=== PATIENT | female | born 1955 | race Caucasian/White ===

== ENCOUNTER 2020-06-30 10:36 | Outpatient (REF) | payer OTHER, SELFPAY ==
[2020-06-30 11:14] LABS: MANUAL DIFF FLAG NO
[2020-06-30 11:35] LABS: Basophils Absolute Auto 0.1 X10*3/uL (0.0-0.2); Basophils Percent Auto 1.1 % (0-2); Eosinophils Absolute Auto 0.1 X10*3/uL (0.0-0.4); Eosinophils Percent Auto 2.5 % (0-4); Hematocrit 46.1 % (37-47); Hemoglobin 15.1 g/dl (12.0-16.0); Imm Gran Abs Auto 0.03 X10*3/uL (0.00-0.03); Imm Gran Pct Auto 0.5 % (0.0-0.4); Lymphocytes Absolute Auto 1.5 X10*3/uL (1.2-4.9); Lymphocytes Percent Auto 27.3 % (20-40); Mean Corpuscular HGB Conc 32.8 g/dl (31.0-35.0); Mean Corpuscular Hemoglobin 29.5 pg (27.0-33.0); Mean Corpuscular Volume 90.2 fL (80-98); Mean Platelet Volume 11.6 fL (9.4-12.3); Monocytes Absolute Auto 0.4 X10*3/uL (0.1-1.2); Monocytes Percent Auto 7.8 % (2-11); Neutrophils Absolute Auto 3.4 X10*3/uL (2.0-8.3); Neutrophils Percent Auto 60.8 % (45-73); Platelet Count 214 X10*3/uL (160-400); Red Blood Count 5.11 X10*6/uL (4.20-5.50); Red Cell Distribution Width 13.5 % (11.0-16.0); White Blood Count 5.5 X10*3/uL (4.8-10.8)
[2020-06-30 11:43] LABS: Alanine Aminotransferase 33 U/L (0-31); Albumin Level 4.2 g/dL (3.5-5.0); Alkaline Phosphatase 102 U/L (39-117); Anion Gap 13 (12-20); Aspartate Amino Transferase 25 U/L (5-31); Bilirubin Total 0.6 mg/dL (0.0-1.0); Blood Urea Nitrogen 19 mg/dL (9-16); Calcium 9.4 mg/dL (8.4-10.2); Carbon Dioxide 26 mmol/L (22-29); Chloride 104 mmol/L (96-108); Cholesterol 210 mg/dL; Estimated Glomerular Filt Rate > 60; Glucose Random 192 mg/dL (60-115); HDL Cholesterol 48 mg/dL; LDL Cholesterol Calculated 129 mg/dl; Potassium 4.5 mmol/L (3.3-5.1); Sodium 138 mmol/L (135-145); Total Protein 7.2 g/dL (6.5-8.0); Triglycerides 165 mg/dL
[2020-06-30 12:05] LABS: Free T4 (Free Thyroxine) 0.93 ng/dL (0.71-1.85); Thyroid Stimulating Hormone 0.62 uIU/mL (0.32-4.0); Vitamin D 25-OH Total 25.8 ng/mL (>30)
[2020-06-30 12:17] LABS: Folate 10.1 ng/mL (> or = 4.0); Vitamin B12 308 pg/mL (200-900)
== END 2020-06-30 10:37 | disposition home or self-care (01) ==
LOC: HO.LAB 10:36
PROVIDERS: PCP Internal Medicine; Visit Provider Internal Medicine
DX: R73.02 Impaired glucose tolerance (oral) (principal); F31.32 Bipolar disorder, current episode depressed, moderate; I10 Essential (primary) hypertension; E78.00 Pure hypercholesterolemia, unspecified; G62.9 Polyneuropathy, unspecified
CPT/HCPCS: 36415; 80053; 80061; 82306; 82607; 82746; 84439; 84443; 85025

== ENCOUNTER → 2020-08-29 08:23 | Outpatient (BNVA) | payer OTHER, SELFPAY | PROVIDERS: PCP Internal Medicine; Visit Provider Surgery ==

== ENCOUNTER → 2020-09-11 08:47 | Outpatient (BNVA) | payer OTHER, SELFPAY | PROVIDERS: PCP Internal Medicine; Visit Provider Physician Assistant ==

== ENCOUNTER → 2020-09-28 08:07 | Outpatient (BNVA) | payer OTHER, SELFPAY | PROVIDERS: PCP Internal Medicine; Visit Provider Dietitian, Registered ==

== ENCOUNTER 2021-03-01 10:48 | Outpatient (REF) | payer OTHER, SELFPAY ==
--- NOTE | ~2021-03-01 | MM_ITS ---
EXAMINATION: MM SCREENING DIGITAL BREAST TOMOSYNTHESIS, BILATERAL CLINICAL INFORMATION: Screening. Asymptomatic. The lifetime risk of breast cancer based on the Tyrer-Cuzick Model is 9%. COMPARISON: Mammography: 09/19/2016, 12/26/2014 TECHNIQUE: Digital breast tomosynthesis is performed in both the craniocaudal and mediolateral oblique views along with computer-aided detection (CAD). Synthesized 2D images are generated from the tomosynthesis. Additional left CC view is provided. FINDINGS: The breasts are almost entirely fatty (ACR BI-RADS breast composition Category a). Background stromal densities are stable. There are scattered bilateral round and dermal calcifications. Punctate grouped calcifications mid upper outer left breast are also unchanged. No developing density. The axilla and skin contours are unremarkable. MM/MM tomosynthesis screening BI IMPRESSION: No mammographic evidence of malignancy. ASSESSMENT: BI-RADS 2: Benign RECOMMENDATION: Routine annual mammography screening. This patient's information was entered into a reminder system with a target due date for their next mammogram.
== END 2021-03-01 10:49 | disposition home or self-care (01) ==
LOC: HO.MAMMO 10:48
PROVIDERS: PCP Internal Medicine; Visit Provider Internal Medicine
DX: Z12.31 Encounter for screening mammogram for malignant neoplasm of breast (principal)
CPT/HCPCS: 77063; 77067

== ENCOUNTER 2021-05-15 08:03 | Outpatient (REF) | payer OTHER, SELFPAY ==
[2021-05-15 09:04] LABS: Hematocrit 47.1 % (37.0-47.0); Hemoglobin 15.4 g/dl (12.0-16.0); Mean Corpuscular HGB Conc 32.7 g/dl (31.0-35.0); Mean Corpuscular Hemoglobin 29.4 pg (27.0-33.0); Mean Corpuscular Volume 89.9 fL (80.0-98.0); Mean Platelet Volume 11.7 fL (9.4-12.3); Platelet Count 216 X10*3/uL (160-400); Red Blood Count 5.24 X10*6/uL (4.20-5.50); Red Cell Distribution Width 13.5 % (11.0-16.0); White Blood Count 6.7 X10*3/uL (4.8-10.8)
[2021-05-15 09:21] LABS: Estimated Average Glucose 143 mg/dL; Hemoglobin A1c % 6.6 %
[2021-05-15 09:27] LABS: Anion Gap 12 (12-20); Blood Urea Nitrogen 15 mg/dL (9-16); C Reactive Protein 0.39 mg/dL (< or = 0.50); Calcium 10.1 mg/dL (8.4-10.2); Carbon Dioxide 29 mmol/L (22-29); Chloride 104 mmol/L (96-108); Estimated Glomerular Filt Rate > 60; Glucose Random 166 mg/dL (60-115); Iron 102 mcg/dL (30-160); Percent Iron Saturation 29 % (15-50); Potassium 4.5 mmol/L (3.3-5.1); Sodium 140 mmol/L (135-145); Total Iron Binding Capacity 353 mcg/dL (228-428); Unsaturated Iron Binding 251 ug/dL
[2021-05-15 09:47] LABS: Vitamin D 25-OH Total 19.6 ng/mL (>30)
[2021-05-16 13:07] LABS: Calcium (PTHI) 9.7 mg/dL (8.6-10.4); PTHI 61 pg/mL (14-64)
[2021-05-19 00:02] LABS: Zinc 83 mcg/dL (60-130)
[2021-05-20 11:16] LABS: Vitamin B1 11 nmol/L (8-30)
[2021-05-21 16:36] LABS: Vitamin A 45 mcg/dL (38-98)
== END 2021-05-15 08:04 | disposition home or self-care (01) ==
LOC: HO.LAB 08:03
PROVIDERS: Surgery; PCP Internal Medicine; Visit Provider Internal Medicine
DX: Z01.818 Encounter for other preprocedural examination (principal); K91.2 Postsurgical malabsorption, not elsewhere classified; Z90.3 Acquired absence of stomach [part of]
CPT/HCPCS: 36415; 80048; 82306; 83036; 83540; 83970; 84425; 84590; 84630; 85027; 86140

== ENCOUNTER 2021-05-16 11:31 | Outpatient (REF) | payer OTHER, SELFPAY ==
--- NOTE | ~2021-05-16 | US_ITS ---
EXAMINATION: US VENOUS ULTRASOUND WITH DOPPLER LOWER EXTREMITY, LEFT CLINICAL INFORMATION: Leg pain. Assess for occult DVT. COMPARISON: None TECHNIQUE: Ultrasound of the deep veins is performed from the hip to the calf with compression sonography and color and pulse Doppler assessment. Spectral analysis with color-flow imaging is performed. FINDINGS: There is normal venous compression and respiratory variation and augmented flow. The visualized common femoral vein, superficial femoral vein, profunda femoral vein, popliteal vein, and the trifurcation region shows no evidence of deep venous thrombosis. There is a popliteal fossa cyst measuring 0.7 x 4.0 x 4.0 cm. No fluid tracking in soft tissue planes. US/US venous duplex LE LT IMPRESSION: 1. No DVT demonstrated in the left lower extremity. 2. Popliteal fossa cyst 0.7 x 4.0 x 4.0 cm.
== END 2021-05-16 11:32 | disposition home or self-care (01) ==
LOC: HO.US 11:31
PROVIDERS: PCP Internal Medicine; Visit Provider Internal Medicine
DX: M79.605 Pain in left leg (principal)
CPT/HCPCS: 93971

== ENCOUNTER 2021-07-01 16:53 | Emergency (ER) | payer OTHER, SELFPAY ==
--- NOTE | ~2021-07-01 | CT_ITS ---
EXAMINATION: CT ABDOMEN AND PELVIS WITH CONTRAST CLINICAL INFORMATION: Epigastric pain COMPARISON: None TECHNIQUE: Multidetector volumetric images were obtained from the superior aspect of the liver through the pubic symphysis following administration 85 mL of Omnipaque 350 intravenous contrast. Sagittal and coronal reformatted images were obtained on the technologist's workstation. Oral contrast: No This CT examination was performed using dose optimization techniques as appropriate, variously including the following: *Automated exposure control *Adjustment of mA and/or kV according to patient size (this includes techniques or standardized protocols for targeted exams where dose is matched to indication/reason for exam; i.e. extremities or head) *Use of iterative reconstruction technique DLP: 860 mGy-cm FINDINGS: LUNG BASES: The visualized lung bases are unremarkable. LIVER, GALLBLADDER, AND BILIARY TREE: The liver is normal in size, shape, and attenuation. No focal hepatic lesion or biliary ductal dilatation is present. Status post cholecystectomy. PANCREAS: Unremarkable. SPLEEN: Unremarkable. ADRENAL GLANDS: There is a 3.0 x 2.6 x 3.3 cm left adrenal mass present which contains a 2 cm rounded fat density nodule. Findings are consistent with a benign adrenal myelolipoma. The right adrenal gland appears normal. KIDNEYS AND URETERS: The kidneys are normal in size, shape, and attenuation. Parapelvic benign renal cysts are most likely present. No solid renal masses are seen. No hydronephrosis, hydroureter, or calculi seen. No perinephric stranding. BLADDER: Poorly filled but unremarkable. GASTROINTESTINAL TRACT: A tiny hiatal hernia is present. The small and large bowel are unremarkable aside from minimal colonic diverticula without diverticulitis.. The appendix is not seen. ABDOMINAL WALL: No significant hernia is appreciated. LYMPH NODES: No retroperitoneal lymphadenopathy. VASCULAR: Unremarkable. Minimal calcified plaque is present without aneurysm or stenosis. PELVIC VISCERA: A normal anteverted uterus is present. An abnormal adnexal mass or free fluid is not seen. OSSEOUS STRUCTURES: Mild degenerative changes are present in the spine. CT/CT abdomen pelvis w con IMPRESSION: 1. A cause for the patient's acute epigastric pain has not been found. 2. Benign 3.3 cm left adrenal myelolipoma. 3. Benign parapelvic renal cysts without hydronephrosis. No further imaging should be necessary. Fleischner guidelines were followed.
--- NOTE | ~2021-07-01 | XR_ITS ---
EXAMINATION: XR CHEST CLINICAL INFORMATION: Shortness of breath COMPARISON: 09/22/2015 TECHNIQUE: Frontal view of the chest was obtained. FINDINGS: No significant abnormality is noted involving the heart, lungs, mediastinum, bony thorax or soft tissues. XR/XR chest 1V IMPRESSION: Unremarkable examination.
[2021-07-01 16:58] VITALS: BP 162/99; PULSE 110; RESP 22; TEMP 37; O2SAT 100; BMI 38.0
--- NOTE | 2021-07-01 17:21 | ECG_ITS ---
Test Reason : GI BLEED Blood Pressure : / mmHG Vent. Rate : 080 BPM Atrial Rate : 080 BPM P-R Int : 174 ms QRS Dur : 068 ms QT Int : 386 ms P-R-T Axes : 018 007 004 degrees QTc Int : 445 ms Normal sinus rhythm Normal ECG When compared with ECG of 11-OCT-2008 07:16, No significant change was found Referred By: Angle Green Electronically Signed By:Jason Lucio
--- NOTE | 2021-07-01 17:25 | ED_ITS ---
HPI - Abdominal Pain General Chief Complaint: Abdominal Pain Stated Complaint: diarhea, abdominal pain Time Seen by Provider: 07/01/21 17:06 History of Present Illness HPI narrative: Patient is a 66-year-old female with a history of diabetes. Presents today with having 3 day history of black stool. Epigastric pain radiating to the back. Denies any chest pain no diaphoresis. No fever no chills. Patient claims that she had the pain 1st then had black stool. Subsequent to that patient did take Motrin to relieve the pain. It did not help. Patient took Pepto-Bismol yesterday. No history of being on blood thinners. No nausea no vomiting. Positive generalized malaise. No fever no chills. No history of alcohol abuse. Have not drank alcohol in the last 3 years. Patient from home. No travel history. Patient is status post cholecystectomy status post appendectomy. Related Data Home Medications Medication Instructions Recorded Confirmed melatonin 10 mg capsule 10 mg PO BEDTIME PRN 10/04/20 05/16/21 Previous Rx's Medication Instructions Recorded aspirin 81 mg tablet,delayed 81 mg PO DAILY #60 tab 07/04/20 release cholestyramine-aspartame 4 gram 4 g PO BID #60 ea 07/04/20 oral powder for susp in a packet (Prevalite) duloxetine 60 mg capsule,delayed 60 mg PO DAILY #30 cap 07/04/20 release (Cymbalta) lisinopril 40 mg tablet 40 mg PO DAILY #30 tab 09/22/20 omeprazole 20 mg capsule,delayed 20 mg PO DAILY 90 Days #90 cap 10/06/20 release metoprolol tartrate 50 mg tablet 75 mg PO BID 90 Days #270 tab 12/28/20 alprazolam 0.25 mg tablet 0.25 mg PO BEDTIME PRN #10 tab 04/10/21 pregabalin 50 mg capsule (Lyrica) 50 mg PO BID 30 Days #60 cap 05/16/21 metformin 500 mg tablet 500 mg PO BID 90 Days #180 tab 06/20/21 ondansetron 4 mg disintegrating 4 mg PO TID PRN 5 Days #10 tab 07/01/21 tablet Allergies Allergy/AdvReac Type Severity Reaction Status Date / Time No Known Allergies Allergy Verified 05/16/21 09:51 Review of Systems Review of Systems Positive generalized malaise Positive epigastric pain Positive black stool All system reviewed otherwise negative Physical Exam Verdana 4l Vital Signs: Verdana 4d Verdana 4d Vital Signs: Verdana 4d Verdana 4Bd Last Vital Signs Verdana 4d Woodworking Machine Setter New 4d Woodworking Machine Setter New 4d Temp 99 F 07/01/21 19:07 Woodworking Machine Setter New 4d Pulse 80 07/01/21 19:07 Woodworking Machine Setter New 4d Resp 19 07/01/21 19:07 BP 168/85 H 07/01/21 19:07 Pulse Ox 100 07/01/21 19:07 BMI result Body Mass Index 38.0 Appearance: Alert. Oriented X3. No acute distress. Eyes: Pupils equal, round and reactive to light. ENT: Pharynx normal. Neck: Normal inspection. Neck supple. No lymph nodes noted. No crepitus CVS: Normal heart rate and rhythm. Pulses normal. Normal S1 and S2 Respiratory: No respiratory distress. Breath sounds normal. No Wheezing. No rales Abdomen: Mild epigastric pain no rebound or guarding. Skin: Skin warm and dry. Normal skin color. Normal skin turgor. Rectal exam done with nursing present. Minimal amount of black stools noted. Positive external hemorrhoid noted. Extremities: No lower extremity edema. Neurovascular intact to all extremities. No Lacerations. No Rash Neuro: Oriented X 3. No motor deficit. No sensory deficit. Moving all extermities. No slurred speech MDM - Abdominal Pain MDM Narrative Medical decision making narrative: EKG showed a sinus pattern heart rate is 80 NM QRS QTC within normal limits is no acute ST segment elevation Patient's electrolytes are unremarkable. LFTs and lipase are negative. Unlikely to have pancreatitis. Unlikely to have liver disease. Patient's stool was heme-negative. Hemoglobin is baseline. Stool was darker patient already taken some Pepto-Bismol prior to arrival. Told not to take NSAIDs. Will start patient on PPI. CT scan of the abdomen pelvis did not show any acute evidence of abscess perforation. No obstruction. Patient is in stable condition. Patient's troponin was negative EKG was normal. No chest pain only abdominal pain in the epigastric area on likely secondary to ACS. Patient is in stable condition with discharge home. Medical Records Attestation: I reviewed the patient's medical records. Lab Data Attestation: I reviewed the patient's lab results. Result diagrams: 07/01/21 18:01 07/01/21 18:01 Labs: Lab Results 07/01/21 07/01/21 07/01/21 Range/Units 18:01 18:01 18:01 WBC 5.9 (4.8-10.8) X10*3/uL RBC 5.15 (4.20-5.50) X10*6/uL Hgb 15.2 (12.0-16.0) g/dl Hct 45.3 (37.0-47.0) % MCV 88.0 (80.0-98.0) fL MCH 29.5 (27.0-33.0) pg MCHC 33.6 (31.0-35.0) g/dl RDW 13.2 (11.0-16.0) % Plt Count 190 (160-400) X10*3/uL MPV 11.6 (9.4-12.3) fL Immature Gran % (Auto) 0.2 (0.0-0.4) % Neut % (Auto) 55.2 (45-73) % Lymph % (Auto) 32.0 (20-40) % [place] % (Auto) 10.2 (2-11) % Eos % (Auto) 1.9 (0-4) % Baso % (Auto) 0.5 (0-2) % Lymph # (Auto) 1.9 (1.2-4.9) X10*3/uL [place] # (Auto) 0.6 (0.1-1.2) X10*3/uL Eos # (Auto) 0.1 (0.0-0.4) X10*3/uL Baso # (Auto) 0.0 (0.0-0.2) X10*3/uL Abs Immat Gran (auto) 0.01 (0.00-0.03) X10*3/uL Absolute Neuts (auto) 3.3 (2.0-8.3) x10*3/uL Absolute Nucleated RBC 0.000 (0.0-0.012) X10*3/uL Nucleated RBC % (auto) 0.0 (0.0-0.2) /100WBC Sodium 141 (135-145) mmol/L Potassium 3.6 (3.3-5.1) mmol/L Chloride 108 (96-108) mmol/L Carbon Dioxide 21 L (22-29) mmol/L Anion Gap 16 (12-20) BUN 16 (9-16) mg/dL Creatinine 0.83 (0.5-1.4) mg/dL Estim Creat Clear Calc 70.4 Estimated GFR > 60 POC Glucose (60-115) mg/dL Random Glucose 125 H (60-115) mg/dL Calcium 9.6 (8.4-10.2) mg/dL Total Bilirubin 0.6 (0.0-1.0) mg/dL Direct Bilirubin 0.2 (0.0-0.5) mg/dL AST 26 (5-31) U/L ALT 33 H (0-31) U/L Alkaline Phosphatase 94 (39-117) U/L Troponin I High Sens < 3.5 (<3.5-17.0) ng/L Total Protein 7.1 (6.5-8.0) g/dL Albumin 4.1 (3.5-5.0) g/dL Lipase 19 (8-78) U/L Stool Occult Blood (NEGATIVE) COVID-19 (DENISE) (Negative) COVID-19 Clin Com Blood Type Antibody Screen 07/01/21 07/01/21 07/01/21 Range/Units 18:01 18:01 18:07 WBC (4.8-10.8) X10*3/uL RBC (4.20-5.50) X10*6/uL Hgb (12.0-16.0) g/dl Hct (37.0-47.0) % MCV (80.0-98.0) fL MCH (27.0-33.0) pg MCHC (31.0-35.0) g/dl RDW (11.0-16.0) % Plt Count (160-400) X10*3/uL MPV (9.4-12.3) fL Immature Gran % (Auto) (0.0-0.4) % Neut % (Auto) (45-73) % Lymph % (Auto) (20-40) % [place] % (Auto) (2-11) % Eos % (Auto) (0-4) % Baso % (Auto) (0-2) % Lymph # (Auto) (1.2-4.9) X10*3/uL [place] # (Auto) (0.1-1.2) X10*3/uL Eos # (Auto) (0.0-0.4) X10*3/uL Baso # (Auto) (0.0-0.2) X10*3/uL Abs Immat Gran (auto) (0.00-0.03) X10*3/uL Absolute Neuts (auto) (2.0-8.3) x10*3/uL Absolute Nucleated RBC (0.0-0.012) X10*3/uL Nucleated RBC % (auto) (0.0-0.2) /100WBC Sodium (135-145) mmol/L Potassium (3.3-5.1) mmol/L Chloride (96-108) mmol/L Carbon Dioxide (22-29) mmol/L Anion Gap (12-20) BUN (9-16) mg/dL Creatinine (0.5-1.4) mg/dL Estim Creat Clear Calc Estimated GFR POC Glucose (60-115) mg/dL Random Glucose (60-115) mg/dL Calcium (8.4-10.2) mg/dL Total Bilirubin (0.0-1.0) mg/dL Direct Bilirubin (0.0-0.5) mg/dL AST (5-31) U/L ALT (0-31) U/L Alkaline Phosphatase (39-117) U/L Troponin I High Sens (<3.5-17.0) ng/L Total Protein (6.5-8.0) g/dL Albumin (3.5-5.0) g/dL Lipase (8-78) U/L Stool Occult Blood NEGATIVE (NEGATIVE) COVID-19 (DENISE) Negative (Negative) COVID-19 Clin Com See Note Blood Type O Positive Antibody Screen NEGATIVE 07/01/21 Range/Units 18:19 WBC (4.8-10.8) X10*3/uL RBC (4.20-5.50) X10*6/uL Hgb (12.0-16.0) g/dl Hct (37.0-47.0) % MCV (80.0-98.0) fL MCH (27.0-33.0) pg MCHC (31.0-35.0) g/dl RDW (11.0-16.0) % Plt Count (160-400) X10*3/uL MPV (9.4-12.3) fL Immature Gran % (Auto) (0.0-0.4) % Neut % (Auto) (45-73) % Lymph % (Auto) (20-40) % [place] % (Auto) (2-11) % Eos % (Auto) (0-4) % Baso % (Auto) (0-2) % Lymph # (Auto) (1.2-4.9) X10*3/uL [place] # (Auto) (0.1-1.2) X10*3/uL Eos # (Auto) (0.0-0.4) X10*3/uL Baso # (Auto) (0.0-0.2) X10*3/uL Abs Immat Gran (auto) (0.00-0.03) X10*3/uL Absolute Neuts (auto) (2.0-8.3) x10*3/uL Absolute Nucleated RBC (0.0-0.012) X10*3/uL Nucleated RBC % (auto) (0.0-0.2) /100WBC Sodium (135-145) mmol/L Potassium (3.3-5.1) mmol/L Chloride (96-108) mmol/L Carbon Dioxide (22-29) mmol/L Anion Gap (12-20) BUN (9-16) mg/dL Creatinine (0.5-1.4) mg/dL Estim Creat Clear Calc Estimated GFR POC Glucose 116 H (60-115) mg/dL Random Glucose (60-115) mg/dL Calcium (8.4-10.2) mg/dL Total Bilirubin (0.0-1.0) mg/dL Direct Bilirubin (0.0-0.5) mg/dL AST (5-31) U/L ALT (0-31) U/L Alkaline Phosphatase (39-117) U/L Troponin I High Sens (<3.5-17.0) ng/L Total Protein (6.5-8.0) g/dL Albumin (3.5-5.0) g/dL Lipase (8-78) U/L Stool Occult Blood (NEGATIVE) COVID-19 (DENISE) (Negative) COVID-19 Clin Com Blood Type Antibody Screen Discharge Plan Discharge Clinical Impression: Abdominal pain Patient Disposition: Home, Self-Care Instructions: Gastritis (DC) Prescriptions: New ondansetron 4 mg tablet,disintegrating 4 mg PO TID PRN (Reason: nausea and vomiting) 5 Days Qty: 10 0RF No Action lisinopril 40 mg tablet 40 mg PO DAILY Qty: 30 2RF omeprazole 20 mg capsule,delayed release(DR/EC) 20 mg PO DAILY 90 Days Qty: 90 3RF metoprolol tartrate 50 mg tablet 75 mg PO BID 90 Days Qty: 270 2RF alprazolam 0.25 mg tablet 0.25 mg PO BEDTIME PRN (Reason: anxiety) Qty: 10 0RF metformin 500 mg tablet 500 mg PO BID 90 Days Qty: 180 3RF Prevalite 4 gram powder in packet 4 g PO BID Qty: 60 2RF Rx Instructions: administer w/meal; avoid other meds within 1hr before or 4-6hr after dose duloxetine [Cymbalta] 60 mg capsule,delayed release(DR/EC) 60 mg PO DAILY Qty: 30 5RF aspirin 81 mg tablet,delayed release (DR/EC) 81 mg PO DAILY Qty: 60 0RF melatonin 10 mg capsule 10 mg PO BEDTIME PRN0RF pregabalin [Lyrica] 50 mg capsule 50 mg PO BID 30 Days Qty: 60 0RF Referrals: Po,Lesly Puckett MD [Primary Care Provider] - 2 days PMF Past Medical History Attestation statement: The following information was validated with the patient. Medical History Anxiety Arthritis Bile salt-induced diarrhea Carpal tunnel syndrome Cataract Diverticulosis Fibromyalgia GERD (gastroesophageal reflux disease) Hypercholesterolemia Hypertension Insomnia Obesity Preop exam for internal medicine Urge incontinence Vitamin D deficiency Surgical History H/O ovarian cystectomy History of appendectomy History of carpal tunnel release History of cataract surgery History of cholecystectomy History of colonoscopy History of discectomy History of tonsillectomy Family History Family History Father Hypertension CVD (cardiovascular disease) Cancer Mother Hypertension Diabetes Maternal Aunt Colon cancer Father No problems noted. Sister Diabetes Sister Diabetes Sister Diabetes Brother Diabetes Son No problems noted. Son No problems noted. Social History Social History Housing: House Alcohol intake: current Alcohol intake frequency: holidays/special occasions only Patient Tobacco Use Status: Never used Tobacco e-Cigarette/Vaping Use: Never Used Second Hand Smoke Exposure: No Advance Directives: No Advance Directives Information Provided: No Patient : No Current occupational status: employed
[2021-07-01 18:13] LABS: MANUAL DIFF FLAG NO
[2021-07-01 18:16] LABS: Basophils Percent Auto 0.5 % (0-2); Eosinophils Absolute Auto 0.1 X10*3/uL (0.0-0.4); Eosinophils Percent Auto 1.9 % (0-4); Hematocrit 45.3 % (37.0-47.0); Hemoglobin 15.2 g/dl (12.0-16.0); Imm Gran Abs Auto 0.01 X10*3/uL (0.00-0.03); Imm Gran Pct Auto 0.2 % (0.0-0.4); Lymphocytes Absolute Auto 1.9 X10*3/uL (1.2-4.9); Mean Corpuscular HGB Conc 33.6 g/dl (31.0-35.0); Mean Corpuscular Hemoglobin 29.5 pg (27.0-33.0); Mean Platelet Volume 11.6 fL (9.4-12.3); Monocytes Absolute Auto 0.6 X10*3/uL (0.1-1.2); Monocytes Percent Auto 10.2 % (2-11); Neutrophils Absolute Auto 3.3 x10*3/uL (2.0-8.3); Neutrophils Percent Auto 55.2 % (45-73); Platelet Count 190 X10*3/uL (160-400); Red Blood Count 5.15 X10*6/uL (4.20-5.50); Red Cell Distribution Width 13.2 % (11.0-16.0); White Blood Count 5.9 X10*3/uL (4.8-10.8)
[2021-07-01 18:17] LABS: OBS Int Ctl Valid YES; OBS1 NEGATIVE (NEGATIVE)
[2021-07-01 18:23] LABS: Glucose, Whole Blood 116 mg/dL (60-115)
[2021-07-01] MEDS: 0.9 % Sodium Chloride 500 ML 999 ML IV (18:27)
[2021-07-01 18:29] LABS: COVID-19 Test Negative (Negative); IDNOW Serial# 9DD0AD1C
[2021-07-01] MEDS: HYDROmorphone HCl 0.5 MG/0.5 ML SYRINGE IVPUSH (18:30)
[2021-07-01 18:33] LABS: Troponin-I High Sensitivity < 3.5 ng/L (<3.5-17.0)
[2021-07-01 18:35] LABS: Alanine Aminotransferase 33 U/L (0-31); Albumin Level 4.1 g/dL (3.5-5.0); Alkaline Phosphatase 94 U/L (39-117); Anion Gap 16 (12-20); Aspartate Amino Transferase 26 U/L (5-31); Bilirubin Direct 0.2 mg/dL (0.0-0.5); Bilirubin Total 0.6 mg/dL (0.0-1.0); Blood Urea Nitrogen 16 mg/dL (9-16); Calcium 9.6 mg/dL (8.4-10.2); Carbon Dioxide 21 mmol/L (22-29); Chloride 108 mmol/L (96-108); Creatinine Clr Calc Pharmacy 70.4; Estimated Glomerular Filt Rate > 60; Glucose Random 125 mg/dL (60-115); Lipase 19 U/L (8-78); Potassium 3.6 mmol/L (3.3-5.1); Sodium 141 mmol/L (135-145); Total Protein 7.1 g/dL (6.5-8.0)
[2021-07-01 19:07] VITALS: BP 168/85; PULSE 80; RESP 19; TEMP 37.2; O2SAT 100
[2021-07-01] MEDS: iohexoL 350 MG/ML 100 ML INFUS..BTL 85 ML IV (19:15)
== END 2021-07-01 20:20 | disposition home or self-care (01) ==
PROVIDERS: Emergency Provider Emergency Medicine Emergency Medical Services; PCP Internal Medicine
DX: R10.13 Epigastric pain (principal); R19.7 Diarrhea, unspecified; Z79.899 Other long term (current) drug therapy; Z79.82 Long term (current) use of aspirin; Z20.822 Contact with and (suspected) exposure to COVID-19
CPT/HCPCS: 36415; 71045; 74177; 80048; 80076; 82272; 82947; 83690; 84484; 85025; 86850; 86900; 86901; 87635; 93005; 96360; 96361; 96375; 99284; J1170; Q9967

== ENCOUNTER 2021-08-14 09:43 | Outpatient (REF) | payer OTHER, SELFPAY ==
[2021-08-14 10:07] LABS: MANUAL DIFF FLAG NO
[2021-08-14 10:44] LABS: Basophils Absolute Auto 0.1 X10*3/uL (0.0-0.2); Basophils Percent Auto 0.7 % (0-2); Eosinophils Absolute Auto 0.2 X10*3/uL (0.0-0.4); Hematocrit 47.4 % (37.0-47.0); Hemoglobin 15.4 g/dl (12.0-16.0); Imm Gran Abs Auto 0.03 X10*3/uL (0.00-0.03); Imm Gran Pct Auto 0.4 % (0.0-0.4); Lymphocytes Absolute Auto 2.1 X10*3/uL (1.2-4.9); Lymphocytes Percent Auto 27.9 % (20-40); Mean Corpuscular HGB Conc 32.5 g/dl (31.0-35.0); Mean Corpuscular Hemoglobin 29.6 pg (27.0-33.0); Mean Corpuscular Volume 91.2 fL (80.0-98.0); Mean Platelet Volume 11.4 fL (9.4-12.3); Monocytes Absolute Auto 0.6 X10*3/uL (0.1-1.2); Monocytes Percent Auto 7.2 % (2-11); Neutrophils Absolute Auto 4.7 x10*3/uL (2.0-8.3); Neutrophils Percent Auto 61.8 % (45-73); Platelet Count 215 X10*3/uL (160-400); Red Cell Distribution Width 13.2 % (11.0-16.0); White Blood Count 7.6 X10*3/uL (4.8-10.8)
[2021-08-14 11:04] LABS: Estimated Average Glucose 143 mg/dL; Hemoglobin A1c % 6.6 %
[2021-08-14 11:15] LABS: Alanine Aminotransferase 23 U/L (0-31); Albumin Level 4.4 g/dL (3.5-5.0); Alkaline Phosphatase 106 U/L (39-117); Anion Gap 14 (12-20); Aspartate Amino Transferase 16 U/L (5-31); Bilirubin Total 0.6 mg/dL (0.0-1.0); Blood Urea Nitrogen 20 mg/dL (9-16); Carbon Dioxide 24 mmol/L (22-29); Chloride 105 mmol/L (96-108); Cholesterol 209 mg/dL; Estimated Glomerular Filt Rate > 60; Glucose Random 163 mg/dL (60-115); HDL Cholesterol 62 mg/dL; LDL Cholesterol Calculated 126 mg/dl; Sodium 138 mmol/L (135-145); Total Protein 7.6 g/dL (6.5-8.0); Triglycerides 107 mg/dL
[2021-08-14 11:39] LABS: Thyroid Stimulating Hormone 1.43 uIU/mL (0.32-4.0)
[2021-08-14 11:43] LABS: Folate 7.9 ng/mL (> or = 4.0); Vitamin B12 283 pg/mL (200-900)
[2021-08-14 12:27] LABS: Creatinine Urine 231.29 mg/dL; Microalbum/Creatinine Ratio Ur 18.5 ug/mg cr
[2021-08-16 14:04] LABS: Vitamin D 25-OH Total 21.2 ng/mL (>30)
== END 2021-08-14 09:44 | disposition home or self-care (01) ==
LOC: HO.LAB 09:43
PROVIDERS: PCP Internal Medicine; Visit Provider Internal Medicine
DX: E11.65 Type 2 diabetes mellitus with hyperglycemia (principal); E78.00 Pure hypercholesterolemia, unspecified
CPT/HCPCS: 36415; 80053; 80061; 82043; 82306; 82607; 82746; 83036; 84443; 85025

== ENCOUNTER 2021-09-10 10:04 | Outpatient (REF) | payer OTHER, SELFPAY ==
--- NOTE | ~2021-09-10 | XR_ITS ---
EXAMINATION: XR KNEE-BILATERAL CLINICAL INFORMATION: Right knee pain. COMPARISON: None TECHNIQUE: 5 views each of both knees were obtained. FINDINGS: Right knee: Moderate tricompartmental osteoarthrosis is present. No evidence of any superimposed fracture and/or subluxation or dislocation or joint effusion. Left knee: Moderate-severe tricompartmental osteoarthrosis is present without any radiographic evidence of superimposed fracture and/or subluxation or dislocation. No evidence of any joint effusion present. XR/XR knee LT 2V IMPRESSION: 1. Tricompartmental osteoarthrosis (left greater than right).
--- NOTE | ~2021-09-10 | XR_ITS ---
EXAMINATION: XR KNEE-BILATERAL CLINICAL INFORMATION: Right knee pain. COMPARISON: None TECHNIQUE: 5 views each of both knees were obtained. FINDINGS: Right knee: Moderate tricompartmental osteoarthrosis is present. No evidence of any superimposed fracture and/or subluxation or dislocation or joint effusion. Left knee: Moderate-severe tricompartmental osteoarthrosis is present without any radiographic evidence of superimposed fracture and/or subluxation or dislocation. No evidence of any joint effusion present. XR/XR knee RT 2V IMPRESSION: 1. Tricompartmental osteoarthrosis (left greater than right).
== END 2021-09-10 10:05 | disposition home or self-care (01) ==
LOC: HO.XRAY 10:04
PROVIDERS: PCP Internal Medicine; Visit Provider Internal Medicine
DX: M25.561 Pain in right knee (principal); M25.562 Pain in left knee
CPT/HCPCS: 73560

== ENCOUNTER 2021-11-21 08:52 | Outpatient (REF) | payer OTHER, SELFPAY ==
[2021-11-21 10:44] LABS: Estimated Average Glucose 151 mg/dL; Hemoglobin A1c % 6.9 %
[2021-11-21 11:10] LABS: Alanine Aminotransferase 24 U/L (0-31); Albumin Level 4.2 g/dL (3.5-5.0); Alkaline Phosphatase 117 U/L (39-117); Anion Gap 14 (12-20); Aspartate Amino Transferase 20 U/L (5-31); Bilirubin Direct 0.2 mg/dL (0.0-0.5); Bilirubin Total 0.6 mg/dL (0.0-1.0); Blood Urea Nitrogen 14 mg/dL (9-16); Calcium 9.4 mg/dL (8.4-10.2); Carbon Dioxide 25 mmol/L (22-29); Chloride 104 mmol/L (96-108); Estimated Glomerular Filt Rate > 60; Glucose Random 187 mg/dL (60-115); Potassium 4.9 mmol/L (3.3-5.1); Sodium 138 mmol/L (135-145); Total Protein 7.2 g/dL (6.5-8.0)
== END 2021-11-21 08:53 | disposition home or self-care (01) ==
LOC: HO.LAB 08:52
PROVIDERS: PCP Internal Medicine; Visit Provider Internal Medicine
DX: E78.00 Pure hypercholesterolemia, unspecified (principal); R79.89 Other specified abnormal findings of blood chemistry
CPT/HCPCS: 36415; 80053; 82248; 83036

== ENCOUNTER 2021-11-23 15:21 | Outpatient (REF) | payer OTHER, SELFPAY ==
--- NOTE | ~2021-11-23 | XR_ITS ---
EXAMINATION: XR WRIST, RIGHT CLINICAL INFORMATION: Wrist pain, near navicular. Injury approximately 2 weeks ago. COMPARISON: Radiographs right hand 08/22/2017 TECHNIQUE: Right wrist is imaged in 4 views including a navicular projection. FINDINGS: There is no visible fracture or dislocation. The ulnar variance is neutral. There is no focal joint narrowing or erosive change. The pronator quadratus fat pad appears normal. The lateral view shows some faint mineralization in the proximal volar side adjacent to the proximal carpal bone row, not visible on the other views, and not present on prior exam 2018. XR/XR hand wrist RT IMPRESSION: -No visible fracture or dislocation. -Faint mineralization volar side proximal carpus, new from prior imaging 2018. Finding may represent soft tissue mineralization. Cortical avulsion from proximal carpal bones cannot be excluded. If clinically indicated, further assessment of the wrist could be obtained with noncontrast CT.
[2021-11-23 16:06] LABS: Estimated Average Glucose 148 mg/dL; Hemoglobin A1c % 6.8 %
[2021-11-23 16:08] LABS: Alanine Aminotransferase 21 U/L (0-31); Alkaline Phosphatase 117 U/L (39-117); Anion Gap 12 (12-20); Aspartate Amino Transferase 17 U/L (5-31); Bilirubin Total 0.5 mg/dL (0.0-1.0); Blood Urea Nitrogen 16 mg/dL (9-16); Carbon Dioxide 26 mmol/L (22-29); Chloride 103 mmol/L (96-108); Cholesterol 221 mg/dL; Estimated Glomerular Filt Rate > 60; Glucose Random 170 mg/dL (60-115); HDL Cholesterol 52 mg/dL; LDL Cholesterol Calculated 121 mg/dl; Potassium 4.3 mmol/L (3.3-5.1); Sodium 137 mmol/L (135-145); Triglycerides 244 mg/dL
[2021-11-23 16:22] LABS: Creatinine Urine 125.11 mg/dL
== END 2021-11-23 15:22 | disposition home or self-care (01) ==
LOC: HO.XRAY 15:21
PROVIDERS: PCP Internal Medicine; Visit Provider Internal Medicine
DX: M25.531 Pain in right wrist (principal); E78.00 Pure hypercholesterolemia, unspecified; E11.65 Type 2 diabetes mellitus with hyperglycemia
CPT/HCPCS: 36415; 73110; 73130; 80053; 80061; 83036

== ENCOUNTER 2021-12-28 09:30 | Outpatient (REF) | payer OTHER, SELFPAY | END 2021-12-28 09:31 | disposition home or self-care (01) | LOC: HO.HOSX 09:30 | PROVIDERS: Visit Provider Orthopaedic Surgery | DX: Z13.89 Encounter for screening for other disorder (principal) ==

== ENCOUNTER → 2022-01-22 13:24 | Outpatient (BNVA) | payer OTHER, SELFPAY | PROVIDERS: PCP Internal Medicine; Visit Provider Dietitian, Registered | DX: E11.65 Type 2 diabetes mellitus with hyperglycemia (principal); Z71.3 Dietary counseling and surveillance | CPT/HCPCS: 97802 ==

== ENCOUNTER 2022-08-26 09:00 | Emergency (ER) | payer OTHER, SELFPAY ==
--- NOTE | ~2022-08-26 | CT_ITS ---
EXAMINATION: CT ABDOMEN AND PELVIS WITH CONTRAST CLINICAL INFORMATION: Right-sided abdominal pain COMPARISON: 07/01/2021 TECHNIQUE: Multidetector volumetric images were obtained from the superior aspect of the liver through the pubic symphysis following administration 85 mL of Omnipaque 350 intravenous contrast. Sagittal and coronal reformatted images were obtained on the technologist's workstation. Oral contrast: No This CT examination was performed using dose optimization techniques as appropriate, variously including the following: *Automated exposure control *Adjustment of mA and/or kV according to patient size (this includes techniques or standardized protocols for targeted exams where dose is matched to indication/reason for exam; i.e. extremities or head) *Use of iterative reconstruction technique DLP: 869 mGy-cm FINDINGS: LUNG BASES: The visualized lung bases are unremarkable. LIVER, GALLBLADDER, AND BILIARY TREE: The liver is normal in size, shape, and attenuation. No focal hepatic lesion or biliary ductal dilatation is present. Cholecystectomy. PANCREAS: Unremarkable. SPLEEN: Unremarkable. ADRENAL GLANDS: Normal right adrenal gland. Left adrenal gland nodule measuring 2.1 cm, fat attenuation, consistent with a myolipoma. There is a surrounding area of hypoattenuation with the overall nodularity measuring 2.5 cm. This is similar to prior. The second area measures 40 Hounsfield units. KIDNEYS AND URETERS: The kidneys are normal in size, shape, and attenuation. No hydronephrosis, hydroureter, or calculi seen. No perinephric stranding. BLADDER: Unremarkable. GASTROINTESTINAL TRACT: Small hiatal hernia. Normal caliber small bowel. No obstruction. Scattered colonic diverticulosis without diverticulitis. No colonic wall thickening or inflammation. No free air or free fluid. Appendix not seen. ABDOMINAL WALL: No significant hernia is appreciated. LYMPH NODES: Normal. VASCULAR: Normal caliber aorta with mild atherosclerotic calcification. PELVIC VISCERA: The uterus and adnexa are unremarkable. OSSEOUS STRUCTURES: No acute or suspicious osseous abnormality. Mild degenerative changes of the spine. CT/CT abdomen pelvis w IV con IMPRESSION: 1. No acute findings in the abdomen or pelvis. No inflammatory changes. 2. Left adrenal gland myolipoma. The overall appearance is unchanged from prior study. There is a demarcated rim of hypoattenuating tissue surrounding the rounded fatty tissue. This entire lesion could be a single myolipoma, although this could be a collision lesion, with a second indeterminate lesion in addition to the myolipoma. This can be further evaluated with a nonemergent adrenal protocol MRI. Fleischner guidelines were followed.
[2022-08-26 09:02] VITALS: BP 123/59; PULSE 68; RESP 18; TEMP 36.6; O2SAT 98; BMI 38.7
--- NOTE | 2022-08-26 09:57 | ECG_ITS ---
Test Reason : CHEST PAIN Blood Pressure : / mmHG Vent. Rate : 057 BPM Atrial Rate : 057 BPM P-R Int : 200 ms QRS Dur : 072 ms QT Int : 412 ms P-R-T Axes : 063 014 014 degrees QTc Int : 401 ms Sinus bradycardia Otherwise normal ECG When compared with ECG of 01-JUL-2021 17:36, No significant change was found Referred By: Bear Grant Electronically Signed By:Jason Lucio
[2022-08-26] MEDS: 0.9 % Sodium Chloride 1,000 ML 999 ML IV (10:25)
[2022-08-26 10:33] VITALS: BP 102/55; PULSE 62; RESP 20; O2SAT 100
[2022-08-26 10:33] LABS: MANUAL DIFF FLAG NO
[2022-08-26 10:35] LABS: Basophils Absolute Auto 0.1 X10*3/uL (0.0-0.2); Basophils Percent Auto 0.7 % (0-2); Eosinophils Absolute Auto 0.2 X10*3/uL (0.0-0.4); Eosinophils Percent Auto 2.3 % (0-4); Hematocrit 43.1 % (37.0-47.0); Hemoglobin 14.6 g/dl (12.0-16.0); Imm Gran Abs Auto 0.02 X10*3/uL (0.00-0.03); Imm Gran Pct Auto 0.3 % (0.0-0.4); Lymphocytes Absolute Auto 2.2 X10*3/uL (1.2-4.9); Lymphocytes Percent Auto 29.8 % (20-40); Mean Corpuscular HGB Conc 33.9 g/dl (31.0-35.0); Mean Corpuscular Hemoglobin 29.9 pg (27.0-33.0); Mean Corpuscular Volume 88.1 fL (80.0-98.0); Mean Platelet Volume 11.8 fL (9.4-12.3); Monocytes Absolute Auto 0.6 X10*3/uL (0.1-1.2); Monocytes Percent Auto 8.6 % (2-11); Neutrophils Absolute Auto 4.2 x10*3/uL (2.0-8.3); Neutrophils Percent Auto 58.3 % (45-73); Platelet Count 195 X10*3/uL (160-400); Red Blood Count 4.89 X10*6/uL (4.20-5.50); Red Cell Distribution Width 13.7 % (11.0-16.0); White Blood Count 7.2 X10*3/uL (4.8-10.8)
[2022-08-26 10:40] LABS: Glucose, Whole Blood 143 mg/dL (60-115)
[2022-08-26 10:44] LABS: Appearance Urine Cloudy; Color Urine Yellow; Glucose Urine UA Negative (Negative); Leukocyte Esterase Urine Small (1+) (Negative); Nitrite Urine Negative (Negative); Specific Gravity - Urine >= 1.030 (1.005-1.025); UMIC TRIGGER UACC YES; Urine Blood Negative (Negative); Urine Ketones Negative (Negative); Urine Protein Negative (Neg-Trace)
[2022-08-26 10:54] LABS: RBC Urine 0-2 /HPF (0-2); UACC Culture Trigger YES; WBC Urine 0-5 /HPF (0-5)
[2022-08-26 10:55] LABS: Bacteria Urine None Seen (None Seen); Hyaline Casts Urine 0-2 /LPF (0-2); Other Crystals Urine Present
[2022-08-26 11:15] LABS: Troponin-I High Sensitivity < 3.5 ng/L (<3.5-17.0)
[2022-08-26 11:55] LABS: Alanine Aminotransferase 21 U/L (0-31); Albumin Level 3.6 g/dL (3.5-5.0); Alkaline Phosphatase 73 U/L (39-117); Anion Gap 9 (12-20); Aspartate Amino Transferase 15 U/L (5-31); Bilirubin Direct 0.2 mg/dL (0.0-0.5); Bilirubin Total 0.8 mg/dL (0.0-1.0); Blood Urea Nitrogen 31 mg/dL (9-16); Calcium 8.7 mg/dL (8.4-10.2); Carbon Dioxide 24 mmol/L (22-29); Chloride 111 mmol/L (96-108); Creatinine Clr Calc Pharmacy 49.4; Estimated Glomerular Filt Rate 46; Glucose Random 126 mg/dL (60-115); Lipase 12 U/L (8-78); Sodium 140 mmol/L (135-145)
[2022-08-26] MEDS: iohexoL 350 MG/ML 100 ML INFUS..BTL IV (12:22)
[2022-08-26 12:24] VITALS: BP 142/54; PULSE 72; RESP 20; O2SAT 100
[2022-08-26 12:32] LABS: Glucose, Whole Blood 112 mg/dL (60-115)
--- NOTE | 2022-08-26 12:39 | ED.GENADULT ---
HPI - General Adult General Chief complaint: Abdominal Pain Stated complaint: diarrhea tingling feeling through body Time Seen by Provider: 08/26/22 09:36 Source: patient Mode of arrival: ambulatory Limitations: no limitations History of Present Illness HPI narrative: 67-year-old female presents with abdominal pain and diarrhea. Symptoms started last Friday. The symptoms are moderate to severe in nature. There is no clear relieving or exacerbating features. The pain is generalized. It is crampy in nature. The pain is not radiate. It can be associated with nausea but no vomiting. She has had diarrhea but no recent antibiotic use. Diarrhea is nonbloody. Patient denies any sick contacts. Patient has had her gallbladder removed in the past. Related Data Home Medications Medication Instructions Recorded Confirmed melatonin 10 mg capsule 10 mg PO BEDTIME PRN 10/04/20 06/17/22 Previous Rx's Medication Instructions Recorded atorvastatin 10 mg tablet 10 mg PO DAILY 30 days #30 tabs 08/14/21 cholestyramine-aspartame 4 gram 4 g PO BID #60 ea 08/14/21 oral powder for susp in a packet (Prevalite) diclofenac sodium 1 % topical gel 4 g topical QID 30 days #100 grams 08/14/21 (Voltaren Arthritis Pain) blood sugar diagnostic (FreeStyle #100 ea 11/23/21 Lite Strips) blood-glucose meter (FreeStyle #1 ea 11/23/21 Lite Meter kit) lancets 28 gauge (FreeStyle #100 ea 11/23/21 Lancets) metformin 1,000 mg tablet 1,000 mg PO BID 90 days #180 tabs 11/23/21 alprazolam 0.25 mg tablet 0.25 mg PO BEDTIME PRN anxiety #10 06/17/22 tabs duloxetine 60 mg capsule,delayed 60 mg PO DAILY 90 days #90 caps 06/17/22 release (Cymbalta) hydrochlorothiazide 25 mg tablet 25 mg PO DAILY 30 days #30 tabs 06/17/22 lisinopril 40 mg tablet 40 mg PO DAILY #90 tabs 06/17/22 meloxicam 15 mg tablet 15 mg PO DAILY #90 tabs 06/17/22 metoprolol tartrate 50 mg tablet 75 mg PO BID 90 days #270 tabs 06/17/22 omeprazole 20 mg capsule,delayed 20 mg PO DAILY 90 days #90 caps 06/17/22 release pregabalin 50 mg capsule (Lyrica) 50 mg PO BID 30 days #60 caps 06/17/22 semaglutide 0.25 mg or 0.5 mg (2 0.25 mg (0.2 mL) subcut QWEEK #1.5 06/17/22 mg/1.5 mL) subcutaneous pen mL injector dicyclomine 10 mg capsule 10 mg PO QID PRN abdominal 08/26/22 discomfort #14 caps famotidine 20 mg tablet 20 mg PO BID #20 tabs 08/26/22 ondansetron 4 mg disintegrating 4 mg PO Q8H PRN nausea and 08/26/22 tablet vomiting #10 tabs Allergies Allergy/AdvReac Type Severity Reaction Status Date / Time No Known Allergies Allergy Verified 08/26/22 09:02 [facility] Past Medical History Medical History Annual physical exam Anxiety Arthritis Bile salt-induced diarrhea Bipolar 2 disorder BMI 37.0-37.9, adult BMI 38.0-38.9,adult Carpal tunnel syndrome Cataract Diverticulosis Fibromyalgia GERD (gastroesophageal reflux disease) Hypercholesterolemia Hypertension Insomnia Knee pain, bilateral Left leg pain Obesity Pre-op evaluation Preop exam for internal medicine SOB (shortness of breath) Urge incontinence Vitamin D deficiency Surgical History H/O ovarian cystectomy History of appendectomy History of carpal tunnel release History of cataract surgery History of cholecystectomy History of colonoscopy History of discectomy History of tonsillectomy Family History Family History Father Hypertension CVD (cardiovascular disease) Cancer Mother Hypertension Diabetes Maternal Aunt Colon cancer Father No problems noted. Sister Diabetes Sister Diabetes Sister Diabetes Brother Diabetes Son No problems noted. Son No problems noted. Social History Social History Housing: House Alcohol intake: current Alcohol intake frequency: holidays/special occasions only Patient Tobacco Use Status: Never used Tobacco e-Cigarette/Vaping Use: Never Used Second Hand Smoke Exposure: No Advance Directives: No Advance Directives Information Provided: Yes Current occupational status: employed Cognitive needs: No Hearing needs: No Vision needs: No Physical Exam ED Vital Signs: Vital Signs - 24 hr 08/26/22 09:02 08/26/22 10:33 08/26/22 12:24 Temperature 98 F Pulse Rate 68 62 72 Respiratory Rate 18 20 20 Blood Pressure 123/59 L 102/55 L 142/54 H Pulse Oximetry 98 100 100 Oxygen Delivery Method Room Air Room Air 08/26/22 14:02 Temperature Pulse Rate 64 Respiratory Rate 14 Blood Pressure 108/73 Pulse Oximetry 98 Oxygen Delivery Method Room Air BMI result Body Mass Index 38.7 GEN: Well developed, no acute distress, alert, oriented HEENT: Normocephalic, atraumatic, normal external ears, nose appears normal, no oropharyngeal edema or exudates Eyes: Normal to appearance Neck: Supple, no lymphadenopathy Respiratory: Talks in complete sentences, no respiratory distress, clear to auscultation bilaterally Cardiovascular: Regular rate and rhythm, no murmurs rubs or gallops Abdomen: Soft, right-sided abdominal tenderness, nondistended, no guarding, no rebound Back: No CVA tenderness Extremities: No clubbing cyanosis or edema Neurologic: No focal neurologic deficits, cranial nerves 2-12 intact, strength is 5/5 bilaterally, gait normal Skin: No rash Course Course Course Narrative: 67-year-old female presents with abdominal pain and diarrhea. She has not been on any recent antibiotics. She has no significant risk factors for C diff colitis. She had no travel to suggest parasitic etiology. Possibilities include gastroenteritis, malabsorption, IBD, IBS, motility. Patient also reports decreased oral intake so there could be a component dehydration as well. Patient will get IV fluids, analgesics, antiemetics, CT scan the abdomen given the tenderness on exam. Reevaluation(s) Reevaluation #1: Discussed all results with the patient. She understands the finding on her drain on gland. Will provide her with a little bit of analgesia prior to being discharged. We discussed a 2 day plan and recommendations for follow-up and when to return to the emergency department. All questions were addressed and answered. Time: 14:10 Medications Administered Discontinued Medications Generic Name Dose Route Start Last Admin Trade Name Freq PRN Reason Stop Dose Admin Sodium Chloride 1,000 mls @ 999 mls/hr 08/26/22 10:00 08/26/22 12:49 Ns IV 08/26/22 11:00 Infused .Q1H1M ELYSE Infusion Iohexol 100 ml 08/26/22 12:21 08/26/22 12:22 Iohexol 350 Mg/Ml 100 Ml Infus..Btl IV 08/26/22 12:22 85 ml ONCE ONE Administration Medical Decision Making Medical Decision Making [facility] Narrative: 67-year-old female presents with abdominal pain and diarrhea. Examination revealed some right-sided tenderness without rebound or guarding. Patient has no risk factors for C diff. A broad differential diagnosis currently being considered. Will also rule out dehydration including electrolyte abnormalities. Will provide patient with analgesia, antiemetics, IV fluids and re-evaluate patient Differential Diagnosis Differential Diagnoses: The differential diagnosis associated with the presentation includes (Chronic diarrhea, acute diarrhea, malabsorption, IBD, IBS, colitis, diverticulitis, malabsorption, bacterial overgrowth) Abdominal pain, diarrhea Admission/Observation Consideration of admission/observation: Escalation of care including admission/observation considered Lab Data [facility] Lab Attestation statement: I reviewed the patient's lab results. 08/26/22 10:23 08/26/22 11:24 Labs: Lab Results 08/26/22 08/26/22 08/26/22 Range/Units 10:23 10:23 10:23 WBC 7.2 (4.8-10.8) X10*3/uL RBC 4.89 (4.20-5.50) X10*6/uL Hgb 14.6 (12.0-16.0) g/dl Hct 43.1 (37.0-47.0) % MCV 88.1 (80.0-98.0) fL MCH 29.9 (27.0-33.0) pg MCHC 33.9 (31.0-35.0) g/dl RDW 13.7 (11.0-16.0) % Plt Count 195 (160-400) X10*3/uL MPV 11.8 (9.4-12.3) fL Immature Gran % (Auto) 0.3 (0.0-0.4) % Neut % (Auto) 58.3 (45-73) % Lymph % (Auto) 29.8 (20-40) % Bleckley % (Auto) 8.6 (2-11) % Eos % (Auto) 2.3 (0-4) % Baso % (Auto) 0.7 (0-2) % Lymph # (Auto) 2.2 (1.2-4.9) X10*3/uL Bleck[place] # (Auto) 0.6 (0.1-1.2) X10*3/uL Eos # (Auto) 0.2 (0.0-0.4) X10*3/uL Baso # (Auto) 0.1 (0.0-0.2) X10*3/uL Abs Immat Gran (auto) 0.02 (0.00-0.03) X10*3/uL Absolute Neuts (auto) 4.2 (2.0-8.3) x10*3/uL Absolute Nucleated RBC 0.000 (0.0-0.012) X10*3/uL Nucleated RBC % (auto) 0.0 (0.0-0.2) /100WBC Sodium (135-145) mmol/L Potassium (3.3-5.1) mmol/L Chloride (96-108) mmol/L Carbon Dioxide (22-29) mmol/L Anion Gap (12-20) BUN (9-16) mg/dL Creatinine (0.5-1.4) mg/dL Estim Creat Clear Calc Estimated GFR POC Glucose (60-115) mg/dL Random Glucose (60-115) mg/dL Calcium (8.4-10.2) mg/dL Total Bilirubin (0.0-1.0) mg/dL Direct Bilirubin (0.0-0.5) mg/dL AST (5-31) U/L ALT (0-31) U/L Alkaline Phosphatase (39-117) U/L Troponin I High Sens < 3.5 (<3.5-17.0) ng/L Total Protein (6.5-8.0) g/dL Albumin (3.5-5.0) g/dL Lipase (8-78) U/L Urine Color Yellow Urine Appearance Cloudy Urine pH 6.0 (5.0-9.0) Ur Specific Nikolski >= 1.030 H (1.005-1.025) Urine Protein Negative (Neg-Trace) mg/dL Urine Glucose (UA) Negative (Negative) mg/dL Urine Ketones Negative (Negative) mg/dL Urine Blood Negative (Negative) Urine Nitrite Negative (Negative) Ur Leukocyte Esterase Small (1+) H (Negative) Urine RBC 0-2 (0-2) /HPF Urine WBC 0-5 (0-5) /HPF Ur Squamous Epith Cells 3-5 (0-2) /HPF Other Crystals Present Urine Bacteria None Seen (None Seen) Hyaline Casts 0-2 (0-2) /LPF 08/26/22 08/26/22 08/26/22 Range/Units 10:34 11:24 12:27 WBC (4.8-10.8) X10*3/uL RBC (4.20-5.50) X10*6/uL Hgb (12.0-16.0) g/dl Hct (37.0-47.0) % MCV (80.0-98.0) fL MCH (27.0-33.0) pg MCHC (31.0-35.0) g/dl RDW (11.0-16.0) % Plt Count (160-400) X10*3/uL MPV (9.4-12.3) fL Immature Gran % (Auto) (0.0-0.4) % Neut % (Auto) (45-73) % Lymph % (Auto) (20-40) % Bleckley % (Auto) (2-11) % Eos % (Auto) (0-4) % Baso % (Auto) (0-2) % Lymph # (Auto) (1.2-4.9) X10*3/uL Bleck[place] # (Auto) (0.1-1.2) X10*3/uL Eos # (Auto) (0.0-0.4) X10*3/uL Baso # (Auto) (0.0-0.2) X10*3/uL Abs Immat Gran (auto) (0.00-0.03) X10*3/uL Absolute Neuts (auto) (2.0-8.3) x10*3/uL Absolute Nucleated RBC (0.0-0.012) X10*3/uL Nucleated RBC % (auto) (0.0-0.2) /100WBC Sodium 140 (135-145) mmol/L Potassium 4.0 (3.3-5.1) mmol/L Chloride 111 H (96-108) mmol/L Carbon Dioxide 24 (22-29) mmol/L Anion Gap 9 L (12-20) BUN 31 H (9-16) mg/dL Creatinine 1.18 (0.5-1.4) mg/dL Estim Creat Clear Calc 49.4 Estimated GFR 46 POC Glucose 143 H 112 (60-115) mg/dL Random Glucose 126 H (60-115) mg/dL Calcium 8.7 (8.4-10.2) mg/dL Total Bilirubin 0.8 (0.0-1.0) mg/dL Direct Bilirubin 0.2 (0.0-0.5) mg/dL AST 15 (5-31) U/L ALT 21 (0-31) U/L Alkaline Phosphatase 73 (39-117) U/L Troponin I High Sens (<3.5-17.0) ng/L Total Protein 6.0 L (6.5-8.0) g/dL Albumin 3.6 (3.5-5.0) g/dL Lipase 12 (8-78) U/L Urine Color Urine Appearance Urine pH (5.0-9.0) Ur Specific Nikolski (1.005-1.025) Urine Protein (Neg-Trace) mg/dL Urine Glucose (UA) (Negative) mg/dL Urine Ketones (Negative) mg/dL Urine Blood (Negative) Urine Nitrite (Negative) Ur Leukocyte Esterase (Negative) Urine RBC (0-2) /HPF Urine WBC (0-5) /HPF Ur Squamous Epith Cells (0-2) /HPF Other Crystals Urine Bacteria (None Seen) Hyaline Casts (0-2) /LPF Independent Interpretation I performed an independent interpretation of an: EKG (Sinus bradycardia heart rate 57, normal intervals, no acute ST elevations depressions) and CT Scan (No acute disease process) Radiology Impression Discussion of test interpretation with radiology: I have reviewed the radiologist's reading. ( CT/CT abdomen pelvis w IV con IMPRESSION: 1. No acute findings in the abdomen or pelvis. No inflammatory changes. 2. Left adrenal gland myolipoma. The overall appearance is unchanged from prior study. There is a demarcated rim of hypoattenuating tissue surrounding the rounded fa) Tests considered The following testing was considered but not selected: Ultrasound abdomen Prescription Management I considered prescription management with: Pain Medication Chronic Conditions Patient?s care impacted by: Diabetes Discharge Plan Discharge Clinical Impression: Abdominal pain, Diarrhea, Lesion of adrenal gland Patient Disposition: Home, Self-Care Instructions: Acute Diarrhea (ED), Abdominal Pain (ED) Additional Instructions: For your pain, I am recommending the following regimen Famotidine 20 mg twice daily Dicyclomine 10 mg 3 times a day as needed for abdominal discomfort bloating Judicious use of Imodium 2 mg daily as needed for diarrhea Tylenol and ibuprofen as she would take [id number]. Ondansetron 4 mg dissolvable tablet every 8 hours as needed for nausea and vomiting Keep herself appropriately hydrated You may add fiber supplementation for diarrhea. Other stool binders could include rice and bananas. You may wish to reduce your metformin to 500 mg twice a day from 1000 mg twice a day. Sometimes metformin can cause abdominal discomfort and diarrhea. Her blood sugars may run a little bit higher. In the short term this should not be a significant issue. If her blood sugars are persistently above 300, please contact your primary care provider Follow-up with your primary care provider within the next few days. Return to the emergency department for more significant symptoms. Prescriptions: New famotidine 20 mg tablet 20 mg PO BID Qty: 20 0RF ondansetron 4 mg tablet,disintegrating 4 mg PO Q8H PRN (Reason: nausea and vomiting) Qty: 10 0RF dicyclomine 10 mg capsule 10 mg PO QID PRN (Reason: abdominal discomfort) Qty: 14 0RF No Action melatonin 10 mg capsule 10 mg PO BEDTIME PRN metformin 1,000 mg tablet 1,000 mg PO BID 90 Days Qty: 180 3RF (DME) blood-glucose meter [FreeStyle Lite Meter] Kit See Rx Instructions .ROUTE .MEDSUPPLY Qty: 1 0RF Rx Instructions: As directed (DME) FreeStyle Lite Strips Strip See Rx Instructions .ROUTE .MEDSUPPLY Qty: 100 3RF Rx Instructions: As directed check the BS QD (DME) lancets [FreeStyle Lancets] 28 gauge misc See Rx Instructions .ROUTE .MEDSUPPLY Qty: 100 3RF Rx Instructions: As directed check BS QD diclofenac sodium [Voltaren Arthritis Pain] 1 % gel 4 g topical QID 30 Days Qty: 100 3RF Rx Instructions: apply to single knee, ankle, foot; for foot includes sole/toes/top of foot atorvastatin 10 mg tablet 10 mg PO DAILY 30 Days Qty: 30 3RF Prevalite 4 gram powder in packet 4 g PO BID Qty: 60 2RF Rx Instructions: administer w/meal; avoid other meds within 1hr before or 4-6hr after dose alprazolam 0.25 mg tablet 0.25 mg PO BEDTIME PRN (Reason: anxiety) Qty: 10 0RF duloxetine [Cymbalta] 60 mg capsule,delayed release(DR/EC) 60 mg PO DAILY 90 Days Qty: 90 2RF lisinopril 40 mg tablet 40 mg PO DAILY Qty: 90 3RF meloxicam 15 mg tablet 15 mg PO DAILY Qty: 90 2RF metoprolol tartrate 50 mg tablet 75 mg PO BID 90 Days Qty: 270 2RF omeprazole 20 mg capsule,delayed release(DR/EC) 20 mg PO DAILY 90 Days Qty: 90 3RF pregabalin [Lyrica] 50 mg capsule 50 mg PO BID 30 Days Qty: 60 0RF hydrochlorothiazide 25 mg tablet 25 mg PO DAILY 30 Days Qty: 30 3RF semaglutide 0.25 mg or 0.5 mg(2 mg/1.5 mL) pen injector 0.25 mg subcut QWEEK Qty: 1.5 0RF Rx Instructions: for 4 doses
[2022-08-26 14:02] VITALS: BP 108/73; PULSE 64; RESP 14; O2SAT 98
[2022-08-26] MEDS: Loperamide HCl 2 MG CAPSULE PO (14:20)
[2022-08-26] MEDS: Ketorolac Tromethamine 15 MG/ML VIAL IVPUSH (14:20)
== END 2022-08-26 14:38 | disposition home or self-care (01) ==
PROVIDERS: Emergency Provider Emergency Medicine; PCP Internal Medicine
DX: R10.32 Left lower quadrant pain (principal); R19.7 Diarrhea, unspecified; R07.89 Other chest pain; Z79.899 Other long term (current) drug therapy
CPT/HCPCS: 36415; 74177; 80048; 80076; 81001; 82947; 83690; 84484; 85025; 87086; 93005; 96361; 96374; 99284; J1885; Q9967

== ENCOUNTER 2022-10-15 10:18 | Outpatient (REF) | payer OTHER, SELFPAY ==
[2022-10-15 10:33] LABS: MANUAL DIFF FLAG NO
[2022-10-15 11:37] LABS: Basophils Absolute Auto 0.1 X10*3/uL (0.0-0.2); Basophils Percent Auto 0.8 % (0-2); Eosinophils Absolute Auto 0.2 X10*3/uL (0.0-0.4); Eosinophils Percent Auto 3.6 % (0-4); Hematocrit 42.1 % (37.0-47.0); Hemoglobin 14.1 g/dl (12.0-16.0); Imm Gran Abs Auto 0.04 X10*3/uL (0.00-0.03); Imm Gran Pct Auto 0.7 % (0.0-0.4); Lymphocytes Absolute Auto 1.6 X10*3/uL (1.2-4.9); Lymphocytes Percent Auto 26.7 % (20-40); Mean Corpuscular HGB Conc 33.5 g/dl (31.0-35.0); Mean Corpuscular Hemoglobin 30.1 pg (27.0-33.0); Mean Corpuscular Volume 89.8 fL (80.0-98.0); Mean Platelet Volume 11.8 fL (9.4-12.3); Monocytes Absolute Auto 0.5 X10*3/uL (0.1-1.2); Monocytes Percent Auto 8.2 % (2-11); Neutrophils Absolute Auto 3.7 x10*3/uL (2.0-8.3); Platelet Count 185 X10*3/uL (160-400); Red Blood Count 4.69 X10*6/uL (4.20-5.50); Red Cell Distribution Width 14.1 % (11.0-16.0); White Blood Count 6.1 X10*3/uL (4.8-10.8)
[2022-10-15 11:56] LABS: Creatinine Urine 181.26 mg/dL; Microalbum/Creatinine Ratio Ur 8.8 ug/mg cr
[2022-10-15 12:12] LABS: Alanine Aminotransferase 26 U/L (0-31); Albumin Level 4.2 g/dL (3.5-5.0); Alkaline Phosphatase 85 U/L (39-117); Anion Gap 12 (12-20); Aspartate Amino Transferase 19 U/L (5-31); Bilirubin Total 0.9 mg/dL (0.0-1.0); Blood Urea Nitrogen 22 mg/dL (9-16); Calcium 9.4 mg/dL (8.4-10.2); Carbon Dioxide 22 mmol/L (22-29); Chloride 108 mmol/L (96-108); Cholesterol 231 mg/dL; Estimated Glomerular Filt Rate 52; Glucose Random 158 mg/dL (60-115); HDL Cholesterol 51 mg/dL; LDL Cholesterol Calculated 153 mg/dl; Potassium 4.3 mmol/L (3.3-5.1); Sodium 138 mmol/L (135-145); Total Protein 7.1 g/dL (6.5-8.0); Triglycerides 138 mg/dL
[2022-10-15 12:23] LABS: Folate 12.9 ng/mL (> or = 4.0); Free T4 (Free Thyroxine) 1.02 ng/dL (0.71-1.85); Thyroid Stimulating Hormone 0.77 uIU/mL (0.32-4.0); Vitamin B12 325 pg/mL (200-900)
== END 2022-10-15 10:19 | disposition home or self-care (01) ==
LOC: HO.LAB 10:18
PROVIDERS: PCP Internal Medicine; Visit Provider Internal Medicine
DX: E11.65 Type 2 diabetes mellitus with hyperglycemia (principal); E78.00 Pure hypercholesterolemia, unspecified; E55.9 Vitamin D deficiency, unspecified
CPT/HCPCS: 36415; 80053; 80061; 82043; 82306; 82607; 82746; 84439; 84443; 85025

== ENCOUNTER 2022-12-27 08:52 | Outpatient (REF) | payer OTHER, SELFPAY ==
--- NOTE | ~2022-12-27 | MM_ITS ---
EXAMINATION: MM SCREENING DIGITAL BREAST TOMOSYNTHESIS, BILATERAL CLINICAL INFORMATION: Screening. Asymptomatic. The lifetime risk of breast cancer based on the Tyrer-Cuzick Model is 7.9%. COMPARISON: Mammography: This study is compared with prior exams dating back to 2017. TECHNIQUE: Digital breast tomosynthesis is performed in both the craniocaudal and mediolateral oblique views along with computer-aided detection (CAD). Synthesized 2D images are generated from the tomosynthesis. FINDINGS: The breasts are almost entirely fatty (ACR BI-RADS breast composition Category a). There are no significant masses, abnormal calcifications, or other abnormalities. MM/MM tomosynthesis screening BI IMPRESSION: No mammographic evidence of malignancy. ASSESSMENT: BI-RADS BI-RADS 1 - Negative RECOMMENDATION: Routine annual mammography screening. 1 year F/U This examination should not preclude the clinical evaluation of a suspicious palpable abnormality. This patient's information was entered into a reminder system with a target due date for their next mammogram.
--- NOTE | ~2022-12-27 | MM_ITS ---
EXAMINATION: BONE DENSITOMETRY CLINICAL INDICATION: Age-related osteoporosis without current pathological fracture. COMPARISON: This is the patient's baseline examination. TECHNIQUE: Using a [employer] DXA System (software version: 13.1) manufactured by [employer], dual-energy x-ray absorptiometry was performed of the lumbar spine and left hip. The images are of good technical quality. Summary results are attached. FINDINGS: AP SPINE L1-L2 (excluding L3 and L4): The data of L1-L4 has been changed to exclude the L3 and L4 vertebral bodies, because degenerative sclerosis at these levels may cause overestimation of lumbar spine density. BMD 1.156 g/cm2, Z-score 0.6, T-score -0.1, normal. LEFT FEMUR, NECK: BMD 0.757 g/cm2, Z-score -1.1, T-score -2.0, osteopenia. LEFT FEMUR, TOTAL: BMD 0.805 g/cm2, Z-score -1.0, T-score -1.6, osteopenia. IDENTIFIED RISK FACTORS: Menopause,. HISTORY OF FRACTURE: None listed. MEDICATIONS: Vitamin D. MM/XR DEXA axial skeleton IMPRESSION: 1. DIAGNOSIS: Osteopenia based on the lowest T-score value of -2.0 in the femoral neck applying World Health Organization criteria. 2. 10-YEAR FRACTURE RISK PREDICTION, FRAX: Major osteoporotic fracture (clinical spine, forearm, hip or shoulder) 9.9%. Hip fracture 1.5%. 3. Treatment Recommendations: NOF guidelines recommend consideration for treatment in postmenopausal women and men age 50 and older presenting with the following: -A hip or vertebral (clinical or morphometric) fracture. -T-score less than or equal to -2.5 at the femoral neck or spine after appropriate evaluation to exclude secondary causes. -Low bone mass at the hip or spine and a 10-year fracture probability by FRAX of greater than or equal to 3% for hip fracture or greater than or equal to 20% for major osteoporotic fracture based on the [place] adapted WHO algorithm. 4. Other Recommendations: All treatment decisions require clinical judgment and consideration of individual patient factors, including patient preferences, comorbidities, previous drug use, risk factors not captured in the FRAX model (e.g. frailty, falls, vitamin D deficiency, increased bone turnover, interval significant decline in bone density) and possible under or overestimation of fracture risk by FRAX. Additional medical evaluation for secondary cause of low bone mineral density may be appropriate. FUTURE SCAN RECOMMENDATION: People with diagnosed cases of osteoporosis or at high risk for fracture should have regular bone mineral density tests. For patients eligible for Medicare, routine testing is allowed once every 2 years. The testing frequency can be increased to one year for patients who have rapidly progressing disease, those who are receiving or discontinuing medical therapy to restore bone mass, or have additional risk factors.
== END 2022-12-27 08:53 | disposition home or self-care (01) ==
LOC: HO.MAMMO 08:52
PROVIDERS: PCP Internal Medicine; Visit Provider Internal Medicine
DX: Z12.31 Encounter for screening mammogram for malignant neoplasm of breast (principal); Z13.820 Encounter for screening for osteoporosis; M81.0 Age-related osteoporosis without current pathological fracture; Z78.0 Asymptomatic menopausal state
CPT/HCPCS: 77063; 77067; 77080

== ENCOUNTER → 2022-12-27 10:34 | Outpatient (BNV) | payer OTHER, SELFPAY | PROVIDERS: PCP Internal Medicine; Visit Provider Radiology Diagnostic Radiology | DX: Z12.31 Encounter for screening mammogram for malignant neoplasm of breast (principal); M81.0 Age-related osteoporosis without current pathological fracture | CPT/HCPCS: 77063; 77067; 77080 ==

== ENCOUNTER 2023-02-06 08:26 | Outpatient (AMB) | payer OTHER, SELFPAY ==
[2023-02-06 08:41] VITALS: BP 136/74; PULSE 77; O2SAT 98; BMI 41.0
--- NOTE | 2023-02-06 08:41 | A.OFFPC_ITS ---
Vital Signs 02/06/23 08:41 Height 5 ft 1 in Weight 217 lb BMI 41.0 BP 136/74 Blood Pressure Location Lt brachial Position Sitting Pulse 77 Pulse Source Pulse Oximeter Pulse Oximetry (%) 98 Oxygen Delivery Method Room Air Intake Visit Reasons: 4 month f/u Allergies No Known Allergies Allergy (Verified 02/06/23 08:43) Tobacco use date assessed: 10/16/22 Fall risk assessment: No Falls in past year Last assessed Fall Risk: 02/06/23 Dental Screening Dental Screen Date: 02/06/23 Did you have a dental visit in the last 12 months?: Yes Did you have a dental problem in the last 6 months where you did not have access to dental care?: No Was dental information given to patient?: Patient has dentist HPI 4 month f/u HPI Details 67-year-old morbidly obese female with d iabetes mellitus hypercholesterolemia hypertension GERD last seen in September 2022. Colonoscopy is due, mammograms up-to-date bone density is up-to-date. Patient is here for follow-up [facility] Medical History (Updated 02/06/23 @ 09:06 by Lesly Pinto MD) Age-related osteoporosis without current pathological fracture Knee pain, bilateral Left leg pain Annual physical exam Preop exam for internal medicine Cataract BMI 37.0-37.9, adult Bipolar 2 disorder Arthritis Diverticulosis BMI 38.0-38.9,adult SOB (shortness of breath) Pre-op evaluation Obesity Carpal tunnel syndrome Bile salt-induced diarrhea Hypercholesterolemia Anxiety Hypertension Insomnia Vitamin D deficiency GERD (gastroesophageal reflux disease) Fibromyalgia Urge incontinence Surgical History History of cataract surgery H/O ovarian cystectomy History of colonoscopy History of discectomy History of carpal tunnel release History of tonsillectomy History of cholecystectomy History of appendectomy Family History (Updated 02/06/23 @ 08:44 by Dionne Araujo CMA) Father Hypertension CVD (cardiovascular disease) Cancer Mother Hypertension Diabetes Maternal Aunt Colon cancer Father No problems noted. Sister Diabetes Sister Diabetes Sister Diabetes Brother Diabetes Son No problems noted. Son No problems noted. Social History Housing: House Alcohol intake: current Alcohol intake frequency: holidays/special occasions only Patient Tobacco Use Status: Never used Tobacco e-Cigarette/Vaping Use: Never Used Second Hand Smoke Exposure: No Current occupational status: employed Cognitive needs: No Hearing needs: No Vision needs: No Questionnaire PHQ-9 Over the last 2 weeks, how often have you been bothered by any of the following problems? 1. Little interest or pleasure in doing things: several days 2. Feeling down, depressed, or hopeless: several days 3. Trouble falling or staying asleep, or sleeping too much: not at all 4. Feeling tired or having little energy: not at all 5. Poor appetite or overeating: several days 6. Feeling bad about yourself - or that you are a failure or have let yourself or your family down: not at all 7. Trouble concentrating on things, such as reading the newspaper or watching television: not at all 8. Moving or speaking so slowly that other people could have noticed. Or the opposite - being so fidgety or restless that you have been moving around a lot more than usual: not at all 9. Thoughts that you would be better off or of hurting yourself in some way: not at all Total score: 3 Depression Screening Interpretation: Negative Source: Developed by Drs. Jf Marcelo, Bradley Henning and colleagues, with an educational jada from [employer]. Thrive Questionnaire Date Thrive assessed: 10/16/22 AUDIT C Alcohol Use Questionnaire (AUDIT-C) 1. How often do you have a drink containing alcohol?: Monthly or less 2. How many drinks containing alcohol do you have on a typical day when you are drinking?: 1 or 2 3. How often do you have six or more drinks on one occasion?: Never Total Score: 1 PABLO-7 AMB Questionnaire PABLO-7 Date PABLO - 7 assessed: 10/16/22 Source: Developed by Negar Dooley Kurt Kroenke and colleagues, with an educational jada from [employer]. Physical exam (Primary Care) Vital Signs: Last Vital Signs Pulse 77 02/06/23 08:41 BP 136/74 02/06/23 08:41 Pulse Ox 98 02/06/23 08:41 Oxygen Delivery Method Room Air 02/06/23 08:41 BMI result Body Mass Index 41.0 Tobacco/Smoking Status: Tobacco use Status Tobacco use date assessed 10/16/22 02/06/23 08:41 Patient Tobacco Use Status Never used Tobacco 02/06/23 08:41 e-Cigarette/Vaping Use Never Used 02/06/23 08:41 PHQ-9: PHQ-9 Score PHQ-9: Total score 3 02/06/23 08:55 Depression Screening Interpretation: Negative Thrive Assessment: Date of Thrive Assessment Date Thrive assessed 10/16/22 02/06/23 08:41 Const General: alert; No acute distress Eyes Conjunctivae: conjunctivae normal Resp Auscultation: clear to auscultation bilaterally Cardio Rate: regular rate Rhythm: regular rhythm GI Inspection: Yes normal to inspection Extrem General: Yes normal to inspection and No edema Results AMB Hemoglobin A1c AMB Hemoglobin A1c 7.2 % Last Edit by Dionne Araujo CMA on 02/06/23 08 :56 Results Reviewed Results Reviewed: Laboratory Last Values Hgb A1c (Clinic) 7.2 % (4.0-6.0) H 02/06/23 08:45 Assessment and Plan Assessment & Plan (1) Type 2 diabetes mellitus with hyperglycemia: Comment: [facility] Code(s): E11.65 - Type 2 diabetes mellitus with hyperglycemia Qualifiers: Diabetes mellitus parts counterman insulin use: without parts counterman use Qualified Code(s): E11.65 - Type 2 diabetes mellitus with hyperglycemia Plan: Decrease the amount of carbohydrate intake, pasta, bread, rice and potatoes are all sugar and that is aside from all the sweet stuff, remember that fruits are good but they are Sweet also. Hemoglobin A1c goal of less than 6.5 patient is on metformin a 1000 mg twice a day . (2) Hypertension: Code(s): I10 - Essential (primary) hypertension Qualifiers: Hypertension type: essential hypertension Qualified Code(s): I10 - Essential (primary) hypertension Plan: Continue with blood pressure medication. Decrease salt intake and exercise continue with lisinopril 40 mg once a day hydrochlorothiazide 25 mg once a day (3) Obesity: Code(s): E66.9 - Obesity, unspecified Qualifiers: Obesity type: due to excess calories Obesity classification: adult class 3 (BMI >= 40) Serious obesity comorbidity presence: with serious comorbidity Body mass index: BMI 40.0-44.9 Qualified Code(s): E66.01 - Morbid (severe) obesity due to excess calories; Z68.41 - Body mass index [BMI]40.0- 44.9, adult Plan: Diet and exercise (4) Hypercholesterolemia: Code(s): E78.00 - Pure hypercholesterolemia, unspecified Plan: Avoid fried foods, chicken skin, eggs, butter margarine, pastries and meat. Be it pork or beef they have a lot of cholesterol LDL goal of less than 100 and triglyceride of less than 150 patient has been placed on atorvastatin 20 mg once a day (5) GERD (gastroesophageal reflux disease): Code(s): K21.9 - Gastro-esophageal reflux disease without esophagitis Qualifiers: Esophagitis presence: without esophagitis Qualified Code(s): K21.9 - Gastro-esophageal reflux disease without esophagitis Plan: Avoid the foods that causes that usually spicy foods, tomato products, juices, coffee, soda and foods that your sensitive to. After eating do not lie down, allow 3-4 hours before in lie down. And keep the head of bed above 30 degrees to avoid the acid from going up. (6) Bipolar disorder: Code(s): F31.9 - Bipolar disorder, unspecified Qualifiers: Active/Remission status: currently active Current bipolar episode type: depressed Current episode severity: moderate Qualified Code(s): F31.32 - Bipolar disorder, current episode depressed, moderate Plan: Continue with present medication (7) Colon cancer screening: Code(s): Z12.11 - Encounter for screening for malignant neoplasm of colon Plan: Patient is reminded about colonoscopy (8) Osteopenia: Comment: 12/2022 Code(s): M85.80 - Other specified disorders of bone density and structure, unspecified site Plan: Bone density done and discussed about medications to help with the bones. Orders: Orders AMB Hemoglobin A1c Today Z13.9 - Encounter for screening, unspecified Referrals Psychiatry Referral F31.32 - Bipolar disorder, current episode depressed, moderate Medications: Changed From semaglutide for 4 doses 0.25 mg (0.2 mL) subcut QWEEK 1.5 mL 0RF E11.65 - Type 2 diabetes mellitus with hyperglycemia To semaglutide for 4 doses 0.5 mg (0.4 mL) subcut QWEEK 30 days 2 mL 3RF E11.65 - Type 2 diabetes mellitus with hyperglycemia From atorvastatin 20 mg PO DAILY 30 days 30 tabs 3RF E78.00 - Pure hypercholesterolemia, unspecified To atorvastatin 20 mg PO DAILY 90 days 90 tabs 1RF E78.00 - Pure hypercholesterolemia, unspecified From hydrochlorothiazide 25 mg PO DAILY 30 days 30 tabs 3RF I10 - Essential (primary) hypertension To hydrochlorothiazide 25 mg PO DAILY 90 days 90 tabs 3RF I10 - Essential (primary) hypertension Refilled metformin 1,000 mg PO BID 90 days 180 tabs 3RF E11.65 - Type 2 diabetes mellitus with hyperglycemia metoprolol tartrate 100 mg PO BID 180 tabs 2RF 90 days I10 - Essential (primary) hypertension meloxicam 15 mg PO DAILY 90 tabs 2RF M17.0 - Bilateral primary osteoarthritis of knee lancets (FreeStyle Lancets) As directed check BS QD 100 ea 3RF E11.65 - Type 2 diabetes mellitus with hyperglycemia lisinopril 40 mg PO DAILY 90 tabs 3RF I10 - Essential (primary) hypertension blood-glucose meter (FreeStyle Lite Meter kit) As directed 1 ea 0RF E11.65 - Type 2 diabetes mellitus with hyperglycemia blood sugar diagnostic (FreeStyle Lite Strips) As directed check the BS QD 100 ea 3RF E11.65 - Type 2 diabetes mellitus with hyperglycemia Coding Level of Care Code Est Pt Level 4 (18824) Diagnoses Type 2 diabetes mellitus with hyperglycemia, without long-term current use of insulin E11.65 Diabetes mellitus chcf insulin use: without parts counterman use Essential hypertension I10 Hypertension type: essential hypertension Class 3 severe obesity due to excess calories with serious comorbidity and body mass index (BMI) of 40.0 to 44.9 in adult E66.01; Z68.41 Obesity type: due to excess calories Obesity classification: adult class 3 (BMI >= 40) Serious obesity comorbidity presence: with serious comorbidity Body mass index: BMI 40.0-44.9 Hypercholesterolemia E78.00 Gastroesophageal reflux disease without esophagitis K21.9 Esophagitis presence: without esophagitis Bipolar affective disorder, currently depressed, moderate F31.32 Active/Remission status: currently active Current bipolar episode type: depressed Current episode severity: moderate Colon cancer screening Z12.11 Osteopenia M85.80
== END 2023-02-06 09:23 | disposition home or self-care (01) ==
PROVIDERS: PCP Internal Medicine; Visit Provider Internal Medicine
DX: E11.65 Type 2 diabetes mellitus with hyperglycemia (principal); I10 Essential (primary) hypertension; E66.01 Morbid (severe) obesity due to excess calories; Z68.41 Body mass index [BMI] 40.0-44.9, adult; E78.00 Pure hypercholesterolemia, unspecified; K21.9 Gastro-esophageal reflux disease without esophagitis; F31.32 Bipolar disorder, current episode depressed, moderate; M85.80 Other specified disorders of bone density and structure, unspecified site
CPT/HCPCS: 83036; 99214

== ENCOUNTER 2023-05-21 09:59 | Outpatient (AMB) | payer OTHER, SELFPAY ==
[2023-05-21 10:14] VITALS: BP 142/90; PULSE 68; O2SAT 98; BMI 37.8
--- NOTE | 2023-05-21 10:14 | MHC.PC.OV ---
Vital Signs 05/21/23 10:14 Height 5 ft 1 in Weight 200 lb BMI 37.8 BP 142/90 H Blood Pressure Location Rt brachial Position Sitting Pulse 68 Pulse Source Pulse Oximeter Pulse Oximetry (%) 98 Oxygen Delivery Method Room Air Intake Visit Reasons: 3mon F/U Interactive Account Manager Required: No Accompanied by: Self / Same As Patient Allergies No Known Allergies Allergy (Verified 05/21/23 10:15) Tobacco use date assessed: 10/16/22 Fall risk assessment: No Falls in past year Last assessed Fall Risk: 05/21/23 Dental Screening Dental Screen Date: 05/21/23 Did you have a dental visit in the last 12 months?: Yes Did you have a dental problem in the last 6 months where you did not have access to dental care?: No Was dental information given to patient?: Patient has dentist HPI 3mon F/U HPI Details 68-year-old obese female with diabetes mellitus hypertension hypercholesterolemia GERD bipolar disorder coming in for follow-up. Last seen in January 2023. Patient's colonoscopy is due, mammogram is up-to-date bone density is up-to-date. [facility] Medical History (Updated 05/21/23 @ 10:46 by Lesly Pinto MD) Age-related osteoporosis without current pathological fracture Knee pain, bilateral Left leg pain Annual physical exam Preop exam for internal medicine Cataract BMI 37.0-37.9, adult Bipolar 2 disorder Arthritis Diverticulosis BMI 38.0-38.9,adult SOB (shortness of breath) Pre-op evaluation Obesity Carpal tunnel syndrome Bile salt-induced diarrhea Hypercholesterolemia Anxiety Hypertension Insomnia Vitamin D deficiency GERD (gastroesophageal reflux disease) Fibromyalgia Urge incontinence Surgical History History of cataract surgery H/O ovarian cystectomy History of colonoscopy History of discectomy History of carpal tunnel release History of tonsillectomy History of cholecystectomy History of appendectomy Family History Father Hypertension CVD (cardiovascular disease) Cancer Mother Hypertension Diabetes Maternal Aunt Colon cancer Father No problems noted. Sister Diabetes Sister Diabetes Sister Diabetes Brother Diabetes Son No problems noted. Son No problems noted. Social History Housing: House Alcohol intake: current Alcohol intake frequency: holidays/special occasions only Patient Tobacco Use Status: Never used Tobacco e-Cigarette/Vaping Use: Never Used Second Hand Smoke Exposure: No Current occupational status: employed Cognitive needs: No Hearing needs: No Vision needs: No Questionnaire Thrive Questionnaire Date Thrive assessed: 10/16/22 PABLO-7 AMB Questionnaire PABLO-7 Date PABLO - 7 assessed: 10/16/22 Source: Developed by Drs. Jf Marcelo, Negar Lundy, Bradley Garcia and colleagues, with an educational jada from [employer]. Physical exam (Primary Care) Vital Signs: Last Vital Signs Pulse 68 05/21/23 10:14 BP 142/90 H 05/21/23 10:14 Pulse Ox 98 05/21/23 10:14 Oxygen Delivery Method Room Air 05/21/23 10:14 BMI result Body Mass Index 37.8 Tobacco/Smoking Status: Tobacco use Status Tobacco use date assessed 10/16/22 05/21/23 10:15 Patient Tobacco Use Status Never used Tobacco 05/21/23 10:15 e-Cigarette/Vaping Use Never Used 05/21/23 10:15 Thrive Assessment: Date of Thrive Assessment Date Thrive assessed 10/16/22 05/21/23 10:15 Const General: alert; No acute distress Eyes Conjunctivae: conjunctivae normal Resp Auscultation: clear to auscultation bilaterally Cardio Rate: regular rate Rhythm: regular rhythm GI Inspection: Yes normal to inspection Extrem General: Yes normal to inspection and No edema Results AMB Hemoglobin A1c AMB Hemoglobin A1c 6.6 % Last Edit by Janneth Pierce on 05/21/23 10:32 Results Reviewed Results Reviewed: Laboratory Last Values Hgb A1c (Clinic) 6.6 % (4.0-6.0) H 05/21/23 10:15 Assessment and Plan Assessment & Plan (1) Colon cancer screening: Code(s): Z12.11 - Encounter for screening for malignant neoplasm of colon Plan: Reminded patient (2) Type 2 diabetes mellitus with hyperglycemia: Comment: [facility] Code(s): E11.65 - Type 2 diabetes mellitus with hyperglycemia Qualifiers: Diabetes mellitus technician terminal and repeater insulin use: without technician terminal and repeater use Qualified Code(s): E11.65 - Type 2 diabetes mellitus with hyperglycemia Plan: Decrease the amount of carbohydrate intake, pasta, bread, rice and potatoes are all sugar and that is aside from all the sweet stuff, remember that fruits are good but they are Sweet also. Hemoglobin A1c goal of less than 7.0 patient on metformin a 1000 mg twice a day and semaglutide (3) Obesity: Code(s): E66.9 - Obesity, unspecified Qualifiers: Obesity type: due to excess calories Obesity classification: adult class 3 (BMI >= 40) Serious obesity comorbidity presence: with serious comorbidity Body mass index: BMI 40.0-44.9 Qualified Code(s): E66.01 - Morbid (severe) obesity due to excess calories; Z68.41 - Body mass index [BMI]40.0-44.9, adult Plan: Diet and exercise noted weight loss! (4) Hypercholesterolemia: Code(s): E78.00 - Pure hypercholesterolemia, unspecified Plan: Avoid fried foods, chicken skin, eggs, butter margarine, pastries and meat. Be it pork or beef they have a lot of cholesterol LDL goal of less than 100 and triglyceride of less than 150 patient is on atorvastatin 20 mg once a day (5) Hypertension: Code(s): I10 - Essential (primary) hypertension Qualifiers: Hypertension type: essential hypertension Qualified Code(s): I10 - Essential (primary) hypertension Plan: Continue with blood pressure medication. Decrease salt intake and exercise continue with metoprolol 100 mg twice a day lisinopril 40 mg once a day hydrochlorothiazide 25 mg once a day (6) GERD (gastroesophageal reflux disease): Code(s): K21.9 - Gastro-esophageal reflux disease without esophagitis Qualifiers: Esophagitis presence: without esophagitis Qualified Code(s): K21.9 - Gastro-esophageal reflux disease without esophagitis Plan: Avoid the foods that causes that usually spicy foods, tomato products, juices, coffee, soda and foods that your sensitive to. After eating do not lie down, allow 3-4 hours before in lie down. And keep the head of bed above 30 degrees to avoid the acid from going up. (7) Osteoarthritis, knee: Code(s): M17.9 - Osteoarthritis of knee, unspecified Orders: Orders AMB Hemoglobin A1c Today Z13.9 - Encounter for screening, unspecified Referrals Orthopedics Referral M17.9 - Osteoarthritis of knee, unspecified Medications: New amlodipine 2.5 mg PO DAILY 30 tabs 4RF I10 - Essential (primary) hypertension Refilled hydrochlorothiazide 25 mg PO DAILY 90 tabs 3RF 90 days I10 - Essential (primary) hypertension lisinopril 40 mg PO DAILY 90 tabs 3RF I10 - Essential (primary) hypertension Coding Level of Care Code Est Pt Level 4 (02096) Diagnoses Colon cancer screening Z12.11 Type 2 diabetes mellitus with hyperglycemia, without long-term current use of insulin E11.65 Diabetes mellitus technician terminal and repeater insulin use: without technician terminal and repeater use Class 3 severe obesity due to excess calories with serious comorbidity and body mass index (BMI) of 40.0 to 44.9 in adult E66.01; Z68.41 Obesity type: due to excess calories Obesity classification: adult class 3 (BMI >= 40) Serious obesity comorbidity presence: with serious comorbidity Body mass index: BMI 40.0-44.9 Hypercholesterolemia E78.00 Essential hypertension I10 Hypertension type: essential hypertension Gastroesophageal reflux disease without esophagitis K21.9 Esophagitis presence: without esophagitis Osteoarthritis, knee M17.9
== END 2023-05-21 10:50 | disposition home or self-care (01) ==
PROVIDERS: PCP Internal Medicine; Visit Provider Internal Medicine
DX: E11.65 Type 2 diabetes mellitus with hyperglycemia (principal); E66.01 Morbid (severe) obesity due to excess calories; Z68.41 Body mass index [BMI] 40.0-44.9, adult; E78.00 Pure hypercholesterolemia, unspecified; I10 Essential (primary) hypertension; K21.9 Gastro-esophageal reflux disease without esophagitis; M17.9 Osteoarthritis of knee, unspecified
CPT/HCPCS: 83036; 99214

== ENCOUNTER 2023-06-02 08:15 | Outpatient (REF) | payer OTHER, SELFPAY ==
--- NOTE | ~2023-06-02 | XR_ITS ---
EXAMINATION: XR KNEE AP STANDING XR RIGHT KNEE XR LEFT KNEE CLINICAL INFORMATION: Pain COMPARISON: Right and left knee 09/10/2021 TECHNIQUE: AP bilateral standing view of the knees was obtained. Lateral and sunrise views of both knees were obtained. FINDINGS: RIGHT KNEE: There is marked narrowing of the medial and patellofemoral joint compartment of the right knee. There is slight medial subluxation of the medial femoral condyle with respect to the tibial plateau. Tricompartment marginal osteophytes. No fracture or joint effusion. Quadriceps enthesophyte is noted. LEFT KNEE: There is marked narrowing of the medial joint compartment with [id number] appearance. There is also marked narrowing of the patellofemoral joint compartment. There is tricompartment marginal osteophytes. There is mild to moderate subluxation of the medial femoral condyle with respect to the tibial plateau. No evidence of fracture. No joint effusion. XR/XR knee standing BI IMPRESSION: 1. Bilateral marked osteoarthritis, left greater than right. 2. No acute bony abnormality.
--- NOTE | ~2023-06-02 | XR_ITS ---
EXAMINATION: XR KNEE AP STANDING XR RIGHT KNEE XR LEFT KNEE CLINICAL INFORMATION: Pain COMPARISON: Right and left knee 09/10/2021 TECHNIQUE: AP bilateral standing view of the knees was obtained. Lateral and sunrise views of both knees were obtained. FINDINGS: RIGHT KNEE: There is marked narrowing of the medial and patellofemoral joint compartment of the right knee. There is slight medial subluxation of the medial femoral condyle with respect to the tibial plateau. Tricompartment marginal osteophytes. No fracture or joint effusion. Quadriceps enthesophyte is noted. LEFT KNEE: There is marked narrowing of the medial joint compartment with [id number] appearance. There is also marked narrowing of the patellofemoral joint compartment. There is tricompartment marginal osteophytes. There is mild to moderate subluxation of the medial femoral condyle with respect to the tibial plateau. No evidence of fracture. No joint effusion. XR/XR knee RT 3V IMPRESSION: 1. Bilateral marked osteoarthritis, left greater than right. 2. No acute bony abnormality.
--- NOTE | ~2023-06-02 | XR_ITS ---
EXAMINATION: XR KNEE AP STANDING XR RIGHT KNEE XR LEFT KNEE CLINICAL INFORMATION: Pain COMPARISON: Right and left knee 09/10/2021 TECHNIQUE: AP bilateral standing view of the knees was obtained. Lateral and sunrise views of both knees were obtained. FINDINGS: RIGHT KNEE: There is marked narrowing of the medial and patellofemoral joint compartment of the right knee. There is slight medial subluxation of the medial femoral condyle with respect to the tibial plateau. Tricompartment marginal osteophytes. No fracture or joint effusion. Quadriceps enthesophyte is noted. LEFT KNEE: There is marked narrowing of the medial joint compartment with [id number] appearance. There is also marked narrowing of the patellofemoral joint compartment. There is tricompartment marginal osteophytes. There is mild to moderate subluxation of the medial femoral condyle with respect to the tibial plateau. No evidence of fracture. No joint effusion. XR/XR knee LT 3V IMPRESSION: 1. Bilateral marked osteoarthritis, left greater than right. 2. No acute bony abnormality.
== END 2023-06-02 08:16 | disposition home or self-care (01) ==
LOC: HO.HOSX 08:15
PROVIDERS: Visit Provider Orthopaedic Surgery
DX: M17.0 Bilateral primary osteoarthritis of knee (principal)
CPT/HCPCS: 73560; 73562; 73565

== ENCOUNTER 2023-06-02 10:14 | Outpatient (AMB) | payer OTHER, SELFPAY ==
[2023-06-02 10:19] VITALS: BMI 34.3
--- NOTE | 2023-06-02 10:19 | MHC.OFFVIS ---
Intake Vital Signs 06/02/23 10:19 Height 5 ft 4 in Weight 200 lb BMI 34.3 Intake Visit Reasons: New Pt - Left Knee Pain Intake Note: Rylee is a 68 year old female who presents today as a new patient with complaints of left knee pain. Patient reports tripping over a rug and falling a year ago and feels like her discomfort has gotten worse. Allergies No Known Allergies Allergy (Verified 06/02/23 10:30) HPI New Pt - Left Knee Pain HPI Details Rylee is a 68 year old Diabetic woman who presents with complaints of left knee pain She has pain with daily activity, which began after a fall ~1 year ago She currently takes meloxicam & Lyrica for pain relief She has had mild-moderate pain off and on for years but over the past 6 months she has been unable to ambulate without pain. She uses a can and limps [facility] Medical History (Updated 05/21/23 @ 10:46 by Lesly Pinto MD) Age-related osteoporosis without current pathological fracture Knee pain, bilateral Left leg pain Annual physical exam Preop exam for internal medicine Cataract BMI 37.0-37.9, adult Bipolar 2 disorder Arthritis Diverticulosis BMI 38.0-38.9,adult SOB (shortness of breath) Pre-op evaluation Obesity Carpal tunnel syndrome Bile salt-induced diarrhea Hypercholesterolemia Anxiety Hypertension Insomnia Vitamin D deficiency GERD (gastroesophageal reflux disease) Fibromyalgia Urge incontinence Surgical History History of cataract surgery H/O ovarian cystectomy History of colonoscopy History of discectomy History of carpal tunnel release History of tonsillectomy History of cholecystectomy History of appendectomy Family History Father Hypertension CVD (cardiovascular disease) Cancer Mother Hypertension Diabetes Maternal Aunt Colon cancer Father No problems noted. Sister Diabetes Sister Diabetes Sister Diabetes Brother Diabetes Son No problems noted. Son No problems noted. Social History Housing: House Alcohol intake: current Alcohol intake frequency: holidays/special occasions only Patient Tobacco Use Status: Never used Tobacco e-Cigarette/Vaping Use: Never Used Second Hand Smoke Exposure: No Current occupational status: employed Cognitive needs: No Hearing needs: No Vision needs: No Review of Systems Const All systems reviewed & are unremarkable except as noted in HPI and below Physical Exam Vital Signs: BMI result Body Mass Index 34.3 Const General: no acute distress, alert and awake Orientation/consciousness: patient oriented x3 HEENT Head: Yes normocephalic and Yes atraumatic Eyes EOM: EOMs intact bilaterally Resp Effort & Inspection: normal respiratory effort and able to speak in complete sentences Cardio Jugular venous distension: no JVD Skin General skin exam: turgor normal Rashes: no rashes Neuro General: patient oriented x3 Extrem Other: Varus thrust with gait 1+ varus instability TTP medial compartment 10-120 deg motion Psych Appearance: grossly normal Affect: normal affect Attitude: cooperative Results Reviewed Results Reviewed: I personally reviewed relevant radiographs. Severe varus pattern left knee OA with tibial subluxation Assessment & Plan Assessment & Plan (1) Osteoarthritis, knee: Code(s): M17.9 - Osteoarthritis of knee, unspecified Plan: Left knee arthritis that is severe. She has varus instability and can only walk for a few minutes. I recommend TKA. She is diabetic and takes Ozempic. She has been having diarrhea and foul breath and is getting a colonoscopy with an upper GI soon. She will need to be cleared for her surgery. Her Hgb A1c is < 7. I had a long discussion with her. I discussed the risks benefits and alternatives including but not limited to the risk of pain, infection, stiffness, aseptic loosening as well as the need for further surgery as well as potential medical complications such as blood clots, pulmonary embolism and cardiac complications. Orders: Orders XR knee standing BI Today M25.569 - Pain in unspecified knee XR knee RT 2V Today M25.569 - Pain in unspecified knee XR knee LT 2V Today M25.569 - Pain in unspecified knee Coding Level of Care Code New Pt Level 4 (32106) Diagnoses Osteoarthritis, knee M17.9
== END 2023-06-02 11:19 | disposition home or self-care (01) ==
PROVIDERS: PCP Internal Medicine; Visit Provider Orthopaedic Surgery
DX: M17.12 Unilateral primary osteoarthritis, left knee (principal)
CPT/HCPCS: 99204

== ENCOUNTER 2023-06-27 09:55 | Outpatient (REF) | payer OTHER, SELFPAY ==
[2023-06-27 10:55] LABS: Estimated Average Glucose 131 mg/dL; Hemoglobin A1c % 6.2 % (<6.0)
[2023-06-27 11:25] LABS: Alanine Aminotransferase 23 U/L (0-31); Alkaline Phosphatase 83 U/L (39-117); Anion Gap 15 (12-20); Aspartate Amino Transferase 16 U/L (5-31); Bilirubin Total 0.6 mg/dL (0.0-1.0); Blood Urea Nitrogen 26 mg/dL (9-16); Calcium 9.6 mg/dL (8.4-10.2); Carbon Dioxide 22 mmol/L (22-29); Chloride 104 mmol/L (96-108); Cholesterol 179 mg/dL (<200); Estimated Glomerular Filt Rate 44; Glucose Random 149 mg/dL (60-115); HDL Cholesterol 50 mg/dL (>40); LDL Cholesterol Calculated 95 mg/dL (<100); Potassium 4.3 mmol/L (3.3-5.1); Sodium 137 mmol/L (135-145); Total Protein 7.3 g/dL (6.5-8.0); Triglycerides 170 mg/dL (<150)
[2023-06-27 12:42] LABS: Creatinine Urine 247.01 mg/dL
== END 2023-06-27 09:56 | disposition home or self-care (01) ==
LOC: HO.LAB 09:55
PROVIDERS: PCP Internal Medicine; Visit Provider Internal Medicine
DX: E11.65 Type 2 diabetes mellitus with hyperglycemia (principal); E78.00 Pure hypercholesterolemia, unspecified
CPT/HCPCS: 36415; 80053; 80061; 82570; 83036

== ENCOUNTER 2023-06-30 08:49 | Outpatient (AMB) | payer OTHER, SELFPAY ==
[2023-06-30 08:56] VITALS: BP 132/72; PULSE 108; O2SAT 98; BMI 37.0
--- NOTE | 2023-06-30 08:56 | MHC.PC.OV ---
Vital Signs 06/30/23 08:56 Height 5 ft 1 in Weight 196 lb BMI 37.0 BP 132/72 Blood Pressure Location Lt brachial Position Sitting Pulse 108 H Pulse Source Pulse Oximeter Pulse Oximetry (%) 98 Oxygen Delivery Method Room Air Intake Visit Reasons: PE, Pre-op Clearance L Knee Intake Note: Having surgery with Dr severino next month on left knee Allergies No Known Allergies Allergy (Verified 06/30/23 08:56) Medication List - Last Reconciled 06/30/23 by Lesly Pinto MD alprazolam 0.25 mg PO BEDTIME PRN amlodipine 2.5 mg PO DAILY atorvastatin 20 mg PO DAILY 90 days blood sugar diagnostic (FreeStyle Lite Strips) As directed check the BS QD blood-glucose meter (FreeStyle Lite Meter kit) As directed diclofenac sodium 1% (Voltaren Arthritis Pain) 4 grams topical QID 30 days duloxetine (Cymbalta) 60 mg PO DAILY 90 days famotidine 20 mg PO BID hydrochlorothiazide 25 mg PO DAILY 90 days lancets (FreeStyle Lancets) As directed check BS QD lisinopril 40 mg PO DAILY melatonin 10 mg PO BEDTIME PRN meloxicam 15 mg PO DAILY metformin 500 mg PO BID metoprolol tartrate 100 mg PO BID 90 days mirtazapine 7.5 mg PO BEDTIME omeprazole 20 mg PO DAILY 90 days pregabalin (Lyrica) 50 mg PO BID 30 days semaglutide 0.5 mg (0.374 mL) subcut QWEEK 30 days Tobacco use date assessed: 06/30/23 Fall risk assessment: No Falls in past year Last assessed Fall Risk: 06/30/23 Dental Screening Dental Screen Date: 06/30/23 Did you have a dental visit in the last 12 months?: Yes Did you have a dental problem in the last 6 months where you did not have access to dental care?: No Was dental information given to patient?: Patient has dentist HPI PE HPI Details 68-year-old morbidly obese female with diabetes mellitus hypertension hypercholesterolemia GERD knee osteoarthritis last seen in April 2023. Patient's colonoscopy is due, mammogram is up-to-date bone density is up-to-date. June 02 patient was seen by the Orthopedics diagnosis of severe left arthritis on the knee advise total knee replacement/arthroplasty. diarrhea - discussed about metformin and advised decreased to 500 mg BID [facility] Medical History (Updated 06/30/23 @ 09:04 by Lesly Pinto MD) Preop exam for internal medicine Age-related osteoporosis without current pathological fracture Knee pain, bilateral Left leg pain Annual physical exam Cataract BMI 37.0-37.9, adult Bipolar 2 disorder Arthritis Diverticulosis BMI 38.0-38.9,adult SOB (shortness of breath) Pre-op evaluation Obesity Carpal tunnel syndrome Bile salt-induced diarrhea Hypercholesterolemia Anxiety Hypertension Insomnia Vitamin D deficiency GERD (gastroesophageal reflux disease) Fibromyalgia Urge incontinence Surgical History History of cataract surgery H/O ovarian cystectomy History of colonoscopy History of discectomy History of carpal tunnel release History of tonsillectomy History of cholecystectomy History of appendectomy Family History Father Hypertension CVD (cardiovascular disease) Cancer Mother Hypertension Diabetes Maternal Aunt Colon cancer Father No problems noted. Sister Diabetes Sister Diabetes Sister Diabetes Brother Diabetes Son No problems noted. Son No problems noted. Social History (Updated 06/30/23 @ 09:12 by Lesly Pinto MD) Housing: House Alcohol intake: current Alcohol intake frequency: holidays/special occasions only Comment: glass of wine on parties Patient Tobacco Use Status: Never used Tobacco e-Cigarette/Vaping Use: Never Used Second Hand Smoke Exposure: No Current occupational status: employed Cognitive needs: No Hearing needs: No Vision needs: No Questionnaire PHQ-9 Over the last 2 weeks, how often have you been bothered by any of the following problems? 1. Little interest or pleasure in doing things: several days 2. Feeling down, depressed, or hopeless: several days 3. Trouble falling or staying asleep, or sleeping too much: not at all 4. Feeling tired or having little energy: not at all 5. Poor appetite or overeating: several days 6. Feeling bad about yourself - or that you are a failure or have let yourself or your family down: not at all 7. Trouble concentrating on things, such as reading the newspaper or watching television: not at all 8. Moving or speaking so slowly that other people could have noticed. Or the opposite - being so fidgety or restless that you have been moving around a lot more than usual: not at all 9. Thoughts that you would be better off or of hurting yourself in some way: not at all Total score: 3 Depression Screening Interpretation: Negative Depression Screening Done: Yes Source: Developed by Drs. Jf Marcelo, Negar Lundy, Bradley Garcia and colleagues, with an educational jada from [employer]. Thrive Questionnaire Date Thrive assessed: 06/30/23 I am a: Patient What is your living situation today?: I have a steady place to live Within the past 12 months, did the food you bought not last and you didn't have the money to get more?: Never true Within the past 12 months, did you worry whether your food would run out before you got money to buy more?: Never true Do you have trouble paying for medicines?: No Do you have trouble getting transportation to medical appointments?: No Do you have trouble paying your heating and electricity bill?: No Do you have trouble taking care of your child, family member or friend?: No Do you have trouble with day-to-day activities such as bathing, preparing meals, shopping, managing finances, etc.?: No Are you currently unemployed and looking for a job?: No Are you interested in more education?: No Currently or been in a relationship where the following occur: no concerns reported THRIVE Score: 0 AUDIT C Alcohol Use Questionnaire (AUDIT-C) 1. How often do you have a drink containing alcohol?: Monthly or less 2. How many drinks containing alcohol do you have on a typical day when you are drinking?: 1 or 2 3. How often do you have six or more drinks on one occasion?: Never Total Score: 1 PABLO-7 AMB Questionnaire PABLO-7 Date PABLO - 7 assessed: 06/30/23 Feeling nervous, anxious, or on edge: 0 = Not at all Not being able to stop or control worryin = Not at all Worrying too much about different things: 0 = Not at all Trouble relaxin = Not at all Being so restless that it is hard to sit still: 0 = Not at all Becoming easily annoyed or irritable: 0 = Not at all Feeling afraid as if something awful might happen: 0 = Not at all Total PABLO-7 score (0-4 normal; 5-9 mild; 10-14 moderate; 15-21 severe): 0 Source: Developed by Drs. Jf Marcelo, Negar Lundy, Bradley Garcia and colleagues, with an educational jada from [employer]. Review of Systems Const Denies poor appetite and Denies weakness Eyes Denies no additional complaints ENT Reports Normal hearing present, Denies dizziness, Denies nasal congestion, Denies tinnitus and Denies sore throat Card Denies chest pain, Denies syncope, Denies rapid heart rate and Denies dyspnea Resp Denies cough and Denies dyspnea GI Denies change in stool character, Reports constipation, Denies diarrhea, Denies nausea and Denies vomiting Denies urinary frequency, Denies difficulty voiding and Denies dysuria Neuro Reports Normal hearing present, Denies confusion, Denies dizziness, Denies syncope and Denies weakness Psych Denies confusion Physical exam (Primary Care) Vital Signs: Oxygen Delivery Method Room Air 06/30/23 08:56 Tobacco/Smoking Status: Tobacco use Status Tobacco use date assessed 10/16/22 06/02/23 11:34 Patient Tobacco Use Status Never used Tobacco 06/02/23 11:34 e-Cigarette/Vaping Use Never Used 06/02/23 11:34 Depression Screening Interpretation: Negative Thrive Assessment: Date of Thrive Assessment Date Thrive assessed 10/16/22 06/02/23 11:34 Currently or been in a relationship where the following occur: no concerns reported Const General: No confusion Orientation/consciousness: No confusion HENMT Head: Yes normocephalic Ears: external ears normal and TM's normal bilaterally Face and sinus: Yes normal facial exam Mouth: moist mucous membranes Throat: Yes tonsils normal Eyes Conjunctivae: conjunctivae normal Pupils: Equal, round and reactive pupils present and Pupil accommodation reflex normal Direct Ophthalmoscopy: normal light reflex Neck Neck: No lymphadenopathy Thyroid: Thyroid normal Chest Chest palpation & inspection: normal inspection of the chest Resp Effort & Inspection: normal respiratory effort and no audible wheezes Auscultation: clear to auscultation bilaterally, no crackles, no wheezes and lung sounds not diminished Cardio Rate: regular rate Rhythm: regular rhythm Peripheral pulses: radial pulses present and dorsalis pedis present GI Other: Colonoscopy scheduled mid year Palpation (GI): no masses Auscultation: normal bowel sounds and normoactive bowel sounds Rectal Exam - Female: deferred Skin Other: Pedal pulses equal and pinprick normal General skin exam: no rashes or lesions noted Rashes: no rashes Neuro General: No confusion Cranial nerves: Yes Equal, round and reactive pupils present and Yes Normal hearing present Cognition (Neuro): normal cognition Gait exam (Neuro): Normal gait present Motor exam (neuro): 5/5 motor strength present throughout Deep tendon reflexes (DTR's): Right brachioradialis reflex intensity grade: 2+, Left brachioradialis reflex intensity grade: 2+, Right patellar reflex intensity grade: 2+ and Left patellar reflex intensity grade: 2+ Extrem General: No edema Assessment and Plan Assessment & Plan (1) Annual physical exam: Code(s): Z00.00 - Encounter for general adult medical examination without abnormal findings (2) Type 2 diabetes mellitus with hyperglycemia: Comment: [facility] Code(s): E11.65 - Type 2 diabetes mellitus with hyperglycemia Qualifiers: Diabetes mellitus supervisor intermediates insulin use: without [facility] use Qualified Code(s): E11.65 - Type 2 diabetes mellitus with hyperglycemia Plan: Decrease the amount of carbohydrate intake, pasta, bread, rice and potatoes are all sugar and that is aside from all the sweet stuff, remember that fruits are good but they are Sweet also. Hemoglobin A1c goal of less than 6.5 patient is at goal taking metformin a 1000 mg twice a day and Ozempic once a week (3) Obesity: Code(s): E66.9 - Obesity, unspecified Qualifiers: Obesity type: due to excess calories Obesity classification: adult class 3 (BMI >= 40) Serious obesity comorbidity presence: with serious comorbidity Body mass index: BMI 40.0-44.9 Qualified Code(s): E66.01 - Morbid (severe) obesity due to excess calories; Z68.41 - Body mass index [BMI]40.0-44.9, adult Plan: Diet and exercise (4) Hypertension: Code(s): I10 - Essential (primary) hypertension Qualifiers: Hypertension type: essential hypertension Qualified Code(s): I10 - Essential (primary) hypertension Plan: Continue with blood pressure medication. Decrease salt intake and exercise continue with metoprolol 100 mg twice a day lisinopril 40 mg once a day hydrochlorothiazide 25 mg once a day and amlodipine 2.5 mg once a day (5) Hypercholesterolemia: Code(s): E78.00 - Pure hypercholesterolemia, unspecified Plan: Avoid fried foods, chicken skin, eggs, butter margarine, pastries and meat. Be it pork or beef they have a lot of cholesterol LDL goal of less than 100 and triglyceride of less than 150. Patient is on atorvastatin 20 mg once a day (6) GERD (gastroesophageal reflux disease): Code(s): K21.9 - Gastro-esophageal reflux disease without esophagitis Qualifiers: Esophagitis presence: without esophagitis Qualified Code(s): K21.9 - Gastro-esophageal reflux disease without esophagitis Plan: Avoid the foods that causes that usually spicy foods, tomato products, juices, coffee, soda and foods that your sensitive to. After eating do not lie down, allow 3-4 hours before in lie down. And keep the head of bed above 30 degrees to avoid the acid from going up. (7) Bipolar disorder: Code(s): F31.9 - Bipolar disorder, unspecified Qualifiers: Active/Remission status: currently active Current bipolar episode type: depressed Current episode severity: moderate Qualified Code(s): F31.32 - Bipolar disorder, current episode depressed, moderate Plan: Continue with therapy (8) Osteoarthritis of knees, bilateral: Code(s): M17.0 - Bilateral primary osteoarthritis of knee Plan: Patient has been seen by ortho and planned surgery on the right knee. (9) Colon cancer screening: Code(s): Z12.11 - Encounter for screening for malignant neoplasm of colon Plan: Patient is reminded about colonoscopy (10) Preop exam for internal medicine: Code(s): Z01.818 - Encounter for other preprocedural examination Plan: Patient is here for preoperative evaluation also for knee surgery. L knee August 12, 2023 Dr. Severino. EKG requested due to the elevated renal function, advised to stop meloxicam. And as for any anti-inflammatory to hold off 1 week prior to the procedure. Orders: Orders ECG 12 lead EKG Today Z01.818 - Encounter for other preprocedural examination Medications: Changed From semaglutide for 4 doses 0.5 mg (0.374 mL) subcut QWEEK 30 days 2 mL 3RF E11.65 - Type 2 diabetes mellitus with hyperglycemia To semaglutide for 4 doses 1 mg (0.75 mL) subcut QWEEK 30 days 3.75 mL 3RF E11.65 - Type 2 diabetes mellitus with hyperglycemia Refilled omeprazole 20 mg PO DAILY 90 days 90 caps 3RF M25.561 - Pain in right knee, M25.562 - Pain in left knee Discontinued meloxicam Discontinued Reason: Doctor's Order 15 mg PO DAILY 90 tabs 2RF M17.0 - Bilateral primary osteoarthritis of knee Coding Level of Care Code Est Pt Prev Care >65y(90284) Diagnoses Annual physical exam Z00.00 Type 2 diabetes mellitus with hyperglycemia, without long-term current use of insulin E11.65 Diabetes mellitus [facility] insulin use: without [facility] use Class 3 severe obesity due to excess calories with serious comorbidity and body mass index (BMI) of 40.0 to 44.9 in adult E66.01; Z68.41 Obesity type: due to excess calories Obesity classification: adult class 3 (BMI >= 40) Serious obesity comorbidity presence: with serious comorbidity Body mass index: BMI 40.0-44.9 Essential hypertension I10 Hypertension type: essential hypertension Hypercholesterolemia E78.00 Gastroesophageal reflux disease without esophagitis K21.9 Esophagitis presence: without esophagitis Bipolar affective disorder, currently depressed, moderate F31.32 Active/Remission status: currently active Current bipolar episode type: depressed Current episode severity: moderate Osteoarthritis of knees, bilateral M17.0 Colon cancer screening Z12.11 Preop exam for internal medicine Z01.818
== END 2023-06-30 09:32 | disposition home or self-care (01) ==
PROVIDERS: Visit Provider Internal Medicine
DX: E11.65 Type 2 diabetes mellitus with hyperglycemia (principal); E66.01 Morbid (severe) obesity due to excess calories; Z68.41 Body mass index [BMI] 40.0-44.9, adult; F31.32 Bipolar disorder, current episode depressed, moderate; Z01.818 Encounter for other preprocedural examination; Z12.11 Encounter for screening for malignant neoplasm of colon; I10 Essential (primary) hypertension; E78.00 Pure hypercholesterolemia, unspecified; K21.9 Gastro-esophageal reflux disease without esophagitis; M17.0 Bilateral primary osteoarthritis of knee
CPT/HCPCS: 99214

== ENCOUNTER → 2023-07-01 09:48 | Outpatient (REF) | payer OTHER, SELFPAY ==
--- NOTE | 2023-07-01 10:06 | ECG_ITS ---
Test Reason : PRE OP Blood Pressure : / mmHG Vent. Rate : 096 BPM Atrial Rate : 096 BPM P-R Int : 168 ms QRS Dur : 062 ms QT Int : 352 ms P-R-T Axes : 050 034 053 degrees QTc Int : 444 ms Sinus rhythm with occasional Premature atrial complexes (vs PVC) Otherwise normal ECG When compared with ECG of 26-AUG-2022 10:03, change as above Vent. rate has increased BY 39 BPM Referred By: Lesly Pinto Electronically Signed By:IRENE MCKINNON
== END ==
LOC: HO.CARD 09:48
PROVIDERS: PCP Internal Medicine; Visit Provider Internal Medicine
DX: Z01.818 Encounter for other preprocedural examination (principal)
CPT/HCPCS: 93005

== ENCOUNTER → 2023-07-01 10:06 | Outpatient (BNV) | payer OTHER, SELFPAY | PROVIDERS: PCP Internal Medicine; Visit Provider Internal Medicine | DX: I49.1 Atrial premature depolarization (principal) | CPT/HCPCS: 93010 ==

== ENCOUNTER 2023-08-06 13:48 | Outpatient (AMB) | payer MEDICARE, OTHER, SELFPAY ==
[2023-08-06 13:51] VITALS: BP 154/78; PULSE 75; O2SAT 98; BMI 37.0
--- NOTE | 2023-08-06 13:51 | A.OFFPC_ITS ---
Vital Signs 08/06/23 13:51 Height 5 ft 1 in Weight 196 lb BMI 37.0 BP 154/78 H Blood Pressure Location Lt brachial Position Sitting Pulse 75 Pulse Source Pulse Oximeter Pulse Oximetry (%) 98 Oxygen Delivery Method Room Air Intake Visit Reasons: Pre-Op Clearance Allergies No Known Allergies Allergy (Verified 08/06/23 13:52) Medication List - Last Reconciled 08/06/23 by Lesly Pinto MD alprazolam 0.25 mg PO BEDTIME PRN atorvastatin 20 mg PO DAILY 90 days blood sugar diagnostic (FreeStyle Lite Strips) As directed check the BS QD blood-glucose meter (FreeStyle Lite Meter kit) As directed duloxetine (Cymbalta) 60 mg PO DAILY 90 days lancets (FreeStyle Lancets) As directed check BS QD lisinopril 40 mg PO DAILY melatonin 10 mg PO BEDTIME PRN metformin 1,000 mg PO DAILY metoprolol tartrate 100 mg PO BID 90 days mirtazapine 7.5 mg PO BEDTIME PRN omeprazole 20 mg PO DAILY 90 days semaglutide 1 mg (0.75 mL) subcut QWEEK 30 days Tobacco use date assessed: 06/30/23 Fall risk assessment: No Falls in past year Last assessed Fall Risk: 08/06/23 Dental Screening Dental Screen Date: 08/06/23 Did you have a dental visit in the last 12 months?: Yes Did you have a dental problem in the last 6 months where you did not have access to dental care?: No Was dental information given to patient?: Patient has dentist HPI Pre-Op Clearance HPI Details 68-year-old obese female with controlled diabetes mellitus hypertension hypercholesterolemia GERD bipolar disorder bilateral knee osteoarthritis coming in for preoperative evaluation. Patient was last seen in June 2023 for that preoperative evaluation also. Patient is due for colonoscopy. Mammogram is up-to-date bone density is up-to-date. Electrocardiogram done 07/01/2023 sinus rhythm with occasional PVCs. L knee replacement August 13, 2023 [facility] Medical History (Updated 08/05/23 @ 12:07 by Nohemy Ma RN) Diabetes Numbness Age-related osteoporosis without current pathological fracture Knee pain, bilateral Left leg pain Annual physical exam Preop exam for internal medicine Cataract BMI 37.0-37.9, adult Bipolar 2 disorder Arthritis Diverticulosis BMI 38.0-38.9,adult Obesity Carpal tunnel syndrome Hypercholesterolemia Anxiety Hypertension Insomnia Vitamin D deficiency GERD (gastroesophageal reflux disease) Fibromyalgia Surgical History History of cataract surgery H/O ovarian cystectomy History of colonoscopy History of discectomy History of carpal tunnel release History of tonsillectomy History of cholecystectomy History of appendectomy Family History Father Hypertension CVD (cardiovascular disease) Cancer Mother Hypertension Diabetes Maternal Aunt Colon cancer Father No problems noted. Sister Diabetes Sister Diabetes Sister Diabetes Brother Diabetes Son No problems noted. Son No problems noted. Social History (Updated 06/30/23 @ 09:12 by Lesly Pinto MD) Housing: House Are you a primary rn care manager to a significant other at home: No Do you presently have visiting nurse or other home services: No Alcohol intake: current Alcohol intake frequency: does not drink Comment: glass of wine on parties Patient Tobacco Use Status: Never used Tobacco e-Cigarette/Vaping Use: Never Used Second Hand Smoke Exposure: No Current occupational status: employed Cognitive needs: No Hearing needs: No Vision needs: No Questionnaire PHQ-9 Over the last 2 weeks, how often have you been bothered by any of the following problems? 1. Little interest or pleasure in doing things: several days 2. Feeling down, depressed, or hopeless: several days 3. Trouble falling or staying asleep, or sleeping too much: not at all 4. Feeling tired or having little energy: not at all 5. Poor appetite or overeating: several days 6. Feeling bad about yourself - or that you are a failure or have let yourself or your family down: not at all 7. Trouble concentrating on things, such as reading the newspaper or watching television: not at all 8. Moving or speaking so slowly that other people could have noticed. Or the opposite - being so fidgety or restless that you have been moving around a lot more than usual: not at all 9. Thoughts that you would be better off or of hurting yourself in some way: not at all Total score: 3 Depression Screening Interpretation: Negative Depression Screening Done: Yes Source: Developed by Drs. Jf Marcelo, Negar B.W. Bradley Lundy and colleagues, with an educational jada from [employer]. Thrive Questionnaire Date Thrive assessed: 06/30/23 AUDIT C Alcohol Use Questionnaire (AUDIT-C) 1. How often do you have a drink containing alcohol?: Monthly or less 2. How many drinks containing alcohol do you have on a typical day when you are drinking?: 1 or 2 3. How often do you have six or more drinks on one occasion?: Never Total Score: 1 PABLO-7 AMB Questionnaire PABLO-7 Date PABLO - 7 assessed: 06/30/23 Source: Developed by Drs. Jf Marcelo, Bradley Henning and colleagues, with an educational jada from [employer]. Review of Systems Const Denies poor appetite and Denies weakness Eyes Denies no additional complaints ENT Reports Normal hearing present, Denies dizziness, Denies nasal congestion, Denies tinnitus and Denies sore throat Card Denies chest pain, Denies syncope, Denies rapid heart rate and Denies dyspnea Resp Denies cough and Denies dyspnea GI Denies change in stool character, Reports constipation, Denies diarrhea, Denies nausea and Denies vomiting Denies urinary frequency, Denies difficulty voiding and Denies dysuria Neuro Reports Normal hearing present, Denies confusion, Denies dizziness, Denies syncope and Denies weakness Psych Denies confusion Physical exam (Primary Care) Vital Signs: Last Vital Signs Pulse 75 08/06/23 13:51 BP 154/78 H 08/06/23 13:51 Pulse Ox 98 08/06/23 13:51 Oxygen Delivery Method Room Air 08/06/23 13:51 BMI result Body Mass Index 37.0 Tobacco/Smoking Status: Tobacco use Status Tobacco use date assessed 06/30/23 08/06/23 13:52 Patient Tobacco Use Status Never used Tobacco 08/06/23 13:52 e-Cigarette/Vaping Use Never Used 08/06/23 13:52 PHQ-9: PHQ-9 Score PHQ-9: Total score 3 08/06/23 13:52 Depression Screening Interpretation: Negative Thrive Assessment: Date of Thrive Assessment Date Thrive assessed 06/30/23 08/06/23 13:52 Const General: No confusion Orientation/consciousness: No confusion Eyes Conjunctivae: conjunctivae normal Resp Auscultation: clear to auscultation bilaterally Cardio Rate: regular rate Rhythm: regular rhythm GI Inspection: Yes normal to inspection Neuro General: No confusion Cranial nerves: Yes Normal hearing present Extrem General: Yes normal to inspection and No edema Assessment and Plan Assessment & Plan (1) Preop exam for internal medicine: Code(s): Z01.818 - Encounter for other preprocedural examination Plan: EKG and blood work evaluated. No further workup needed at this time. Patient belongs to the low risk category. May proceed with the contemplated procedure. Discussed about holding off any anti-inflammatory like Motrin ibuprofen Aleve Advil 1 week before the procedure. Discussed about taking the blood pressure medication prior to the procedure. Thank you very much for letting me participate in the care of this patient. (2) Type 2 diabetes mellitus with hyperglycemia: Comment: [facility] Code(s): E11.65 - Type 2 diabetes mellitus with hyperglycemia Qualifiers: Diabetes mellitus ocean transportation intermediary insulin use: without ocean transportation intermediary use Qualified Code(s): E11.65 - Type 2 diabetes mellitus with hyperglycemia Plan: Decrease the amount of carbohydrate intake, pasta, bread, rice and potatoes are all sugar and that is aside from all the sweet stuff, remember that fruits are good but they are Sweet also. Hemoglobin A1c goal of less than 7.0 presently on metformin a 1000 mg twice a day and semaglutide (3) GERD (gastroesophageal reflux disease): Code(s): K21.9 - Gastro-esophageal reflux disease without esophagitis Qualifiers: Esophagitis presence: without esophagitis Qualified Code(s): K21.9 - Gastro-esophageal reflux disease without esophagitis Plan: Avoid the foods that causes that usually spicy foods, tomato products, juices, coffee, soda and foods that your sensitive to. After eating do not lie down, allow 3-4 hours before in lie down. And keep the head of bed above 30 degrees to avoid the acid from going up. On omeprazole (4) Hypertension: Code(s): I10 - Essential (primary) hypertension Qualifiers: Hypertension type: essential hypertension Qualified Code(s): I10 - Essential (primary) hypertension Plan: Continue with blood pressure medication. Decrease salt intake and exercise patient takes metoprolol 100 mg twice a day lisinopril 40 mg once a day (5) Hypercholesterolemia: Code(s): E78.00 - Pure hypercholesterolemia, unspecified Plan: Avoid fried foods, chicken skin, eggs, butter margarine, pastries and meat. Be it pork or beef they have a lot of cholesterol LDL goal of less than 100 and triglyceride of less than 150. On atorvastatin 20 mg once a day (6) Obesity: Code(s): E66.9 - Obesity, unspecified Qualifiers: Obesity type: due to excess calories Obesity classification: adult class 3 (BMI >= 40) Serious obesity comorbidity presence: with serious comorbidity Body mass index: BMI 40.0-44.9 Qualified Code(s): E66.01 - Morbid (severe) obesity due to excess calories; Z68.41 - Body mass index [BMI]40.0- 44.9, adult Plan: Diet and exercise Medications: New gabapentin 300 mg PO BID 180 caps 0RF Coding Level of Care Code Est Pt Level 4 (65654) Diagnoses Preop exam for internal medicine Z01.818 Type 2 diabetes mellitus with hyperglycemia, without long-term current use of in sulin E11.65 Diabetes mellitus usp insulin use: without usp use Gastroesophageal reflux disease without esophagitis K21.9 Esophagitis presence: without esophagitis Essential hypertension I10 Hypertension type: essential hypertension Hypercholesterolemia E78.00 Class 3 severe obesity due to excess calories with serious comorbidity and body mass index (BMI) of 40.0 to 44.9 in adult E66.01; Z68.41 Obesity type: due to excess calories Obesity classification: adult class 3 (BMI >= 40) Serious obesity comorbidity presence: with serious comorbidity Body mass index: BMI 40.0-44.9
== END 2023-08-06 14:13 | disposition home or self-care (01) ==
PROVIDERS: PCP Internal Medicine; Visit Provider Internal Medicine
DX: E11.65 Type 2 diabetes mellitus with hyperglycemia (principal); E66.01 Morbid (severe) obesity due to excess calories; Z68.41 Body mass index [BMI] 40.0-44.9, adult; Z01.818 Encounter for other preprocedural examination; K21.9 Gastro-esophageal reflux disease without esophagitis; I10 Essential (primary) hypertension; E78.00 Pure hypercholesterolemia, unspecified
CPT/HCPCS: 99214

== ENCOUNTER 2023-08-07 11:11 | Outpatient (AMB) | payer OTHER, SELFPAY ==
--- NOTE | 2023-08-07 11:17 | A.OFFVIS_ITS ---
Intake Vital Signs 08/07/23 11:27 Height 5 ft 1 in Weight 196 lb BMI 37.0 Intake Visit Reasons: pre op left TKA 08/13/23 N.E. Intake Note: Rylee ferreira 68 year old female presents today for a preoperative left TKA on 08/13/23 NE. Pain management agreement reviewed and signed. Allergies No Known Allergies Allergy (Verified 08/07/23 11:28) HPI HPI Comments History of Present Illness Details Ms Novoa presents to the office today for preop visit. She is scheduled for left total knee arthroplasty with Dr. Severino. She continues to have ongoing pain and difficulty with ambulation in the left knee, which is affecting her quality of life; therefore, she has elected to move forward with surgery. [facility] Medical History (Updated 08/07/23 @ 13:24 by Elin Peace PA-C) Diabetes Numbness Age-related osteoporosis without current pathological fracture Knee pain, bilateral Left leg pain Annual physical exam Preop exam for internal medicine Cataract BMI 37.0-37.9, adult Bipolar 2 disorder Arthritis Diverticulosis BMI 38.0-38.9,adult Obesity Carpal tunnel syndrome Hypercholesterolemia Anxiety Hypertension Insomnia Vitamin D deficiency GERD (gastroesophageal reflux disease) Fibromyalgia Surgical History History of cataract surgery H/O ovarian cystectomy History of colonoscopy History of discectomy History of carpal tunnel release History of tonsillectomy History of cholecystectomy History of appendectomy Family History Father Hypertension CVD (cardiovascular disease) Cancer Mother Hypertension Diabetes Maternal Aunt Colon cancer Father No problems noted. Sister Diabetes Sister Diabetes Sister Diabetes Brother Diabetes Son No problems noted. Son No problems noted. Social History Housing: House Are you a primary chronic care nurse to a significant other at home: No Do you presently have visiting nurse or other home services: No Alcohol intake: current Alcohol intake frequency: does not drink Comment: glass of wine on parties Patient Tobacco Use Status: Never used Tobacco e-Cigarette/Vaping Use: Never Used Second Hand Smoke Exposure: No Current occupational status: employed Cognitive needs: No Hearing needs: No Vision needs: No Review of Systems Const All systems reviewed & are unremarkable except as noted in HPI and below Physical Exam Vital Signs: BMI result Body Mass Index 37.0 Const General: cooperative and no acute distress Orientation/consciousness: patient oriented x3 Neck Neck: Yes normal visual inspection and Yes no lymphadenopathy Resp Effort & Inspection: normal respiratory effort and able to speak in complete sentences Cardio Rate: regular rate Peripheral pulses: Peripheral pulses 2+ throughout GI Inspection: Yes normal to inspection Palpation (GI): Soft to palpation Skin General skin exam: no rashes or lesions noted Neuro General: patient oriented x3 Extrem Other: Left knee: Skin intact. No open wound or abrasions. ROM is 0-100 degrees. Calf supple, nontender. NVI. Assessment & Plan Assessment & Plan (1) Osteoarthritis of left knee: Code(s): M17.12 - Unilateral primary osteoarthritis, left knee Qualifiers: Osteoarthritis type: primary Qualified Code(s): M17.12 - Unilateral primary osteoarthritis, left knee Plan I discussed in detail the procedure and what to expect pre and post operatively. We discussed the risks, benefits and alternatives to the surgery as well as the rehabilitation course. The risks; which include, but are not limited to infection, bleeding, nerve injury, ongoing pain, swelling, and stiffness, perioperative risk of injury to bones and soft tissues, and blood clots. I?ve answered all questions and with their understanding they have consented to move forward with Left total knee arthroplasty with Dr. Severino Orders: Orders PT Evaluation and Treatment Today Z96.652 - Presence of left artificial knee joint Patient Instructions: Scribed for Elin Peace PA-C, by Da Gilbetr durable medical equipment technician, on 08/07/2023 at 11:15 AM [facility]. Elin Camacho PA-C, have personally reviewed and agree with the information entered by the scribe. Coding Level of Care Code Est Pt Level 3 (63955) Diagnoses Primary osteoarthritis of left knee M17.12 Osteoarthritis type: primary
[2023-08-07 11:27] VITALS: BMI 37.0
== END 2023-08-07 11:44 | disposition home or self-care (01) ==
PROVIDERS: PCP Internal Medicine; Visit Provider Physician Assistant
DX: M17.12 Unilateral primary osteoarthritis, left knee (principal)
CPT/HCPCS: 99024

== ENCOUNTER → 2023-08-07 11:11 | Outpatient (BNVA) | payer OTHER, SELFPAY | PROVIDERS: PCP Internal Medicine; Visit Provider Physician Assistant ==

== ENCOUNTER 2023-08-13 06:17 | Inpatient (IN) | payer OTHER, MEDICARE, SELFPAY ==
[2023-08-05 12:21] VITALS: BP 126/69; PULSE 78; RESP 18; O2SAT 95; BMI 37.8
--- NOTE | 2023-08-05 12:46 | P.CONAN_ITS ---
Documented by User: Radha Messer NP 08/12/23 08:55 HPI - Anesthesia Eval Consult details Narrative: 68yo F for Left Knee Replacement Total, 08/13/23 Medically cleared No recent illness. No CP/SOB with limited acitivity related to pain DM. FBS ~ 112 GERD. Controlled with ppi Anesthesia Pre-Procedure Meds Is the patient on any of the following meds?: Semaglutide (Ozempic) (Last dose 07/27/23) [facility] Active Problems Active Problems: All Active Problems (Updated 08/05/23 @ 12:07 by Nohemy Ma RN) Osteoarthritis, knee (Acute) Osteopenia (Acute) Nasal lesion (Acute) Cervical cancer screening (Acute) Colon cancer screening (Acute) Annual physical exam (Acute) COVID-19 virus infection (Acute) Wrist pain, right (Acute) Osteoarthritis of knees, bilateral (Acute) Peripheral neuropathy (Acute) Bile salt-induced diarrhea (Acute) Type 2 diabetes mellitus with hyperglycemia (Acute) Frequency of urination (Acute) Peripheral neuropathy (Acute) Bipolar disorder (Acute) Preop exam for internal medicine (Acute) Obesity (Acute) Hypercholesterolemia (Acute) Hypertension (Acute) GERD (gastroesophageal reflux disease) (Acute) Past Medical History Medical History Diabetes Numbness Age-related osteoporosis without current pathological fracture Knee pain, bilateral Left leg pain Annual physical exam Preop exam for internal medicine Cataract BMI 37.0-37.9, adult Bipolar 2 disorder Arthritis Diverticulosis BMI 38.0-38.9,adult Obesity Carpal tunnel syndrome Hypercholesterolemia Anxiety Hypertension Insomnia Vitamin D deficiency GERD (gastroesophageal reflux disease) Fibromyalgia Family History Family History Father Hypertension CVD (cardiovascular disease) Cancer Mother Hypertension Diabetes Maternal Aunt Colon cancer Father No problems noted. Sister Diabetes Sister Diabetes Sister Diabetes Brother Diabetes Son No problems noted. Son No problems noted. Family history of problems with anesthesia: No Surgical History Surgical History History of cataract surgery H/O ovarian cystectomy History of colonoscopy History of discectomy History of carpal tunnel release History of tonsillectomy History of cholecystectomy History of appendectomy History of Problems with Anesthesia: No Social History Social History Housing: House Are you a primary health care marketing specialist to a significant other at home: No Do you presently have visiting nurse or other home services: No Alcohol intake: current Alcohol intake frequency: does not drink Comment: glass of wine on parties Patient Tobacco Use Status: Never used Tobacco e-Cigarette/Vaping Use: Never Used Second Hand Smoke Exposure: No Use of substances other than those prescribed or required for medical reasons: No Have you been hit, kicked, punched, or otherwise hurt by someone within the past year? If so, by whom?: No Are you DNR?: No Advance Directives: No Advance Directives Information Provided: No Advance Directives on File: No Recently lost weight without trying: No Eating poorly because of decreased appetite: No Nutrition Risks: No Nutritional Risk Patient : No : No Poor oral hygiene: Yes (full upper denture, missing teeth on the bottom) Current occupational status: employed Cognitive needs: No Hearing needs: No Vision needs: No Meds Allergies Allergy/AdvReac Type Severity Reaction Status Date / Time No Known Allergies Allergy Verified 08/07/23 11:28 Home Medications Medication Instructions Recorded Confirmed Last Taken Type melatonin 10 mg capsule 10 mg PO BEDTIME PRN Insomnia 10/04/20 08/06/23 08/12/23 History metformin 1,000 mg tablet 1,000 mg PO DAILY 06/30/23 08/06/23 08/12/23 History mirtazapine 7.5 mg tablet 7.5 mg PO BEDTIME PRN Insomnia 08/05/23 08/06/23 Unknown History amlodipine 2.5 mg tablet 2.5 mg PO DAILY 08/13/23 Unknown History hydrochlorothiazide 25 mg tablet 25 mg PO DAILY 08/13/23 Unknown History Exam Height,Weight and Vital Signs: Height 5 ft 1 in Weight 90.718 kg Last Vital Signs Pulse 78 08/05/23 12:21 Resp 18 08/05/23 12:21 BP 126/69 08/05/23 12:21 Pulse Ox 95 08/05/23 12:21 O2 Del Method Room Air 08/05/23 12:21 Pertinent Lab Results Pertinent Lab Results: Laboratory Tests 10/15/22 06/27/23 06/27/23 10:32 10:25 10:25 WBC 6.1 Hgb 14.1 Hct 42.1 Plt Count 185 Sodium 137 Potassium 4.3 Chloride 104 Carbon Dioxide 22 BUN 26 H Creatinine 1.22 Airway Mallampati Class: III TM Dist: >3cm Neck ROM: Full Denture: Upper Loose/Missing/Broken Teeth: Yes (Lower molars missing) Heart: RRR Lungs: CTAB Assessment and Plan Assessment Anesthesia Assessment: Anesthesia Plan Discussed and PAT Visit Final Anesthetic Review Family History of Problems with Anesthesia: No History of Problems with Anesthesia: No Documented by User: Amna Kat MD 08/13/23 08:30 HPI - Anesthesia Eval Anesthesia Pre-Procedure Meds If Yes to any meds - educate patient: Pt education - increased risk of aspiration and Pt education - possibility of cancelled proc at provider's discretion PMFSH Past Medical History Medical History Diabetes Numbness Age-related osteoporosis without current pathological fracture Knee pain, bilateral Left leg pain Annual physical exam Preop exam for internal medicine Cataract BMI 37.0-37.9, adult Bipolar 2 disorder Arthritis Diverticulosis BMI 38.0-38.9,adult Obesity Carpal tunnel syndrome Hypercholesterolemia Anxiety Hypertension Insomnia Vitamin D deficiency GERD (gastroesophageal reflux disease) Fibromyalgia Family History Family History Father Hypertension CVD (cardiovascular disease) Cancer Mother Hypertension Diabetes Maternal Aunt Colon cancer Father No problems noted. Sister Diabetes Sister Diabetes Sister Diabetes Brother Diabetes Son No problems noted. Son No problems noted. Surgical History Surgical History History of cataract surgery H/O ovarian cystectomy History of colonoscopy History of discectomy History of carpal tunnel release History of tonsillectomy History of cholecystectomy History of appendectomy Social History Social History Housing: House Are you a primary health care marketing specialist to a significant other at home: No Do you presently have visiting nurse or other home services: No Alcohol intake: current Alcohol intake frequency: does not drink Comment: glass of wine on parties Patient Tobacco Use Status: Never used Tobacco e-Cigarette/Vaping Use: Never Used Second Hand Smoke Exposure: No Use of substances other than those prescribed or required for medical reasons: No Have you been hit, kicked, punched, or otherwise hurt by someone within the past year? If so, by whom?: No Are you DNR?: No Advance Directives: No Advance Directives Information Provided: No Advance Directives on File: No Recently lost weight without trying: No Eating poorly because of decreased appetite: No Nutrition Risks: No Nutritional Risk Patient : No : No Poor oral hygiene: Yes (full upper denture, missing teeth on the bottom) Current occupational status: employed Cognitive needs: No Hearing needs: No Vision needs: No Meds Allergies Allergy/AdvReac Type Severity Reaction Status Date / Time No Known Allergies Allergy Verified 08/07/23 11:28 Home Medications Medication Instructions Recorded Confirmed Last Taken Type melatonin 10 mg capsule 10 mg PO BEDTIME PRN Insomnia 10/04/20 08/06/23 08/12/23 History metformin 1,000 mg tablet 1,000 mg PO DAILY 06/30/23 08/06/23 08/12/23 History mirtazapine 7.5 mg tablet 7.5 mg PO BEDTIME PRN Insomnia 08/05/23 08/06/23 Unknown History amlodipine 2.5 mg tablet 2.5 mg PO DAILY 08/13/23 Unknown History hydrochlorothiazide 25 mg tablet 25 mg PO DAILY 08/13/23 Unknown History Assessment and Plan Assessment Anesthesia Assessment: Chart Reviewed Final Anesthetic Review NPO: Yes ASA Class: III Final Preanesthetic Review: No Changes in Pt Med Stat, Meds/Allgs Chart Reviewed , Consent Obtained/Reviewed and Anes Risks/Benef Reviewed Patient Risk: Intermediate Procedure Risk: Intermediate Anesthetic Plan Anesthetic Plan: Spinal and Regional Block Disposition: Standard PACU
[2023-08-05 14:16] LABS: MRSA Nasal PCR NEGATIVE (Negative); SA Nasal PCR NEGATIVE (Negative)
[2023-08-13] VITALS (11 sets, daily range): BP systolic 99–146; BP diastolic 39–68; PULSE 65–84; RESP 15–18; TEMP 36–36.8; O2SAT 94–98; BMI 38.4
--- NOTE | ~2023-08-13 | XR_ITS ---
EXAMINATION: XR KNEE, LEFT CLINICAL INFORMATION: Reason for Exam LTKA COMPARISON: Knee radiographs 06/02/2023 TECHNIQUE: 2 views of the knee FINDINGS: No acute fracture or dislocation. Status post total knee arthroplasty in anatomic alignment. No evidence of hardware failure or complication. Amorphous mineralization in the soft tissues along the lateral aspect of the knee. Expected postsurgical changes with subcutaneous emphysema and suprapatellar effusion. Soft tissue surgical radha. XR/XR knee LT 2V IMPRESSION: * Status post total knee arthroplasty in anatomic alignment with expected postsurgical change. No evidence of hardware failure or complication.
[2023-08-13 07:11] LABS: Glucose, Whole Blood 172 mg/dL (60-115)
[2023-08-13] MEDS: Lactated Ringers 1,000 ML 100 ML IVCONT ×2 (07:11→11:08)
--- NOTE | 2023-08-13 07:21 | MHC.SHP ---
Pre-Procedural Eval Section A - 24 Hr Update-Section A only Date of Service: 08/13/23 The patient is an INPATIENT: No Changes since office visit: No Cold of Flu in the past 2 weeks, No New Medical Problems, No Changes in Medication and No Patient answered all questions The patient has been examined within 24 hours of the surgical procedure. The History & Physical has been completed within 30 days and I have reviewed it.: Yes Section B - Complete if H&P > 30 days Chief Complaint: LTKA Allergies: Allergies Allergy/AdvReac Type Severity Reaction Status Date / Time No Known Allergies Allergy Verified 08/07/23 11:28 Plan I have reviewed the history and physical and performed a pertinent physical examination on my patient. No changes have occurred unless specified. Time Spent With Patient Time: Total time managing care of this patient today ____ minutes.
--- NOTE | 2023-08-13 09:15 | PM.OP ---
Brief Operative Note Date of Service: 08/13/23 Pre-op diagnosis: Left knee OA Post-op diagnosis: same Procedure: Left TKA Implants: Lisa [employer]athlon 07/26/18/a cemented Surgeon: Jerson Severino MD Anesthesia: regional and spinal Was an Cancer Genetic Counselor used for this Procedure?: Yes Cancer Genetic Counselor: Sofia Ren Estimated blood loss (mL): 20 Tourniquet time (min): 60 IV fluids (mL): 800 Pathology: other Condition: stable Disposition: PACU
--- NOTE | 2023-08-13 09:45 | P.OP_ITS ---
Operative Note Operative Note Date of Service: 08/13/23 Narrative: Date of Service: 08/13/23 Pre-op diagnosis: Left knee OA Post-op diagnosis: same Procedure: Left TKA Implants: [place] [employer] 07/26/TS/29a cemented Surgeon: Jerson Severino MD Anesthesia: regional and spinal Was an [facility] used for this Procedure?: Yes [facility]: [facility] Estimated blood loss (mL): 20 Tourniquet time (min): 60 IV fluids (mL): 800 Pathology: other Condition: stable Disposition: PACU Procedure in detail: The patient was brought to the operating room and prepped and draped in standard sterile fashion. A time-out was called to identify proper site proper procedure proper surgeon and IV antibiotics were administered. 1 g of IV TXA was administered. I began by making a midline incision to the retinaculum and performed a medial parapatellar arthrotomy. The patella was translated laterally and the knee was flexed up. The medial compartment was eburnated and there was ~10 deg varus deformity. I performed a small medial peel and resected the infrapatellar fat pad. Massac's line was then used to drill my intramedullary femoral guide and my distal femur cut of 10 mm was made in 5 degrees of valgus while protecting the soft tissues. I then measured a # 3 femur and placed my cutting guide and made my anterior posterior and chamfer cuts protecting the soft tissues at all times. I then made my box but removing the PCL. Once I was satisfied with my cuts I turned my attention to the tibia. I removed the meniscus medially and laterally and , using an external cutting guide, in line with the tibial crest and the third ray, I made my distal tibial cut in 0 deg slope of while protecting the posterior soft tissues at all times. An extension block was used to confirm appropriate amount of bony resection. I then sized a #3 tibia and once I was satisfied that there was complete tibial coverage I placed my trial and with the trial femur in place took the knee through range of motion. I was satisfied with the extension and flexion as well as the balance at 0, 30 and 90 degrees. I then turned my attention to the patella where I removed 1 cm from the undersurface of the patella and then trialed a 29a patellar button. Again the knee was taken through range of motion I was satisfied with the tracking. I then prepared the tibia with a drill and punch. A femoral bone plug was placed and the knee was irrigated copiously. I then cemented the patella, tibia and femur in standard fashion. Axial compression and a clamp were used while the cement dried. Once the cement was hard on the back table all excess cement was removed and I trialed different inserts until I selected a #[id number] insert. The final insert was placed and local TXA was administered. A Werewolf cautery wand was used to maintain hemostasis over the capsule and meniscal beds, the gutters and peripatellar soft tissues. The knee was then closed with a running Quill suture, a 3 0 Vicryl and radha on the skin. Patient was then placed in sterile dressing and brought to recovery room in stable condition there were no known complications.
[2023-08-13] MEDS: Celecoxib 200 MG CAPSULE PO ×2 (11:11→20:14)
[2023-08-13] MEDS: oxyCODONE HCl ER 10 MG TAB.ER.12H PO ×2 (11:11→20:14)
[2023-08-13] MEDS: Docusate Sodium 100 MG CAPSULE PO ×2 (11:11→20:14)
--- NOTE | 2023-08-13 11:40 | PHA.MEDREC ---
Pharmacy Consult ? Medication Reconciliation Pharmacy has completed the medication reconciliation. RN completed, pharmacy doubled check and spoke with patient to confirm two medications (amlodipine and HCTZ).
[2023-08-13] MEDS: Gabapentin 300 MG CAPSULE PO ×2 (12:23→20:14)
[2023-08-13] MEDS: DULoxetine HCl 60 MG CAPSULE.DR PO (12:24)
[2023-08-13] MEDS: Omeprazole 20 MG CAPSULE.DR PO (12:24)
[2023-08-13] MEDS: Atorvastatin Calcium 20 MG TABLET PO (12:24)
[2023-08-13] MEDS: oxyCODONE HCl Immed Release 5 MG TABLET PO (13:36)
[2023-08-13] MEDS: ceFAZolin Sodium/Dextrose,Iso 2 GM/50 ML PIGGYBACK IV (13:36)
--- NOTE | 2023-08-13 17:09 | P.CONHOSP_ITS ---
History of Present Illness Data of Consult Service Date: 08/13/23 Requesting physician: Jerson Severino Primary Care Provider: MD ARY Mckee Reason for consult: Medical management for diabetes mellitus 68-year-old female with past medical history significant for type 2 diabetes mellitus, hypertension, hyperlipidemia, GERD, bipolar disorder, class 2 obesity admitted to Orthopedic surgery for elective left total knee arthroplasty, postprocedure patient is resting comfortably denies pain, tolerated breakfast with no nausea, no vomiting, no abdominal pain, no diarrhea, denies chest pain, no palpitation, no shortness of breath no lightheadedness, no dizziness, receiving IV fluids. Review of Systems Review of Systems: General no headache, no dizziness no fever chills. CVS no chest pain, no palpitation. Respiratory no cough no sob Gastrointestinal no nausea ,no vomiting, no abdominal pain no urinary urgency, no frequency Skin no rash, no itching All other system reviewed and negative PMFSH Medical History Diabetes Numbness Age-related osteoporosis without current pathological fracture Knee pain, bilateral Left leg pain Annual physical exam Preop exam for internal medicine Cataract BMI 37.0-37.9, adult Bipolar 2 disorder Arthritis Diverticulosis BMI 38.0-38.9,adult Obesity Carpal tunnel syndrome Hypercholesterolemia Anxiety Hypertension Insomnia Vitamin D deficiency GERD (gastroesophageal reflux disease) Fibromyalgia Family History Father Hypertension CVD (cardiovascular disease) Cancer Mother Hypertension Diabetes Maternal Aunt Colon cancer Father No problems noted. Sister Diabetes Sister Diabetes Sister Diabetes Brother Diabetes Son No problems noted. Son No problems noted. Surgical History History of cataract surgery H/O ovarian cystectomy History of colonoscopy History of discectomy History of carpal tunnel release History of tonsillectomy History of cholecystectomy History of appendectomy Social History Household Members: Spouse Housing: House Are you a primary resident care technician to a significant other at home: No Do you presently have visiting nurse or other home services: No Alcohol intake: current Alcohol intake frequency: does not drink Patient Tobacco Use Status: Never used Tobacco e-Cigarette/Vaping Use: Never Used Second Hand Smoke Exposure: No Use of substances other than those prescribed or required for medical reasons: No Have you been hit, kicked, punched, or otherwise hurt by someone within the past year? If so, by whom?: No Do you feel safe in your current relationship?: Yes Is there a partner from a previous relationship who is making you feel unsafe now?: No Are you DNR?: No Advance Directives: No Advance Directives Information Provided: No Advance Directives on File: No Do you have thoughts of harming others: None Do you have a plan to hurt others: No Plan Recently lost weight without trying: No Eating poorly because of decreased appetite: No Nutrition Risks: No Nutritional Risk Patient : No : No Poor oral hygiene: No Current occupational status: employed Cognitive needs: No Hearing needs: No Vision needs: No Meds Allergies Allergy/AdvReac Type Severity Reaction Status Date / Time No Known Allergies Allergy Verified 08/07/23 11:28 Active Medications: Current Medications Acetaminophen (Acetaminophen 325 Mg Tablet) 650 mg PO Q6H PRN PRN Reason: Pain, Mild (Pain Scale 1-3) Alprazolam (Alprazolam 0.25 Mg Tablet) 0.25 mg PO BEDTIME PRN PRN Reason: anxiety Amlodipine Besylate (Amlodipine Besylate 2.5 Mg Tablet) 2.5 mg PO DAILY [facility] [place]; Protocol Aspirin (Aspirin 325 Mg Tablet) 325 mg PO Q12H [facility] Atorvastatin Calcium (Atorvastatin Calcium 20 Mg Tablet) 20 mg PO DAILY [facility] Last Admin: 08/13/23 12:24 Dose: 20 mg Celecoxib (Celecoxib 200 Mg Capsule) 200 mg PO BID [facility] Last Admin: 08/13/23 11:11 Dose: 200 mg Docusate Sodium (Docusate Sodium 100 Mg Capsule) 100 mg PO BID [facility] Last Admin: 08/13/23 11:11 Dose: 100 mg Duloxetine HCl (Duloxetine Hcl 60 Mg Capsule.Dr) 60 mg PO DAILY [facility] [place] Last Admin: 08/13/23 12:24 Dose: 60 mg Gabapentin (Gabapentin 300 Mg Capsule) 300 mg PO BID [facility] Last Admin: 08/13/23 12:23 Dose: 300 mg Hydromorphone HCl (Hydromorphone Hcl 0.5 Mg/0.5 Ml Syringe) 0.25 mg IVPUSH Q4H PRN; Protocol PRN Reason: Pain, Severe (Pain Scale 7-10) Lisinopril (Lisinopril 40 Mg Tablet) 40 mg PO DAILY [facility]; Protocol Melatonin (Melatonin 3 Mg Tablet) 9 mg PO BEDTIME PRN PRN Reason: Insomnia Metformin HCl (Metformin Hcl 1,000 Mg Tablet) 1,000 mg PO DAILY [facility] Last Admin: 08/13/23 12:21 Dose: Not Given Metoprolol Tartrate (Metoprolol Tartrate 100 Mg Tablet) 100 mg PO BID [facility]; Protocol Mirtazapine (Mirtazapine 7.5 Mg Tablet) 7.5 mg PO BEDTIME PRN PRN Reason: Insomnia Non-Formulary Medication (Semaglutide) 1 mg SUBCUT Q7D [facility] Omeprazole (Omeprazole 20 Mg Capsule.Dr) 20 mg PO DAILY@0630 [facility] Last Admin: 08/13/23 12:24 Dose: 20 mg Ondansetron HCl (Ondansetron Hcl 4 Mg/2 Ml Vial) 4 mg IVPUSH Q8H PRN PRN Reason: Nausea and Vomiting Oxycodone HCl (Oxycodone Hcl Immed Release 5 Mg Tablet) 5 mg PO Q4H PRN PRN Reason: Pain, Moderate(Pain Scale 4-6) Last Admin: 08/13/23 13:36 Dose: 5 mg Oxycodone HCl (Oxycodone Hcl Er 10 Mg Tab.Er.12h) 10 mg PO BID [facility] Last Admin: 08/13/23 11:11 Dose: 10 mg Sodium Chloride (0.9 % Sodium Chloride Flush 3 Ml Syringe) 3 ml IVFLUSH QSHIFT [facility] Last Admin: 08/13/23 16:24 Dose: Not Given Home Medications Medication Instructions Recorded Confirmed Last Taken Type melatonin 10 mg capsule 10 mg PO BEDTIME PRN Insomnia 10/04/20 08/06/23 08/12/23 History metformin 1,000 mg tablet 1,000 mg PO DAILY 06/30/23 08/06/23 08/12/23 History mirtazapine 7.5 mg tablet 7.5 mg PO BEDTIME PRN Insomnia 08/05/23 08/06/23 Unknown History amlodipine 2.5 mg tablet 2.5 mg PO DAILY 08/13/23 08/13/23 Unknown History hydrochlorothiazide 25 mg tablet 25 mg PO DAILY 08/13/23 08/13/23 Unknown History Physical Exam Vital Signs and Narrative: Vital Signs: Last Vital Signs Temp 96.8 F 08/13/23 15:22 Pulse 77 08/13/23 15:22 Resp 18 08/13/23 15:22 BP 141/68 H 08/13/23 15:22 Pulse Ox 95 08/13/23 15:22 O2 Del Method Room Air 08/13/23 15:22 O2 Flow Rate 2 08/13/23 10:45 BMI result Body Mass Index 38.4 Const: Other: General resting comfortably, in no acute distress. Anicteric sclera Neck supple no JVD. CVS regular rate rhythm, Respiratory lungs clear to auscultation, no respiratory distress, no wheeze, no rhonchi. Gastrointestinal abdomen soft, non tender, bowel sounds audible. Extremities no edema. Left knee dressing in place Neuro non focal Skin no rash Results Labs Labs: Laboratory Results - last 24 hr 08/13/23 07:04 POC Glucose 172 H Imaging Radiologist's Impressions: Impressions Knee X-Ray 08/13/23 13:34 IMPRESSION: * Status post total knee arthroplasty in anatomic alignment with expected postsurgical change. No evidence of hardware failure or complication. Assessment and Plan (1) Obesity: Qualifiers: Obesity type: due to excess calories Obesity classification: adult class 3 (BMI >= 40) Serious obesity comorbidity presence: with serious comorbidity Body mass index: BMI 40.0-44.9 Qualified Code(s): E66.01 - Morbid (severe) obesity due to excess calories; Z68.41 - Body mass index [BMI]40.0- 44.9, adult Status: Acute (2) Hypercholesterolemia: Status: Acute (3) Hypertension: Qualifiers: Hypertension type: essential hypertension Qualified Code(s): I10 - Essential (primary) hypertension Status: Acute (4) Type 2 diabetes mellitus with hyperglycemia: Qualifiers: Diabetes mellitus alf insulin use: without alf use Qualified Code(s): E11.65 - Type 2 diabetes mellitus with hyperglycemia Status: Acute Plan 68-year-old female patient with past medical history significant for diabetes mellitus type 2, history of hypertension, hyperlipidemia , class 2 obesity admitted to Orthopedic surgery for elective left total knee arthroplasty. Left total knee arthroplasty POD # 0 Good pain control continue OxyContin, Celebrex and as needed Dilaudid as per ortho Follow CBC Continue stool softeners, encourage incentive spirometry and physical therapy Good by mouth intake, will DC IV fluids Hypertension Stable blood pressure will resume all home medications including lisinopril, amlodipine and beta-blockers will hold hydrochlorothiazide, follow BP closely Class 2 obesity due to excess calories recommend low-calorie diet and exercise Diabetes mellitus type 2 with hyperglycemia continue metformin/resume semaglutide as outpatient, diabetic diet, monitor blood sugar and insulin sliding scale. Hyperlipidemia continue Lipitor 20 mg at bedtime GERD continue PPI DVT prophylaxis on aspirin 325 b.i.d. Disposition as per ortho Thank you for allowing us to participate in the care of this patient will continue to follow along with you.
--- NOTE | 2023-08-13 18:15 | PC.NURSE ---
Patient walked to the bathroom, able to void
[2023-08-13] MEDS: HYDROmorphone HCl 0.5 MG/0.5 ML SYRINGE 0.25 MG IVPUSH ×2 (18:17→23:10)
[2023-08-13 20:56] LABS: Glucose, Whole Blood 237 mg/dL (60-115)
[2023-08-13] MEDS: Insulin Lispro 100 UNIT/ML 3 ML VIAL SUBCUT (21:11)
[2023-08-13] MEDS: 0.9 % Sodium Chloride Flush 3 ML SYRINGE IVFLUSH (22:31)
[2023-08-13] MEDS: Mirtazapine 7.5 MG TABLET PO (23:57)
[2023-08-14] MEDS: HYDROmorphone HCl 0.5 MG/0.5 ML SYRINGE 0.25 MG IVPUSH ×3 (03:42→18:29)
[2023-08-14 04:00] VITALS: BP 134/65; PULSE 82; RESP 16; TEMP 36.4; O2SAT 96
[2023-08-14] MEDS: Omeprazole 20 MG CAPSULE.DR PO (05:29)
[2023-08-14 06:52] LABS: MANUAL DIFF FLAG NO
[2023-08-14 07:09] LABS: Basophils Percent Auto 0.3 % (0-2); Eosinophils Percent Auto 0.2 % (0-4); Hematocrit 36.6 % (37.0-47.0); Hemoglobin 12.3 g/dl (12.0-16.0); Imm Gran Pct Auto 0.8 % (0.0-0.4); Lymphocytes Absolute Auto 1.4 X10*3/uL (1.2-4.9); Lymphocytes Percent Auto 11.1 % (20-40); Mean Corpuscular HGB Conc 33.6 g/dl (31.0-35.0); Mean Corpuscular Hemoglobin 29.9 pg (27.0-33.0); Mean Corpuscular Volume 88.8 fL (80.0-98.0); Monocytes Absolute Auto 1.1 X10*3/uL (0.1-1.2); Monocytes Percent Auto 8.8 % (2-11); Neutrophils Absolute Auto 9.6 x10*3/uL (2.0-8.3); Neutrophils Percent Auto 78.8 % (45-73); Platelet Count 184 X10*3/uL (160-400); Red Blood Count 4.12 X10*6/uL (4.20-5.50); Red Cell Distribution Width 13.3 % (11.0-16.0); White Blood Count 12.2 X10*3/uL (4.8-10.8)
[2023-08-14 07:12] VITALS: BP 146/68; PULSE 77; RESP 18; TEMP 36.3; O2SAT 97
[2023-08-14 07:17] LABS: Anion Gap 12 (12-20); Blood Urea Nitrogen 23 mg/dL (9-16); Calcium 9.1 mg/dL (8.4-10.2); Carbon Dioxide 26 mmol/L (22-29); Chloride 105 mmol/L (96-108); Creatinine Clr Calc Pharmacy 67.3; Estimated Glomerular Filt Rate > 60; Glucose Fasting 127 mg/dL (60-99); Potassium 4.6 mmol/L (3.3-5.1); Sodium 138 mmol/L (135-145)
[2023-08-14] MEDS: oxyCODONE HCl Immed Release 5 MG TABLET PO ×3 (07:22→22:29)
[2023-08-14 07:23] LABS: Glucose, Whole Blood 133 mg/dL (60-115)
[2023-08-14 08:30] VITALS: O2SAT 97
[2023-08-14] MEDS: amLODIPine Besylate 2.5 MG TABLET PO (09:17)
[2023-08-14] MEDS: Gabapentin 300 MG CAPSULE PO ×2 (09:17→19:00)
[2023-08-14] MEDS: metFORMIN HCl 1,000 MG TABLET 1000 MG PO (09:17)
[2023-08-14] MEDS: DULoxetine HCl 60 MG CAPSULE.DR PO (09:17)
[2023-08-14] MEDS: Metoprolol Tartrate 100 MG TABLET PO ×2 (09:17→19:00)
[2023-08-14] MEDS: oxyCODONE HCl ER 10 MG TAB.ER.12H PO ×2 (09:17→18:59)
[2023-08-14] MEDS: Celecoxib 200 MG CAPSULE PO ×2 (09:18→19:00)
[2023-08-14] MEDS: Atorvastatin Calcium 20 MG TABLET PO (09:18)
[2023-08-14] MEDS: Aspirin 325 MG TABLET PO ×2 (09:18→19:00)
[2023-08-14] MEDS: Docusate Sodium 100 MG CAPSULE PO ×2 (09:18→19:00)
[2023-08-14] MEDS: lisinopriL 40 MG TABLET PO (09:18)
[2023-08-14] MEDS: 0.9 % Sodium Chloride Flush 3 ML SYRINGE IVFLUSH (09:20)
[2023-08-14 09:35] LABS: Creatinine Clr Calc Pharmacy 60.9; Estimated Glomerular Filt Rate 60
--- NOTE | 2023-08-14 09:53 | MHC.CM.PN ---
Addendum entered by Jeanne Mejia RN 08/14/23 14:20: [facility] has accepted patient, but do not have PT availability until Thursday 08/17. Ortho PA aware and agreeable. CM will continue to follow. Original Note: PATIENT IS FROM HOME W/ DISABLED . AMBULATES W/ A CANE, INDEPENDENT W/ ADL'S. DENIES USE OF SERVICES. PCP - SYEDA JOHNSON MD HCP - PATIENT COMPLETED HCP NAMING AGENTS 1) NANI, 2) SON BRUCE [phone] DP: PT REC HOME W/ SERVICES. PATIENT DOES NOT HAVE AN AGENCY PREFERENCE. REFERRALS PLACED IN [facility]. CM WILL CONTINUE TO FOLLOW.
--- NOTE | 2023-08-14 10:07 | P.PNOP_ITS ---
Subjective Subjective Date of Service: 08/14/23 Interval history: POD 1 s/p LT TKA no overnight events resting in bed, she has been out of bed walking with PT Physical Exam Vital Signs: Vital Signs: Last Vital Signs Temp 97.4 F 08/14/23 07:12 Pulse 77 08/14/23 07:12 Resp 18 08/14/23 07:12 BP 146/68 H 08/14/23 07:12 Pulse Ox 97 08/14/23 08:30 O2 Del Method Room Air 08/14/23 08:30 O2 Flow Rate 2 08/13/23 10:45 BMI result Body Mass Index 38.4 Const: General: cooperative, healthy appearing and no acute distress Resp: Effort & Inspection: normal respiratory effort and able to speak in complete sentences Cardio: Rate: regular rate Peripheral pulses: Peripheral pulses 2+ throughout GI: Palpation (GI): Soft to palpation Skin: General skin exam: no rashes or lesions noted Extrem: Other: bandage clean dry and intact. Hitchcock intact. No erythema or joint effusion. Calf supple nontender. Neurovascularly intact. Procedures Date of Service Date of Service: 08/14/23 Progress Note: A&P Assessment and plan (1) Status post total left knee replacement: Status: Acute Assessment and Plan: * Continue pain mgmnt * Begin Aspirin for dvt ppx * begin PT for LT TKA * Dispo planning-Pending PT eval, pain mgmnt Need for continued inpatient stay:PT eval Time Spent With Patient Time: Total time managing care of this patient today ____ minutes. Quality Stroke Does the patient have a stroke diagnosis?: No VTE Prior VTE?: No VTE Risk Level:: Surgical - very high VTE Device Contraindication: N/A - Device Ordered VTE Drug Contraindication: N/A - Med Ordered
--- NOTE | 2023-08-14 11:10 | P.PNIM_ITS ---
Subjective Subjective Date of Service: 08/14/23 Interval History: Complaining of left leg pain after working with physical therapy, seems motivated doing [id number] exercises in bed. Denies acute complaints of nausea, no vomiting, no abdominal pain, no bowel movement in last 24 hours, denies shortness of breath, no cough, no chest pain, no lightheadedness or dizziness. Review of Systems All other system reviewed and negative. Physical Exam 2 Vital Signs: Vital Signs: Last Vital Signs Temp 97.4 F 08/14/23 07:12 Pulse 77 08/14/23 07:12 Resp 18 08/14/23 07:12 BP 146/68 H 08/14/23 07:12 Pulse Ox 97 08/14/23 08:30 O2 Del Method Room Air 08/14/23 08:30 O2 Flow Rate 2 08/13/23 10:45 BMI result Body Mass Index 38.4 Const: Other: General resting comfortably, in no acute distress. Anicteric sclera Neck supple no JVD. CVS regular rate rhythm, Respiratory lungs clear to auscultation, no respiratory distress, no wheeze, no rhonchi. Gastrointestinal abdomen soft, non tender, bowel sounds audible. Extremities no right lower extremity edema. Left knee dressing in place/mild swelling left leg. Neuro non focal Skin no rash Objective Data Active Medications Acetaminophen (Acetaminophen 325 Mg Tablet) 650 mg PO Q6H PRN PRN Reason: Pain, Mild (Pain Scale 1-3) Alprazolam (Alprazolam 0.25 Mg Tablet) 0.25 mg PO BEDTIME PRN PRN Reason: anxiety Amlodipine Besylate (Amlodipine Besylate 2.5 Mg Tablet) 2.5 mg PO DAILY [facility]; Protocol Last Admin: 08/14/23 09:17 Dose: 2.5 mg Documented By: PEARL Aspirin (Aspirin 325 Mg Tablet) 325 mg PO Q12H [facility] Last Admin: 08/14/23 09:18 Dose: 325 mg Documented By: PEARL Atorvastatin Calcium (Atorvastatin Calcium 20 Mg Tablet) 20 mg PO DAILY [facility] Last Admin: 08/14/23 09:18 Dose: 20 mg Documented By: PEARL Celecoxib (Celecoxib 200 Mg Capsule) 200 mg PO BID [facility] Last Admin: 08/14/23 09:18 Dose: 200 mg Documented By: PEARL Dextrose (Dextrose 50 % 25 Gm/50 Ml Syringe) 25 gm IVPUSH Q15M PRN; Protocol PRN Reason: per Hypoglycemia Standing Ord. Docusate Sodium (Docusate Sodium 100 Mg Capsule) 100 mg PO BID [facility] Last Admin: 08/14/23 09:18 Dose: 100 mg Documented By: PEARL Duloxetine HCl (Duloxetine Hcl 60 Mg Capsule.Dr) 60 mg PO DAILY [facility] Last Admin: 08/14/23 09:17 Dose: 60 mg Documented By: PEARL Gabapentin (Gabapentin 300 Mg Capsule) 300 mg PO BID [facility] Last Admin: 08/14/23 09:17 Dose: 300 mg Documented By: PEARL Glucose (Glucose Gel 15 Gm Gel..Gram.) 15 gm PO Q15M PRN; Protocol PRN Reason: per Hypoglycemia Standing Ord. Hydromorphone HCl (Hydromorphone Hcl 0.5 Mg/0.5 Ml Syringe) 0.25 mg IVPUSH Q4H PRN; Protocol PRN Reason: Pain, Severe (Pain Scale 7-10) Last Admin: 08/14/23 03:42 Dose: 0.25 mg Documented By: ALEXANDRA Insulin Human Lispro (Insulin Lispro 100 Unit/Ml 3 Ml Vial) 0 unit SUBCUT QIDACHS [facility]; Protocol Last Admin: 08/14/23 07:51 Dose: Not Given Documented By: PEARL Non-Admin Reason: No Insulin Coverage Lisinopril (Lisinopril 40 Mg Tablet) 40 mg PO DAILY [facility]; Protocol Last Admin: 08/14/23 09:18 Dose: 40 mg Documented By: PEARL Melatonin (Melatonin 3 Mg Tablet) 9 mg PO BEDTIME PRN PRN Reason: Insomnia Metformin HCl (Metformin Hcl 1,000 Mg Tablet) 1,000 mg PO DAILY [facility] Last Admin: 08/14/23 09:17 Dose: 1,000 mg Documented By: PEARL Metoprolol Tartrate (Metoprolol Tartrate 100 Mg Tablet) 100 mg PO BID [facility]; Protocol Last Admin: 08/14/23 09:17 Dose: 100 mg Documented By: PEARL Mirtazapine (Mirtazapine 7.5 Mg Tablet) 7.5 mg PO BEDTIME PRN PRN Reason: Insomnia Last Admin: 08/13/23 23:57 Dose: 7.5 mg Documented By: ALEXANDRA Non-Formulary Medication (Semaglutide) 1 mg SUBCUT Q7D [facility] Omeprazole (Omeprazole 20 Mg Capsule.Dr) 20 mg PO DAILY@0630 [facility] Last Admin: 08/14/23 05:29 Dose: 20 mg Documented By: ALEXANDRA Ondansetron HCl (Ondansetron Hcl 4 Mg/2 Ml Vial) 4 mg IVPUSH Q8H PRN PRN Reason: Nausea and Vomiting Oxycodone HCl (Oxycodone Hcl Immed Release 5 Mg Tablet) 5 mg PO Q4H PRN PRN Reason: Pain, Moderate(Pain Scale 4-6) Last Admin: 08/14/23 07:22 Dose: 5 mg Documented By: PEARL Oxycodone HCl (Oxycodone Hcl Er 10 Mg Tab.Er.12h) 10 mg PO BID [facility] Last Admin: 08/14/23 09:17 Dose: 10 mg Documented By: PEARL Sodium Chloride (0.9 % Sodium Chloride Flush 3 Ml Syringe) 3 ml IVFLUSH QSHIFT [facility] Last Admin: 08/14/23 09:20 Dose: 3 ml Documented By: PEARL Labs 08/14/23 05:28 08/14/23 08:40 Labs: Laboratory Results - last 24 hr 08/13/23 08/14/23 08/14/23 20:35 05:28 07:16 MCV 88.8 MCH 29.9 MCHC 33.6 RDW 13.3 Plt Count 184 MPV 12.0 Immature Gran % (Auto) 0.8 H Neut % (Auto) 78.8 H Lymph % (Auto) 11.1 L [place] % (Auto) 8.8 Eos % (Auto) 0.2 Baso % (Auto) 0.3 Lymph # (Auto) 1.4 [place] # (Auto) 1.1 Eos # (Auto) 0.0 Baso # (Auto) 0.0 Abs Immat Gran (auto) 0.10 H Absolute Neuts (auto) 9.6 H Absolute Nucleated RBC 0.000 Nucleated RBC % (auto) 0.0 Anion Gap 12 Estim Creat Clear Calc 67.3 Estimated GFR > 60 POC Glucose 237 H 133 H Fasting Glucose 127 H Calcium 9.1 08/14/23 08:40 MCV MCH MCHC RDW Plt Count MPV Immature Gran % (Auto) Neut % (Auto) Lymph % (Auto) [place] % (Auto) Eos % (Auto) Baso % (Auto) Lymph # (Auto) [place] # (Auto) Eos # (Auto) Baso # (Auto) Abs Immat Gran (auto) Absolute Neuts (auto) Absolute Nucleated RBC Nucleated RBC % (auto) Anion Gap Estim Creat Clear Calc 60.9 Estimated GFR 60 POC Glucose Fasting Glucose Calcium Assessment and Plan (1) Osteoarthritis of left knee: Status: Acute (2) Obesity: Status: Acute (3) Hypercholesterolemia: Status: Acute (4) Hypertension: Status: Acute Plan Her Ca non fatigue 68-year-old female patient with past medical history significant for diabetes mellitus type 2, history of hypertension, hyperlipidemia , class 2 obesity admitted to Orthopedic surgery for elective left total knee arthroplasty. Left total knee arthroplasty POD # 1 Good pain control continue OxyContin, Celebrex and as needed Dilaudid as per ortho Mild leukocytosis likely reactive, no fevers negative review of system Hematocrit stable Continue stool softeners, incentive spirometry and physical therapy Hypertension Stable blood pressure continue all home medications including lisinopril, amlodipine and beta-blockers , will resume hydrochlorothiazide, follow BP closely Class 2 obesity due to excess calories recommend low-calorie diet and exercise Diabetes mellitus type 2 with hyperglycemia blood sugars stable 133 this morning, continue metformin/resume semaglutide as outpatient, diabetic diet, monitor blood sugar and insulin sliding scale. Hyperlipidemia continue Lipitor 20 mg at bedtime GERD continue PPI DVT prophylaxis on aspirin 325 b.i.d. Disposition as per ortho Will sign off please reconsult with any questions. Quality Stroke Does the patient have a stroke diagnosis?: No VTE Prior VTE?: No VTE Risk Level:: Surgical - very high VTE Device Contraindication: N/A - Device Ordered VTE Drug Contraindication: N/A - Med Ordered
[2023-08-14 11:24] LABS: Glucose, Whole Blood 157 mg/dL (60-115)
[2023-08-14] MEDS: Insulin Lispro 100 UNIT/ML 3 ML VIAL SUBCUT (11:49)
--- NOTE | 2023-08-14 15:05 | HO.POSTANES ---
Post Anesthesia Evaluation Post Anesthesia Evaluation Date of Service: 08/14/23 Vital Signs: Vital Signs Temp Pulse Resp BP Pulse Ox O2 Del Method 08/14/23 08:30 97 Room Air 08/14/23 07:12 97.4 F 77 18 146/68 H 97 Room Air 08/14/23 04:00 97.5 F 82 16 134/65 96 Room Air Anesthesia: Spinal and Nerve Block Mental Status: Awake Pain Control: Satisfactory Nausea/Vomiting: None Hydration: Adequate Anesthesia-Related Issues: No Anes. Related Issues
[2023-08-14 15:17] VITALS: BP 111/57; PULSE 82; RESP 20; TEMP 36.4; O2SAT 97
--- NOTE | 2023-08-14 15:36 | P.DS_ITS ---
DS: Providers Provider Date of Service: 08/15/23 Date of admission: 08/13/23 06:17 Primary care physician: Lesly Pinto MD Consults: 08/13/23 10:37 Consult to Hospitalist Routine Comment: Consulting Provider: Hospitalist Reason For Exam: Routine medical management DS: Diagnosis Discharge Diagnosis (1) Osteoarthritis of left knee: Status: Acute (2) Obesity: Status: Acute (3) Hypercholesterolemia: Status: Acute (4) Hypertension: Status: Acute DS: Summary Hospital Course Hospital Course: The patient underwent a successful left total knee arthroplasty, they were transferred to PACU and then to the floor to recover. During their stay, their vitals were stable, afebrile at 97.5. Labs were unremarkable, H/H 11.8/35.8. POD 1 they were started on Aspirin 325mg po bid for DVT ppx, they also received Physical Therapy services twice a day. Prior to discharge, their dressing was changed, incision clean dry and intact, new Aquacel dressing applied and the plan was to be discharged home with VNA services. Time Attestation Discharge Coordination Time (in mins): 30 Quality: Safe Use of Opioids Does Pt have an Active Cancer Diagnosis on the Problem List?: No Quality: Stroke Does the patient have a stroke diagnosis?: No Physical Exam Vital Signs: Vital Signs: Last Vital Signs Temp 97.6 F 08/14/23 15:17 Pulse 82 08/14/23 15:17 Resp 20 08/14/23 15:17 BP 111/57 L 08/14/23 15:17 Pulse Ox 97 08/14/23 15:17 O2 Del Method Room Air 08/14/23 15:17 O2 Flow Rate 2 08/13/23 10:45 BMI result Body Mass Index 38.4 Const: General: cooperative, healthy appearing and no acute distress Resp: Effort & Inspection: normal respiratory effort and able to speak in complete sentences Cardio: Rate: regular rate Peripheral pulses: Peripheral pulses 2+ throughout GI: Palpation (GI): Soft to palpation Skin: General skin exam: no rashes or lesions noted Extrem: Other: Left knee bandage clean dry and intact. Sharona intact. No erythema or joint effusion. Calf supple nontender. Neurovascularly intact. DS: Data Data Completed and Pending Pending studies at discharge: Pending at discharge 08/13/23 09:00 Surgical [PTH] Routine Labs on day of discharge: Laboratory Results - last 24 hr 08/13/23 08/14/23 08/14/23 20:35 05:28 07:16 WBC 12.2 H RBC 4.12 L Hgb 12.3 Hct 36.6 L MCV 88.8 MCH 29.9 MCHC 33.6 RDW 13.3 Plt Count 184 MPV 12.0 Immature Gran % (Auto) 0.8 H Neut % (Auto) 78.8 H Lymph % (Auto) 11.1 L [place] % (Auto) 8.8 Eos % (Auto) 0.2 Baso % (Auto) 0.3 Lymph # (Auto) 1.4 [place] # (Auto) 1.1 Eos # (Auto) 0.0 Baso # (Auto) 0.0 Abs Immat Gran (auto) 0.10 H Absolute Neuts (auto) 9.6 H Absolute Nucleated RBC 0.000 Nucleated RBC % (auto) 0.0 Sodium 138 Potassium 4.6 Chloride 105 Carbon Dioxide 26 Anion Gap 12 BUN 23 H Creatinine 0.85 Estim Creat Clear Calc 67.3 Estimated GFR > 60 POC Glucose 237 H 133 H Fasting Glucose 127 H Calcium 9.1 08/14/23 08/14/23 08:40 11:19 WBC RBC Hgb Hct MCV MCH MCHC RDW Plt Count MPV Immature Gran % (Auto) Neut % (Auto) Lymph % (Auto) [place] % (Auto) Eos % (Auto) Baso % (Auto) Lymph # (Auto) [place] # (Auto) Eos # (Auto) Baso # (Auto) Abs Immat Gran (auto) Absolute Neuts (auto) Absolute Nucleated RBC Nucleated RBC % (auto) Sodium Potassium Chloride Carbon Dioxide Anion Gap BUN Creatinine 0.94 Estim Creat Clear Calc 60.9 Estimated GFR 60 POC Glucose 157 H Fasting Glucose Calcium Discharge Plan Discharge Anticipated Discharge Date/Time: 08/15/23 12:38 Patient Disposition: Home Health Service Discharge Diagnosis: s/p LTKA Referrals: Elin Peace PA-C [Physician Metal Sheet Roller Operator] - 2 Weeks (08/28/23 11:30 [facility] Orthopedic Surgeons Elin Peace PA-C ) Discharge Medications: New docusate sodium 100 mg Capsule 100 mg PO BID 14 Days Qty: 28 0RF celecoxib 200 mg Capsule 200 mg PO BID 30 Days Qty: 60 0RF aspirin 325 mg Tablet 325 mg PO Q12H 42 Days Qty: 84 0RF oxycodone 5 mg Tablet 5 mg PO Q4H PRN (Reason: Pain, Moderate(Pain Scale 4-6)) 7 Days Qty: 42 0RF Rx Instructions: Partial Fill upon patient request. acetaminophen 325 mg Tablet 650 mg PO Q6H PRN (Reason: Pain, Mild (Pain Scale 1-3)) 30 Days Qty: 240 0RF Continued alprazolam 0.25 mg tablet 0.25 mg PO BEDTIME PRN (Reason: anxiety) Qty: 10 0RF mirtazapine 7.5 mg tablet 7.5 mg PO BEDTIME PRN (Reason: Insomnia) amlodipine 2.5 mg tablet 2.5 mg PO DAILY hydrochlorothiazide 25 mg tablet 25 mg PO DAILY melatonin 10 mg capsule 10 mg PO BEDTIME PRN (Reason: Insomnia) duloxetine [Cymbalta] 60 mg capsule,delayed release(DR/EC) 60 mg PO DAILY 90 Days Qty: 90 2RF lisinopril 40 mg tablet 40 mg PO DAILY Qty: 90 3RF metformin 1,000 mg tablet 1,000 mg PO DAILY semaglutide 1 mg/dose (4 mg/3 mL) pen injector 1 mg subcut QWEEK 30 Days Qty: 3.75 3RF Patient Comments: patient takes on Sundays Rx Instructions: for 4 doses omeprazole 20 mg capsule,delayed release(DR/EC) 20 mg PO DAILY 90 Days Qty: 90 3RF atorvastatin 20 mg tablet 20 mg PO DAILY 90 Days Qty: 90 1RF metoprolol tartrate 100 mg tablet 100 mg PO BID 90 Days Qty: 180 2RF (DME) blood-glucose meter [FreeStyle Lite Meter] Kit See Rx Instructions .ROUTE .MEDSUPPLY Qty: 1 0RF Rx Instructions: As directed (DME) FreeStyle Lite Strips Strip See Rx Instructions .ROUTE .MEDSUPPLY Qty: 100 3RF Rx Instructions: As directed check the BS QD (DME) lancets [FreeStyle Lancets] 28 gauge misc See Rx Instructions .ROUTE .MEDSUPPLY Qty: 100 3RF Rx Instructions: As directed check BS QD gabapentin 300 mg capsule 300 mg PO BID Qty: 180 0RF Discharge Orders: Discharge Order (Routine); Ordered 08/15/23 Ordered By: Sofia Ren Diet: Regular diet Activity on Discharge: Use cane or walker Stand Alone Forms: Patient Portal Discharge page Care Plan Goals: Restore function of joint Health Concerns: none Plan of Treatment: Physical Therapy Pain management DVT prophylaxis Assessment: Physical Therapy for Total knee arthroplasty: WBAT, gait training, ROM 0-12, quad strength * Limit stair climbing * No showering, no tub bath-keep dressing clean, dry and intact * No driving x6 weeks * Continue Aspirin twice a day x 6 weeks * Follow up with [facility] Orthopedics in 2 weeks
--- NOTE | 2023-08-14 15:37 | W.MHC.F2F ---
Service Date Service Date: 08/14/23 Encounter Date of encounter: 08/15/23 Reasons for Services Signs and symptoms assessed: s/p LTKA. Pt. is considered homebound due to recent surgery. Unable to drive, poor balance, poor gait mechanics. Reason for physical therapy: home safety and mobility, therapeutic exercises, restore joint function, gait/transfer training, assess need for DME and ADL training Homebound: Leaving the home is medically contraindicated at this time without the asist of a device and/or another person due th the listed conditions above and below. Reason homebound: unsteady gait / fall risk, leg weakness, pain with ambulation, pain with transfers, poor balance / fall risk and unable to drive Certification: Based on the above findings, I certify that this patient is confined to the home and needs intermittent fpc care, physical therapy and/or speech therapy, or continues to need occupational therapy. The patient is under my care, and I have initiated the establishment of the plan of care. The patient will be followed by a physician who will periodically review the plan of care. Time Spent With Patient Time: Total time managing care of this patient today ____ minutes.
[2023-08-14 16:21] LABS: Glucose, Whole Blood 99 mg/dL (60-115)
[2023-08-14 19:37] VITALS: BP 118/62; PULSE 69; RESP 18; TEMP 36.8; O2SAT 97
[2023-08-14 20:16] LABS: Glucose, Whole Blood 127 mg/dL (60-115)
[2023-08-15] MEDS: oxyCODONE HCl Immed Release 5 MG TABLET PO ×2 (02:39→09:02)
[2023-08-15] MEDS: Acetaminophen 325 MG TABLET 650 MG PO (02:39)
[2023-08-15 03:23] VITALS: BP 138/61; PULSE 72; RESP 18; TEMP 36.7; O2SAT 95
[2023-08-15] MEDS: Omeprazole 20 MG CAPSULE.DR PO (05:39)
[2023-08-15 07:00] LABS: MANUAL DIFF FLAG NO
[2023-08-15 07:13] LABS: Basophils Absolute Auto 0.1 X10*3/uL (0.0-0.2); Basophils Percent Auto 0.8 % (0-2); Eosinophils Absolute Auto 0.3 X10*3/uL (0.0-0.4); Eosinophils Percent Auto 3.1 % (0-4); Hematocrit 35.8 % (37.0-47.0); Hemoglobin 11.8 g/dl (12.0-16.0); Imm Gran Abs Auto 0.06 X10*3/uL (0.00-0.03); Imm Gran Pct Auto 0.6 % (0.0-0.4); Lymphocytes Absolute Auto 2.2 X10*3/uL (1.2-4.9); Lymphocytes Percent Auto 22.6 % (20-40); Mean Corpuscular Hemoglobin 29.6 pg (27.0-33.0); Mean Corpuscular Volume 89.7 fL (80.0-98.0); Mean Platelet Volume 11.9 fL (9.4-12.3); Monocytes Percent Auto 10.2 % (2-11); Neutrophils Absolute Auto 6.2 x10*3/uL (2.0-8.3); Neutrophils Percent Auto 62.7 % (45-73); Platelet Count 169 X10*3/uL (160-400); Red Blood Count 3.99 X10*6/uL (4.20-5.50); Red Cell Distribution Width 13.6 % (11.0-16.0); White Blood Count 9.9 X10*3/uL (4.8-10.8)
[2023-08-15 07:14] VITALS: BP 133/60; PULSE 73; RESP 16; TEMP 36.4; O2SAT 92
[2023-08-15 07:41] LABS: Anion Gap 14 (12-20); Blood Urea Nitrogen 25 mg/dL (9-16); Carbon Dioxide 26 mmol/L (22-29); Chloride 102 mmol/L (96-108); Creatinine Clr Calc Pharmacy 54.5; Estimated Glomerular Filt Rate 52; Glucose Fasting 122 mg/dL (60-99); Potassium 4.6 mmol/L (3.3-5.1); Sodium 137 mmol/L (135-145)
[2023-08-15] MEDS: DULoxetine HCl 60 MG CAPSULE.DR PO (07:45)
[2023-08-15 07:46] LABS: Glucose, Whole Blood 147 mg/dL (60-115)
[2023-08-15] MEDS: Gabapentin 300 MG CAPSULE PO (07:46)
[2023-08-15] MEDS: hydroCHLOROthiazide 25 MG TABLET PO (07:46)
[2023-08-15] MEDS: Docusate Sodium 100 MG CAPSULE PO (07:46)
[2023-08-15] MEDS: Celecoxib 200 MG CAPSULE PO (07:46)
[2023-08-15] MEDS: Atorvastatin Calcium 20 MG TABLET PO (07:46)
[2023-08-15] MEDS: Metoprolol Tartrate 100 MG TABLET PO (07:47)
[2023-08-15] MEDS: amLODIPine Besylate 2.5 MG TABLET PO (07:47)
[2023-08-15] MEDS: oxyCODONE HCl ER 10 MG TAB.ER.12H PO (07:47)
[2023-08-15] MEDS: lisinopriL 40 MG TABLET PO (07:48)
[2023-08-15] MEDS: 0.9 % Sodium Chloride Flush 3 ML SYRINGE IVFLUSH (07:48)
[2023-08-15] MEDS: metFORMIN HCl 1,000 MG TABLET 1000 MG PO (07:48)
--- NOTE | 2023-08-15 08:38 | MHC.CM.PN ---
Patient medically cleared for dc home with services via private transport. [facility] aware of dc.
[2023-08-15] MEDS: Aspirin 325 MG TABLET PO (09:00)
[2023-08-15 10:23] VITALS: BP 133/60; PULSE 73; O2SAT 92
== END 2023-08-15 11:40 | disposition home health service (06) | DRG 326 ==
LOC: HO.SSSA 06:18 → HO.S3 09:36
PROVIDERS: Internal Medicine; Physician Assistant; Admitting Provider Orthopaedic Surgery; PCP Internal Medicine; Visit Provider Orthopaedic Surgery
PROC: 0SRD0J9 Replacement of Left Knee Joint with Synthetic Substitute, Cemented, Open Approach (ICD-10-PCS; CPT 27447; principal; 2023-08-13 08:40)
DX: M17.12 Unilateral primary osteoarthritis, left knee (principal); E11.65 Type 2 diabetes mellitus with hyperglycemia; E66.01 Morbid (severe) obesity due to excess calories; E78.00 Pure hypercholesterolemia, unspecified; F31.9 Bipolar disorder, unspecified; I10 Essential (primary) hypertension; Z68.38 Body mass index [BMI] 38.0-38.9, adult; G89.18 Other acute postprocedural pain; Z79.84 Long term (current) use of oral hypoglycemic drugs; Z79.85 Long-term (current) use of injectable non-insulin antidiabetic drugs; Z79.899 Other long term (current) drug therapy
CPT/HCPCS: 27447; 36415; 73560; 80048; 82565; 82947; 85025; 86850; 86900; 86901; 87640; 87641; 88305; 88311; 97110; 97116; 97162; C1713; C1776; J0131; J0665; J0690; J1100; J1170; J2250; J2371; J2704; J3010; J7120

== ENCOUNTER → 2023-08-13 06:17 | Outpatient (BNV) | payer OTHER, MEDICARE, SELFPAY | PROVIDERS: Admitting Provider Orthopaedic Surgery; PCP Internal Medicine; Visit Provider Orthopaedic Surgery | DX: M17.12 Unilateral primary osteoarthritis, left knee (principal); E66.01 Morbid (severe) obesity due to excess calories; Z68.41 Body mass index [BMI] 40.0-44.9, adult; E78.00 Pure hypercholesterolemia, unspecified; I10 Essential (primary) hypertension; Z47.1 Aftercare following joint replacement surgery; Z96.652 Presence of left artificial knee joint | CPT/HCPCS: 27447; 99024; G0180 ==

== ENCOUNTER → 2023-08-13 06:17 | Outpatient (BNV) | payer MEDICARE, OTHER, SELFPAY | PROVIDERS: Admitting Provider Orthopaedic Surgery; PCP Internal Medicine; Visit Provider Hospitalist | DX: M17.12 Unilateral primary osteoarthritis, left knee (principal); E66.01 Morbid (severe) obesity due to excess calories; Z68.41 Body mass index [BMI] 40.0-44.9, adult; E78.00 Pure hypercholesterolemia, unspecified; I10 Essential (primary) hypertension | CPT/HCPCS: 99222; 99232 ==

== ENCOUNTER 2023-08-28 11:22 | Outpatient (AMB) | payer OTHER, SELFPAY ==
--- NOTE | 2023-08-28 06:31 | A.OFFVIS_ITS ---
Intake Intake Visit Reasons: post op LT TKA 08/13/23 NE Intake Note: Rylee a 68 year old female presents today for a post operative left TKA 08/13/23 NE. Patient reports she is doing well, states discomfort with sharona. She was seen at her first outpatient PT visit today. Allergies No Known Allergies Allergy (Verified 08/28/23 11:38) HPI post op LT TKA 08/13/23 NE HPI Details 68-year-old female who returns to the [facility] today for post-op left TKA, 08/13/[address] Severino. She states she has discomfort at the sharona site however she is doing well overall. She attended her first outpatient physical therapy session today. She has been taking Tylenol and Celebrex for her pain as instructed. She has no other concerns. [facility] Medical History Diabetes Numbness Age-related osteoporosis without current pathological fracture Knee pain, bilateral Left leg pain Annual physical exam Preop exam for internal medicine Cataract BMI 37.0-37.9, adult Bipolar 2 disorder Arthritis Diverticulosis BMI 38.0-38.9,adult Obesity Carpal tunnel syndrome Hypercholesterolemia Anxiety Hypertension Insomnia Vitamin D deficiency GERD (gastroesophageal reflux disease) Fibromyalgia Surgical History History of cataract surgery H/O ovarian cystectomy History of colonoscopy History of discectomy History of carpal tunnel release History of tonsillectomy History of cholecystectomy History of appendectomy Family History Father Hypertension CVD (cardiovascular disease) Cancer Mother Hypertension Diabetes Maternal Aunt Colon cancer Father No problems noted. Sister Diabetes Sister Diabetes Sister Diabetes Brother Diabetes Son No problems noted. Son No problems noted. Social History Household Members: Spouse Housing: House Are you a primary health and social care teacher to a significant other at home: No Do you presently have visiting nurse or other home services: No Alcohol intake: current Alcohol intake frequency: does not drink Patient Tobacco Use Status: Never used Tobacco e-Cigarette/Vaping Use: Never Used Second Hand Smoke Exposure: No Current occupational status: employed Cognitive needs: No Hearing needs: No Vision needs: No Review of Systems Const All systems reviewed & are unremarkable except as noted in HPI and below Physical Exam Extrem Other: Left knee: Incision clean, dry and intact. No erythema or drainage. ROM is 0-110 degrees. Calf supple, nontender. NVI. Results Reviewed Results Reviewed: Brief Operative Note Date of Service: 08/13/23 Pre-op diagnosis: Left knee OA Post-op diagnosis: same Procedure: Left TKA Implants: Lisa [employer] 07/26//a cemented Surgeon: Jerson Severino MD Assessment & Plan Assessment & Plan (1) Status post total left knee replacement: Comment: July 2023 Code(s): Z96.652 - Presence of left artificial knee joint Plan Sharona removed, steri strips applied. She will begin to transition to Outpatient PT to continue working on Gait training, ROM and quad strength. No driving for another 4 weeks. She will require ppx abx for dental procedures. She will f/u in 4 weeks, sooner if needed. Patient Instructions: Scribed for Elin Peace PA-C, by Da Gilbert medical insurance coding specialist, on 08/28/2023 at 11:30 AM EST. I, Elin Peace PA-C, have personally reviewed and agree with the information entered by the scribe. Coding Level of Care Code Global (20724) Diagnoses Status post total left knee replacement Z96.652
== END 2023-08-28 12:21 | disposition home or self-care (01) ==
PROVIDERS: PCP Internal Medicine; Visit Provider Physician Assistant
DX: Z96.652 Presence of left artificial knee joint (principal)
CPT/HCPCS: 99024

== ENCOUNTER → 2023-08-28 11:22 | Outpatient (BNVA) | payer OTHER, SELFPAY | PROVIDERS: PCP Internal Medicine; Visit Provider Physician Assistant ==

== ENCOUNTER 2023-09-25 10:28 | Outpatient (AMB) | payer OTHER, SELFPAY ==
--- NOTE | 2023-09-25 10:34 | MHC.OFFVIS ---
Vital Signs 09/25/23 10:54 Height 5 ft 1 in Weight 193 lb BMI 36.5 Handedness Left Intake Visit Reasons: post op LT TKA 08/13/23 Intake Note: Rylee is a 68 year old female who presents today with a cane for a post operative left TKA 08/13/23 NE. Patient reports she doing well. She expresses she continues with PT doing strengthening exercises. She still feels instability and uses a cane for assistance when ambulating. Allergies No Known Allergies Allergy (Verified 09/25/23 10:51) HPI HPI post op LT TKA 08/13/23: Details: Rylee is a 68 year old female who presents today with a cane for a post operative left TKA 08/13/23 NE. Patient reports she doing well. She expresses she continues with PT doing strengthening exercises. She still feels instability and uses a cane for assistance when ambulating [facility] Medical History Osteoarthritis of left knee Type 2 diabetes mellitus with hyperglycemia Diabetes Numbness Age-related osteoporosis without current pathological fracture Knee pain, bilateral Left leg pain Annual physical exam Preop exam for internal medicine Cataract BMI 37.0-37.9, adult Bipolar 2 disorder Arthritis Diverticulosis BMI 38.0-38.9,adult Obesity Carpal tunnel syndrome Hypercholesterolemia Anxiety Hypertension Insomnia Vitamin D deficiency GERD (gastroesophageal reflux disease) Fibromyalgia Surgical History History of cataract surgery H/O ovarian cystectomy History of colonoscopy History of discectomy History of carpal tunnel release History of tonsillectomy History of cholecystectomy History of appendectomy Family History Father Hypertension CVD (cardiovascular disease) Cancer Mother Hypertension Diabetes Maternal Aunt Colon cancer Father No problems noted. Sister Diabetes Sister Diabetes Sister Diabetes Brother Diabetes Son No problems noted. Son No problems noted. Social History Household Members: Spouse Housing: House Are you a primary healthcare educator to a significant other at home: No Do you presently have visiting nurse or other home services: No Alcohol intake: current Alcohol intake frequency: does not drink Patient Tobacco Use Status: Never used Tobacco e-Cigarette/Vaping Use: Never Used Second Hand Smoke Exposure: No Current occupational status: employed Cognitive needs: No Hearing needs: No Vision needs: No Physical Exam Vital Signs: BMI result Body Mass Index 36.5 Extrem Other: Left knee: Incision clean, dry and intact. No erythema or drainage. ROM is 0-125 degrees. Calf supple, nontender. NVI. Assessment & Plan Assessment & Plan (1) Status post total left knee replacement: Comment: July 2023 Code(s): Z96.652 - Presence of left artificial knee joint Category: Surgical Plan: Doign well Cont PT and strengthening f/u 6 weeks Coding Level of Care Code Global (51125) Diagnoses Status post total left knee replacement Z96.652
[2023-09-25 10:54] VITALS: BMI 36.5
== END 2023-09-25 11:06 | disposition home or self-care (01) ==
PROVIDERS: PCP Internal Medicine; Visit Provider Orthopaedic Surgery
DX: Z96.652 Presence of left artificial knee joint (principal)
CPT/HCPCS: 99024

== ENCOUNTER → 2023-09-25 10:28 | Outpatient (BNVA) | payer OTHER, SELFPAY | PROVIDERS: PCP Internal Medicine; Visit Provider Orthopaedic Surgery ==

== ENCOUNTER → 2023-10-24 06:19 | Day surgery (SDC) | payer OTHER, SELFPAY ==
[2023-06-18 13:54] VITALS: BMI 40.4
--- NOTE | 2023-10-22 12:27 | P.CONAN_ITS ---
HPI - Anesthesia Eval Consult details Narrative: Cx'd d/t not stopping ozempic and recent solid food intake. 68yo F for Upper Endoscopy and Colonoscopy Anesthesia Pre-Procedure Meds Is the patient on any of the following meds?: GLP1/DPP4 PMFSH Active Problems Active Problems: All Active Problems Status post total left knee replacement (Acute) Osteoarthritis, knee (Acute) Osteopenia (Acute) Nasal lesion (Acute) Cervical cancer screening (Acute) Colon cancer screening (Acute) Annual physical exam (Acute) COVID-19 virus infection (Acute) Wrist pain, right (Acute) Osteoarthritis of knees, bilateral (Acute) Peripheral neuropathy (Acute) Bile salt-induced diarrhea (Acute) Frequency of urination (Acute) Peripheral neuropathy (Acute) Bipolar disorder (Acute) Preop exam for internal medicine (Acute) GERD (gastroesophageal reflux disease) (Acute) Past Medical History Medical History (Updated 10/30/23 @ 13:44 by Lesly Pinto MD) Hypercholesterolemia Hypertension Osteoarthritis of left knee Diabetes Numbness Age-related osteoporosis without current pathological fracture Knee pain, bilateral Left leg pain Annual physical exam Preop exam for internal medicine Cataract BMI 37.0-37.9, adult Bipolar 2 disorder Arthritis Diverticulosis BMI 38.0-38.9,adult Type 2 diabetes mellitus with hyperglycemia Obesity Carpal tunnel syndrome Anxiety Insomnia Vitamin D deficiency GERD (gastroesophageal reflux disease) Fibromyalgia Family History Family History Father Hypertension CVD (cardiovascular disease) Cancer Mother Hypertension Diabetes Maternal Aunt Colon cancer Father No problems noted. Sister Diabetes Sister Diabetes Sister Diabetes Brother Diabetes Son No problems noted. Son No problems noted. Family history of problems with anesthesia: No Surgical History Surgical History H/O left knee surgery History of cataract surgery H/O ovarian cystectomy History of colonoscopy History of discectomy History of carpal tunnel release History of tonsillectomy History of cholecystectomy History of appendectomy History of Problems with Anesthesia: No Social History Social History Household Members: Spouse Housing: House Are you a primary after school caregiver to a significant other at home: No Do you presently have visiting nurse or other home services: No Alcohol intake: current Alcohol intake frequency: holidays/special occasions only Patient Tobacco Use Status: Never used Tobacco e-Cigarette/Vaping Use: Never Used Second Hand Smoke Exposure: No Current occupational status: employed Cognitive needs: No Hearing needs: No Vision needs: Yes (glasses) Meds Allergies Allergy/AdvReac Type Severity Reaction Status Date / Time No Known Allergies Allergy Verified 10/30/23 13:29 Home Medications ?Medication ?Instructions ?Recorded ?Confirmed ?Last Taken ?Type melatonin 10 mg capsule 10 mg PO BEDTIME PRN Insomnia 10/04/20 10/30/23 08/12/23 History metformin 1,000 mg tablet 1,000 mg PO DAILY 06/30/23 10/30/23 10/23/23 History amlodipine 2.5 mg tablet 2.5 mg PO DAILY 08/13/23 10/30/23 10/23/23 History hydrochlorothiazide 25 mg tablet 12.5 mg PO DAILY 10/30/23 10/30/23 Unknown History Exam Height,Weight and Vital Signs: Height 5 ft 1 in Weight 97.069 kg Assessment and Plan Assessment Anesthesia Assessment: Chart Reviewed Final Anesthetic Review Family History of Problems with Anesthesia: No History of Problems with Anesthesia: No
--- NOTE | 2023-10-24 06:32 | PC.NURSE ---
Addendum entered by Cora Mares 10/24/23 07:23: Dr. Justin at bedside 0705. Made aware last solid food was yesterday morning at 1100 (patient previously stated the time was 0900), an egg sandwich with some ham. After discussion, patient cancelled. Patient in agreeable with plan and will call office to reschedule. Dr. Mercado made aware. Original Note: Patient in SSS. Took Ozempic injection last Wednesday 10/18, 5 days ago. Luning text sent to Dr. Mercado and Dr. Justin. Per Dr. Justin, proceed preop and he will assess at bedside.
[2023-10-24 06:40] VITALS: BP 143/75; PULSE 78; RESP 16; TEMP 37; O2SAT 98; BMI 35.7
[2023-10-24 06:52] LABS: Glucose, Whole Blood 114 mg/dL (60-115)
== END ==
PROVIDERS: PCP Internal Medicine; Visit Provider Internal Medicine
DX: Z12.11 Encounter for screening for malignant neoplasm of colon (principal); K21.9 Gastro-esophageal reflux disease without esophagitis; R68.81 Early satiety; R19.7 Diarrhea, unspecified; Z53.8 Procedure and treatment not carried out for other reasons
CPT/HCPCS: 82947

== ENCOUNTER 2023-10-27 11:00 | Outpatient (RCR) | payer OTHER, MEDICARE, SELFPAY ==
--- NOTE | 2023-08-28 09:47 | MHC.PT.EP ---
[facility] [place] Office [place] Office [place] Office [address] Monie Ferrell [address] [phone] F: [phone] F: [phone] F: [phone] F: [phone] Physical Therapy Plan of Care Date of Evaluation: 08/28/23 Date of Surgery: 08/13/23 Diagnosis: left TKA post-op (RL) Assessment: pt is a 68 y/o female presenting to physical therapy w/ referring diagnosis of left TKA Post OP. Impairments include pain, decreased range of motion, decreased strength, impaired functional mobility, impaired postural awareness, and altered ambulation mechanics. pt is a good candidate for skilled PT due to age, potential remediation of impairments, typical disease/condition progression and prognosis, comorbidities, and motivation. pt would benefit from skilled PT intervention to provide a tailored strengthening and stretching exercise program, functional training, gait training, postural re-training, neuromuscular re-education, modalities as needed for pain, equipment safety demonstration. Frequency and Duration: The patient will be seen 2x/wk for 4 wks Short Term Goals: pt will be I w/ HEP to promote self-management of condition. pt will improve L knee flexion by at least 10* to promote ease in squatting to tack picker objects from the ground. Timber Framer Goals: pt will report a statistically significant improvement in self-reported outcome measure, LEFI, to promote return to PLOF. pt will ascend/descend 12 stairs using reciprocal pattern and handrail to promote ease in navigating stairs. Treatment Plan: Modalities to reduce pain, spasms and effusion. Manual therapy to restore motion and function. Therapeutic exercise to improve strength and flexibility. Neuromuscular re-education for posture and balance. Therapeutic activities to return to functional activities of daily living. Electronically signed by: Chrissy Lucero PT, DPT Please sign and return to therapist. Thank you for your referral.
--- NOTE | 2023-11-10 13:49 | MHC.PT.DC ---
[facility] [place] Office [place] Office [place] Office [address] Monie Ferrell [address] [phone] F: [phone] F: [phone] F: [phone] F: [phone] Physical Therapy Discharge Report Diagnosis: left TKA post-op (RL) Date of Surgery: 08/13/23 Date of Evaluation: 08/28/23 Date of Discharge: 11/10/23 Treatments to Date: 7 Cancellations to Date: 10 No Shows to Date: 2 Discharge Status: Improved Function Independent with HEP Discharge Summary: The patient has had varied attendance towards the end of her plan of care. Her current lower extremity range of motion and strength are unknown. She has not been seen in over two weeks. Per her messages when cancelled her last several appointments she stated she has returned to work. She is discharged at this time. Electronically signed by: Chrissy Lucero PT, DPT Please sign and return to therapist. Thank you for your referral.
== END 2023-11-10 13:49 | disposition home or self-care (01) ==
LOC: HO.PT 11:00
PROVIDERS: PCP Internal Medicine; Visit Provider Physician Assistant
DX: Z96.652 Presence of left artificial knee joint (principal)
CPT/HCPCS: 97110; 97162; 97530

== ENCOUNTER 2023-10-30 13:27 | Outpatient (AMB) | payer OTHER, SELFPAY ==
--- NOTE | 2023-10-30 13:28 | A.OFFPC_ITS ---
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: Not Required per policy Accompanied by: Self / Same As Patient Allergies No Known Allergies Allergy (Verified 10/30/23 13:29) Medication List - Last Reconciled 10/30/23 by Lesly Pinto MD acetaminophen 650 mg (2 x 325 mg) PO Q6H PRN 30 days alprazolam 0.25 mg PO BEDTIME PRN amlodipine 2.5 mg PO DAILY atorvastatin 20 mg PO DAILY 90 days blood sugar diagnostic (RemotemedicalStyle Lite Strips) As directed check the BS QD blood-glucose meter (FreeStyle Lite Meter kit) As directed duloxetine (Cymbalta) 60 mg PO DAILY 90 days gabapentin 300 mg PO BID hydrochlorothiazide 12.5 mg PO DAILY indomethacin 50 mg PO BID lancets (RemotemedicalStyle Lancets) As directed check BS QD lisinopril 40 mg PO DAILY melatonin 10 mg PO BEDTIME PRN metformin 1,000 mg PO DAILY metoprolol tartrate 100 mg PO BID 90 days mirtazapine 7.5 mg PO BEDTIME PRN omeprazole 20 mg PO DAILY 90 days semaglutide 1 mg (0.75 mL) subcut QWEEK 30 days Tobacco use date assessed: 06/30/23 Fall risk assessment: No Falls in past year Last assessed Fall Risk: 10/30/23 Dental Screening Dental Screen Date: 08/06/23 HPI DM HPI Details 68-year-old obese female with diabetes m ellitus GERD hypertension hypercholesterolemia coming in for follow-up. Last seen for preoperative evaluation in July 2023. For left knee replacement done in 08/13/2023 patient's last blood work was 07/15/2023 LDL is 95. doing good but 3 days ago has pain on the L big toe did not fall - noted weight loss PFSH Medical History (Updated 10/30/23 @ 13:44 by Lesly Pinto MD) Hypercholesterolemia Hypertension Osteoarthritis of left knee Diabetes Numbness Age-related osteoporosis without current pathological fracture Knee pain, bilateral Left leg pain Annual physical exam Preop exam for internal medicine Cataract BMI 37.0-37.9, adult Bipolar 2 disorder Arthritis Diverticulosis BMI 38.0-38.9,adult Type 2 diabetes mellitus with hyperglycemia Obesity Carpal tunnel syndrome Anxiety Insomnia Vitamin D deficiency GERD (gastroesophageal reflux disease) Fibromyalgia Surgical History H/O left knee surgery History of cataract surgery H/O ovarian cystectomy History of colonoscopy History of discectomy History of carpal tunnel release History of tonsillectomy History of cholecystectomy History of appendectomy Family History Father Hypertension CVD (cardiovascular disease) Cancer Mother Hypertension Diabetes Maternal Aunt Colon cancer Father No problems noted. Sister Diabetes Sister Diabetes Sister Diabetes Brother Diabetes Son No problems noted. Son No problems noted. Social History Household Members: Spouse Housing: House Are you a primary rn wound care to a significant other at home: No Do you presently have visiting nurse or other home services: No Alcohol intake: current Alcohol intake frequency: holidays/special occasions only Patient Tobacco Use Status: Never used Tobacco e-Cigarette/Vaping Use: Never Used Second Hand Smoke Exposure: No Current occupational status: employed Cognitive needs: No Hearing needs: No Vision needs: No Questionnaire Thrive Questionnaire Date Thrive assessed: 06/30/23 PABLO-7 AMB Questionnaire PABLO-7 Date PABLO - 7 assessed: 06/30/23 Source: Developed by Drs. Jf Marcelo, Negar Lundy, Bradley Garcia and colleagues, with an educational jada from [employer]. Physical exam (Primary Care) Vital Signs: Last Vital Signs Pulse 59 10/30/23 13:29 BP 118/66 10/30/23 13:29 Pulse Ox 98 10/30/23 13:29 Oxygen Delivery Method Room Air 10/30/23 13:29 BMI result Body Mass Index 34.4 Tobacco/Smoking Status: Tobacco use Status Tobacco use date assessed 06/30/23 10/30/23 13:30 Patient Tobacco Use Status Never used Tobacco 10/30/23 13:30 e-Cigarette/Vaping Use Never Used 10/30/23 13:30 Thrive Assessment: Date of Thrive Assessment Date Thrive assessed 06/30/23 10/30/23 13:30 Const General: alert; No acute distress Eyes Conjunctivae: conjunctivae normal Resp Auscultation: clear to auscultation bilaterally Cardio Rate: regular rate Rhythm: regular rhythm GI Inspection: Yes normal to inspection Extrem Other: Left big toe mild swelling and redness but tender General: No edema Results AMB Hemoglobin A1c AMB Hemoglobin A1c 6.7 % Last Edit by RICKIE Gates on 10/30/23 13:52 Assessment and Plan Assessment & Plan (1) Type 2 diabetes mellitus with hyperglycemia: Comment: [facility] Code(s): E11.65 - Type 2 diabetes mellitus with hyperglycemia Qualifiers: Diabetes mellitus news operations manager insulin use: without news operations manager use Qualified Code(s): E11.65 - Type 2 diabetes mellitus with hyperglycemia Plan: Decrease the amount of carbohydrate intake, pasta, bread, rice and potatoes are all sugar and that is aside from all the sweet stuff, remember that fruits are good but they are Sweet also. Metformin is a 1000 mg once a day. Prescription for semaglutide sent in (2) GERD (gastroesophageal reflux disease): Code(s): K21.9 - Gastro-esophageal reflux disease without esophagitis Qualifiers: Esophagitis presence: without esophagitis Qualified Code(s): K21.9 - Gastro-esophageal reflux disease without esophagitis Plan: Avoid the foods that causes that usually spicy foods, tomato products, juices, coffee, soda and foods that your sensitive to. After eating do not lie down, allow 3-4 hours before in lie down. And keep the head of bed above 30 degrees to avoid the acid from going up. (3) Status post total left knee replacement: Comment: July 2023 Code(s): Z96.652 - Presence of left artificial knee joint Plan: Continue to follow-up with ortho (4) Bipolar disorder: Code(s): F31.9 - Bipolar disorder, unspecified Qualifiers: Active/Remission status: currently active Current bipolar episode type: depressed Current episode severity: moderate Qualified Code(s): F31.32 - Bipolar disorder, current episode depressed, moderate Plan: Continue with mirtazapine duloxetine alprazolam (5) Hypercholesterolemia: Code(s): E78.00 - Pure hypercholesterolemia, unspecified Plan: Avoid fried foods, chicken skin, eggs, butter margarine, pastries and meat. Be it pork or beef they have a lot of cholesterol LDL goal of less than 100 and triglyceride of less than 150 continue with atorvastatin 20 mg once a day (6) Hypertension: Code(s): I10 - Essential (primary) hypertension Qualifiers: Hypertension type: essential hypertension Qualified Code(s): I10 - Essential (primary) hypertension Plan: Continue with blood pressure medication. Decrease salt intake and exercise takes amlodipine 2.5 mg once a day hydrochlorothiazide 25 once a day lisinopril 40 mg once a day and metoprolol 100 mg twice a day. (7) Pain of left great toe: Code(s): M79.675 - Pain in left toe(s) Plan: will treat for gout Orders: Orders Uric Acid Today M79.675 - Pain in left toe(s) Complete Blood Count Auto Diff Today M79.675 - Pain in left toe(s) AMB Hemoglobin A1c Today E11.65 - Type 2 diabetes mellitus with hyperglycemia Comprehensive Met. Panel Today M79.675 - Pain in left toe(s) Medications: New indomethacin administer with food or milk 50 mg PO BID 20 caps 0RF M79.675 - Pain in left toe(s) Refilled gabapentin 300 mg PO BID 180 caps 0RF M79.675 - Pain in left toe(s) Coding Level of Care Code Est Pt Level 4 (74155) Diagnoses Type 2 diabetes mellitus with hyperglycemia, without long-term current use of insulin E11.65 Diabetes mellitus jail insulin use: without news operations manager use Gastroesophageal reflux disease without esophagitis K21.9 Esophagitis presence: without esophagitis Status post total left knee replacement Z96.652 Bipolar affective disorder, currently depressed, moderate F31.32 Active/Remission status: currently active Current bipolar episode type: depressed Current episode severity: moderate Hypercholesterolemia E78.00 Essential hypertension I10 Hypertension type: essential hypertension Pain of left great toe M79.675
[2023-10-30 13:29] VITALS: BP 118/66; PULSE 59; O2SAT 98; BMI 34.4
== END 2023-10-30 13:51 | disposition home or self-care (01) ==
PROVIDERS: PCP Internal Medicine; Visit Provider Internal Medicine
DX: E11.65 Type 2 diabetes mellitus with hyperglycemia (principal); K21.9 Gastro-esophageal reflux disease without esophagitis; Z96.652 Presence of left artificial knee joint; F31.32 Bipolar disorder, current episode depressed, moderate; E78.00 Pure hypercholesterolemia, unspecified; I10 Essential (primary) hypertension; M79.675 Pain in left toe(s)
CPT/HCPCS: 83036; 99214

== ENCOUNTER 2023-11-06 06:44 | Outpatient (REF) | payer OTHER, SELFPAY ==
--- NOTE | ~2023-11-06 | XR_ITS ---
EXAMINATION: XR KNEE, LEFT CLINICAL INFORMATION: Left knee pain COMPARISON: Left knee radiographs 08/13/2023. TECHNIQUE: Four views of the left knee. FINDINGS: Redemonstrated postoperative appearance from constrained left total knee arthroplasty, in unchanged alignment, without evidence of hardware complication. No evidence of acute fracture no dislocation. Medial patellar tilt. Incidental severe right knee osteoarthritis, worst in the medial femorotibial compartment, where it is characterized by severe joint space narrowing, moderate osteophytosis, and subchondral sclerosis. Moderate left prepatellar soft tissue swelling, decreased from 08/13/2023. XR/XR knee LT 3V IMPRESSION: 1. Redemonstrated postoperative appearance from constrained left total knee arthroplasty, in unchanged alignment, without evidence of hardware complication. 2. Moderate left prepatellar soft tissue swelling, decreased from 08/13/2023. 3. Incidental severe right knee osteoarthritis.
== END 2023-11-06 06:45 | disposition home or self-care (01) ==
LOC: HO.HOSX 06:44
PROVIDERS: Visit Provider Orthopaedic Surgery
DX: M25.562 Pain in left knee (principal)
CPT/HCPCS: 73562

== ENCOUNTER 2023-11-06 11:06 | Outpatient (AMB) | payer OTHER, SELFPAY ==
--- NOTE | 2023-11-06 11:18 | MHC.OFFVIS ---
Vital Signs 11/06/23 11:26 Height 5 ft 2 in Weight 188 lb BMI 34.4 Intake Visit Reasons: OV-LT TKA 08/13/23-follow up Intake Note: Rylee is a 68 year old female who presents today with a cane for a post operative left TKA 08/13/23 NE. Patient reports she feels good and completed PT. Allergies No Known Allergies Allergy (Verified 11/06/23 11:28) HPI HPI OV-LT TKA 08/13/23-follow up: Details: Rylee is a 68 year old female who presents today with a cane for a post operative left TKA 08/13/23 NE. Patient reports she feels good and completed PT. [facility] Medical History Hypercholesterolemia Hypertension Osteoarthritis of left knee Diabetes Numbness Age-related osteoporosis without current pathological fracture Knee pain, bilateral Left leg pain Annual physical exam Preop exam for internal medicine Cataract BMI 37.0-37.9, adult Bipolar 2 disorder Arthritis Diverticulosis BMI 38.0-38.9,adult Type 2 diabetes mellitus with hyperglycemia Obesity Carpal tunnel syndrome Anxiety Insomnia Vitamin D deficiency GERD (gastroesophageal reflux disease) Fibromyalgia Surgical History H/O left knee surgery History of cataract surgery H/O ovarian cystectomy History of colonoscopy History of discectomy History of carpal tunnel release History of tonsillectomy History of cholecystectomy History of appendectomy Family History Father Hypertension CVD (cardiovascular disease) Cancer Mother Hypertension Diabetes Maternal Aunt Colon cancer Father No problems noted. Sister Diabetes Sister Diabetes Sister Diabetes Brother Diabetes Son No problems noted. Son No problems noted. Social History Household Members: Spouse Housing: House Are you a primary residential care officer to a significant other at home: No Do you presently have visiting nurse or other home services: No Alcohol intake: current Alcohol intake frequency: holidays/special occasions only Patient Tobacco Use Status: Never used Tobacco e-Cigarette/Vaping Use: Never Used Second Hand Smoke Exposure: No Current occupational status: employed Cognitive needs: No Hearing needs: No Vision needs: Yes (glasses) Physical Exam Vital Signs: BMI result Body Mass Index 34.4 Extrem Other: inc c/d/i full rom ( 0-130) stable arc of motion no gait antalgia Results Reviewed Results Reviewed: I personally reviewed relevant radiographs. Left total knee arthroplasty in expected post operative position with no hardware complications or evidence of loosening Assessment & Plan Assessment & Plan (1) Status post total left knee replacement: Comment: July 2023 Code(s): Z96.652 - Presence of left artificial knee joint Category: Surgical Plan: Doing very well with no complaints. Continue activity as tolerated. Dental prophylaxis discussed. Orders: Orders XR knee LT 3V 11/06/23 M25.562 - Pain in left knee Coding Level of Care Code Global (90121) Diagnoses Status post total left knee replacement Z96.652
[2023-11-06 11:26] VITALS: BMI 34.4
== END 2023-11-06 11:33 | disposition home or self-care (01) ==
PROVIDERS: PCP Internal Medicine; Visit Provider Orthopaedic Surgery
DX: Z96.652 Presence of left artificial knee joint (principal)
CPT/HCPCS: 99024

== ENCOUNTER 2023-12-30 09:23 | Outpatient (REF) | payer OTHER, MEDICARE, SELFPAY ==
--- NOTE | ~2023-12-30 | MM_ITS ---
EXAMINATION: MM SCREENING DIGITAL BREAST TOMOSYNTHESIS, BILATERAL CLINICAL INFORMATION: Screening. Asymptomatic. COMPARISON: Mammography: This study is compared with prior exams dating back to 2020. TECHNIQUE: Digital breast tomosynthesis is performed in both the craniocaudal and mediolateral oblique views along with computer-aided detection (CAD). Synthesized 2D images are generated from the tomosynthesis. FINDINGS: The breasts are almost entirely fatty (ACR BI-RADS breast composition Category a). There are no significant masses, abnormal calcifications, or other abnormalities. Few, benign calcifications are present in each breast. MM/MM tomosynthesis screening BI IMPRESSION: No mammographic evidence of malignancy. ASSESSMENT: BI-RADS BI-RADS 2 - Benign Findings RECOMMENDATION: Routine annual mammography screening. 1 year F/U This examination should not preclude the clinical evaluation of a suspicious palpable abnormality. This patient's information was entered into a reminder system with a target due date for their next mammogram.
== END 2023-12-30 09:24 | disposition home or self-care (01) ==
LOC: HO.MAMMO 09:23
PROVIDERS: PCP Internal Medicine; Visit Provider Internal Medicine
DX: Z12.31 Encounter for screening mammogram for malignant neoplasm of breast (principal)
CPT/HCPCS: 77063; 77067

== ENCOUNTER → 2023-12-30 09:30 | Outpatient (BNV) | payer OTHER, MEDICARE, SELFPAY | PROVIDERS: PCP Internal Medicine; Visit Provider Radiology Diagnostic Radiology | DX: Z12.31 Encounter for screening mammogram for malignant neoplasm of breast (principal) | CPT/HCPCS: 77063; 77067 ==

== ENCOUNTER 2024-02-15 21:05 | Emergency (ER) | payer OTHER, MEDICARE, SELFPAY ==
--- NOTE | ~2024-02-15 | CT_ITS ---
EXAMINATION: CT ABDOMEN AND PELVIS WITHOUT CONTRAST CLINICAL INFORMATION: Right lower quadrant pelvic pain with vaginal bleeding. COMPARISON: 08/26/2022 and 07/01/2021 TECHNIQUE: Multidetector volumetric imaging was performed from the superior aspect of the liver through the pubic symphysis. Sagittal and coronal reformatted images were obtained on the technologist's workstation. This CT examination was performed using dose optimization techniques as appropriate, variously including the following: *Automated exposure control *Adjustment of mA and/or kV according to patient size (this includes techniques or standardized protocols for targeted exams where dose is matched to indication/reason for exam; i.e. extremities or head) *Use of iterative reconstruction technique DLP: 805 mGy-cm FINDINGS: LUNG BASES: The visualized lung bases are unremarkable. LIVER, GALLBLADDER, AND BILIARY TREE: The liver is normal in size, shape, and attenuation. No focal hepatic lesion or biliary ductal dilatation is present. Gallbladder is surgically absent. PANCREAS: Unremarkable. SPLEEN: Unremarkable. ADRENAL GLANDS: The 2.1 cm fat attenuation left adrenal lesion is unchanged in most consistent with a myelolipoma. Again seen is a surrounding soft tissue attenuation focus along the anterior margin measuring up to 1.5 cm in thickness, unchanged. No new lesions. KIDNEYS AND URETERS: The kidneys are normal in size, shape, and attenuation. No hydronephrosis, hydroureter, or calculi seen. Multiple small bilateral parapelvic cysts. No perinephric stranding. BLADDER: Unremarkable. GASTROINTESTINAL TRACT: Stomach, small bowel, and colon are normal in caliber. No bowel wall thickening or surrounding inflammatory changes. Mild sigmoid diverticulosis. No acute diverticulitis. Appendix is normal. No intraperitoneal free fluid or free air. ABDOMINAL WALL: No significant hernia is appreciated. LYMPH NODES: Normal. VASCULAR: Atherosclerotic calcifications are present in the abdominal aorta and iliac arteries. PELVIC VISCERA: The uterus and adnexa are unremarkable. OSSEOUS STRUCTURES: [id number] multilevel degenerative disc disease in the lumbar spine with more moderate to severe multilevel facet arthropathy. Marked central canal stenoses are suspected at L3-L4 and L4-L5 due to disc bulges, facet arthropathy, and ligamentum flavum thickening. Mild osteoarthritis in the SI joints. Moderate osteoarthritis in the right hip and more mild osteoarthritis in the left. Moderate to severe fatty atrophy of the right gluteus minimus and more mild atrophy of the right gluteus medius. CT/CT abdomen pelvis wo IV con IMPRESSION: 1. No acute intra-abdominal or intrapelvic abnormalities. 2. Mild sigmoid diverticulosis without evidence of acute diverticulitis. 3. Unchanged 2.1 cm left adrenal myelolipoma. As previously noted, there is a partial rim of surrounding soft tissue attenuation which raises the possibility of a collision lesion, though the stability over multiple years since 07/01/2023 favors a benign entity. 4. Multilevel degenerative disc disease and facet arthropathy in the lumbar spine with suspected marked central canal stenoses at L3-L4 and L4-L5. Fleischner guidelines were followed. Electronically signed by: Gilbert Yeager MD 02/16/2024 12:23 AM EDT
[2024-02-15 21:25] VITALS: BP 135/87; PULSE 81; RESP 18; TEMP 37.1; O2SAT 98; BMI 36.2
[2024-02-15 21:47] LABS: Hematocrit 40.6 % (37.0-47.0); Hemoglobin 13.2 g/dl (12.0-16.0); Mean Corpuscular HGB Conc 32.5 g/dl (31.0-35.0); Mean Corpuscular Hemoglobin 28.3 pg (27.0-33.0); Mean Corpuscular Volume 86.9 fL (80.0-98.0); Mean Platelet Volume 10.7 fL (9.4-12.3); Platelet Count 209 X10*3/uL (160-400); Red Blood Count 4.67 X10*6/uL (4.20-5.50); Red Cell Distribution Width 14.8 % (11.0-16.0); White Blood Count 5.7 X10*3/uL (4.8-10.8)
[2024-02-15 21:52] LABS: INTERNATIONAL NORM RATIO 0.9 (0.9-1.1); Prothrombin Time 10.3 SEC (10.9-12.4)
[2024-02-15 22:07] LABS: Alanine Aminotransferase 17 U/L (0-31); Alkaline Phosphatase 108 U/L (39-117); Anion Gap 14 (12-20); Aspartate Amino Transferase 15 U/L (5-31); Bilirubin Total 0.2 mg/dL (0.0-1.0); Blood Urea Nitrogen 24 mg/dL (9-16); Calcium 9.9 mg/dL (8.4-10.2); Carbon Dioxide 23 mmol/L (22-29); Chloride 109 mmol/L (96-108); Creatinine Clr Calc Pharmacy 40.8; Estimated Glomerular Filt Rate 37; Glucose Random 151 mg/dL (60-115); Potassium 4.7 mmol/L (3.3-5.1); Sodium 141 mmol/L (135-145); Total Protein 7.7 g/dL (6.5-8.0)
--- NOTE | 2024-02-15 22:43 | PC.NURSE ---
Pt a&ox4, no signs of distress. Pt reports 9/10 RLQ pain, with bright red bleeding that began today. Pt denies n/v, pain with urination. Family at bedside Plan of care ongoing.
--- NOTE | 2024-02-15 22:58 | ED_ITS ---
HPI - General Adult General Chief complaint: Vaginal Bleeding Stated complaint: vag bleeding Time Seen by Provider: 02/15/24 22:58 History of Present Illness ED Provider: Ashli MCALLISTER narrative: The patient is a 68-year-old female who says that she has been having problems with intermittent right lower abdominal pain for a month or 2. This pain seems to be episodic and she describes having spasms of pain. She describes the spasms as being fairly brief. Tonight the patient passed what she thought was a large amount of blood from her vagina. She is quite certain the blood from her vagina and not her rectum. She also had several episodes of the right lower abdominal discomfort. She called her mother and had her mother drive her to the emergency room. No fever, sweats, chills. No nausea or vomiting. No cough or sputum. The patient says that she has been getting pains in her right lower abdomen or pelvis several times a day. The episodes of pain can be brief for they can last a few minutes. The longest episode of pain may have been 15 minutes. Related Data Home Medications ?Medication ?Instructions ?Recorded ?Confirmed melatonin 10 mg capsule 10 mg PO BEDTIME PRN Insomnia 10/04/20 10/30/23 metformin 1,000 mg tablet 1,000 mg PO DAILY 06/30/23 10/30/23 amlodipine 2.5 mg tablet 2.5 mg PO DAILY 08/13/23 10/30/23 hydrochlorothiazide 25 mg tablet 12.5 mg PO DAILY 10/30/23 10/30/23 Previous Rx's ?Medication ?Instructions ?Recorded duloxetine 60 mg capsule,delayed 60 mg PO DAILY 90 days #90 caps 10/16/22 release (Cymbalta) atorvastatin 20 mg tablet 20 mg PO DAILY 90 days #90 tabs 02/06/23 blood sugar diagnostic (FreeStyle #100 ea 02/06/23 Lite Strips) blood-glucose meter (FreeStyle #1 ea 02/06/23 Lite Meter kit) lancets 28 gauge (FreeStyle #100 ea 02/06/23 Lancets) metoprolol tartrate 100 mg tablet 100 mg PO BID 90 days #180 tabs 02/06/23 alprazolam 0.25 mg tablet 0.25 mg PO BEDTIME PRN anxiety #10 04/10/23 tabs lisinopril 40 mg tablet 40 mg PO DAILY #90 tabs 05/21/23 omeprazole 20 mg capsule,delayed 20 mg PO DAILY 90 days #90 caps 06/30/23 release acetaminophen 325 mg tablet 650 mg (2 x 325 mg) PO Q6H PRN 08/14/23 Pain, Mild (Pain Scale 1-3) 30 days #240 tabs indomethacin 50 mg capsule 50 mg PO BID #20 caps 10/30/23 semaglutide 1 mg/dose (4 mg/3 mL) 1 mg (0.75 mL) subcut QWEEK 30 11/14/23 subcutaneous pen injector days #3.75 mL gabapentin 300 mg capsule 300 mg PO BID #180 caps 02/05/24 mirtazapine 7.5 mg tablet 7.5 mg PO BEDTIME PRN Insomnia #90 02/05/24 tabs tranexamic acid 650 mg tablet 1,300 mg (2 x 650 mg) PO TID 5 02/16/24 days #30 tabs Allergies Allergy/AdvReac Type Severity Reaction Status Date / Time No Known Allergies Allergy Verified 02/15/24 21:27 Review of Systems 2 Review of Systems: Yes all other systems are reviewed and are negative [facility] Past Medical History Medical History Hypercholesterolemia Hypertension Osteoarthritis of left knee Diabetes Numbness Age-related osteoporosis without current pathological fracture Knee pain, bilateral Left leg pain Annual physical exam Preop exam for internal medicine Cataract BMI 37.0-37.9, adult Bipolar 2 disorder Arthritis Diverticulosis BMI 38.0-38.9,adult Type 2 diabetes mellitus with hyperglycemia Obesity Carpal tunnel syndrome Anxiety Insomnia Vitamin D deficiency GERD (gastroesophageal reflux disease) Fibromyalgia Surgical History H/O left knee surgery History of cataract surgery H/O ovarian cystectomy History of colonoscopy History of discectomy History of carpal tunnel release History of tonsillectomy History of cholecystectomy History of appendectomy Family History Family History Father Hypertension CVD (cardiovascular disease) Cancer Mother Hypertension Diabetes Maternal Aunt Colon cancer Father No problems noted. Sister Diabetes Sister Diabetes Sister Diabetes Brother Diabetes Son No problems noted. Son No problems noted. Social History Social History Household Members: Spouse Housing: House Are you a primary healthcare network consultant to a significant other at home: No Do you presently have visiting nurse or other home services: No Alcohol intake: current Alcohol intake frequency: holidays/special occasions only Patient Tobacco Use Status: Never used Tobacco Smoked in Last 30 Days: No e-Cigarette/Vaping Use: Never Used Second Hand Smoke Exposure: No Use of substances other than those prescribed or required for medical reasons: No Advance Directives: No Advance Directives Information Provided: No Current occupational status: employed Cognitive needs: No Hearing needs: No Vision needs: Yes (glasses) Physical Exam ED Vital Signs: Vital Signs - 24 hr 02/15/24 21:25 02/15/24 23:51 Temperature 98.7 F 97.8 F Pulse Rate 81 75 Respiratory Rate 18 16 Blood Pressure 135/87 145/72 H Pulse Oximetry 98 96 Oxygen Delivery Method Room Air Room Air BMI result Body Mass Index 36.2 Const Other: The patient is a 68-year-old woman who was awake and alert. She does not appear in overt distress. HENMT Other: Face is symmetrical. Mucous membranes moist. Eyes Other: Pupils are round equal, conjunctivae are clear General: appearance normal, both eyes and all related structures Pupils: Equal, round and reactive pupils present EOM: EOMs intact bilaterally Neck Neck: Yes no JVD Resp Effort & Inspection: normal respiratory effort Auscultation: clear to auscultation bilaterally Cardio Rate: regular rate Rhythm: regular rhythm Heart sounds: S1 normal heart sound present and S2 normal heart sound present GI Other: There is some right lower quadrant tenderness with fairly deep palpation Other: External vaginal genitalia was unremarkable. Speculum exam revealed a small amount of blood in the vaginal vault with a small amount of blood emerging from the cervical os. There was no significant ongoing bleeding. On bimanual exam the patient seemed to have a lot of generalized tenderness with a maximal tenderness being in the right adnexal area. Skin Other: Skin is dry and unremarkable Neuro Other: The patient is awake, alert, pleasant, cooperative. Cranial nerves are grossly intact. She moves her extremities normally and seems grossly neurologically intact. Cranial nerves: Yes Equal, round and reactive pupils present Medical Decision Making Medical Decision Making MDM Narrative: The patient is a 68-year-old female who presented after having unexpected vaginal bleeding tonight. She also reports that she has been having intermittent right lower quadrant pelvic pains, possibly a couple of months. The pains are intermittent and do not last very long. Based on her history it is not clear that the vaginal bleeding tonight is necessarily associated with the episodes of pain. She did not have any significant ongoing bleeding visible during my speculum exam. A CT of the abdomen and pelvis (without contrast because of the patient's borderline renal function) was unremarkable from the point of view of anything that would account for the patient has right-sided pains. Overall the patient seems clinically stable and I think she may be managed as an outpatient. She will be referred to Dr. Haddad of educational institution curator. She will also be referred back to her PCP, Dr. Grace Po. I will send a prescription for tranexamic acid that she may use for the vaginal bleeding she has been experiencing this evening. Lab Data 02/15/24 21:41 02/15/24 21:41 Labs: Lab Results 02/15/24 02/15/24 Range/Units 21:41 23:00 WBC 5.7 (4.8-10.8) X10*3/uL RBC 4.67 (4.20-5.50) X10*6/uL Hgb 13.2 (12.0-16.0) g/dl Hct 40.6 (37.0-47.0) % MCV 86.9 (80.0-98.0) fL MCH 28.3 (27.0-33.0) pg MCHC 32.5 (31.0-35.0) g/dl RDW 14.8 (11.0-16.0) % Plt Count 209 (160-400) X10*3/uL MPV 10.7 (9.4-12.3) fL Absolute Nucleated RBC 0.000 (0.0-0.012) X10*3/uL Nucleated RBC % (auto) 0.0 (0.0-0.2) /100WBC PT 10.3 L (10.9-12.4) SEC INR 0.9 (0.9-1.1) Sodium 141 (135-145) mmol/L Potassium 4.7 (3.3-5.1) mmol/L Chloride 109 H (96-108) mmol/L Carbon Dioxide 23 (22-29) mmol/L Anion Gap 14 (12-20) BUN 24 H (9-16) mg/dL Creatinine 1.41 H (0.5-1.4) mg/dL Estim Creat Clear Calc 40.8 Estimated GFR 37 Random Glucose 151 H (60-115) mg/dL Calcium 9.9 D (8.4-10.2) mg/dL Total Bilirubin 0.2 (0.0-1.0) mg/dL AST 15 (5-31) U/L ALT 17 (0-31) U/L Alkaline Phosphatase 108 (39-117) U/L Total Protein 7.7 (6.5-8.0) g/dL Albumin 4.0 (3.5-5.0) g/dL Blood Type O Positive Antibody Screen NEGATIVE Discharge Plan Discharge Clinical Impression: Abnormal vaginal bleeding, Right lower quadrant abdominal pain Patient Disposition: Home, Self-Care Additional Instructions: Your blood counts today are very good. There is no sign of any significant amount of blood loss. The CT scan does not show any concerning finding which might account for the pains you have been experiencing in your right lower abdomen. I have sent a prescription for medication called TXA that helps with vaginal bleeding. Please start taking this in the morning. Take a 3 times a day for 5 days. Additionally and possibly more important it would be good for you to follow up with a educational institution curator. Please contact Dr. Haddad's office in the morning to try to set up a prompt follow up appointment. Follow up with your regular doctor if there is any delay in seeing the educational institution curator. Return to the emergency room if you feel significantly worse. Prescriptions: New tranexamic acid 650 mg tablet 1,300 mg PO TID 5 Days Qty: 30 0RF No Action alprazolam 0.25 mg tablet 0.25 mg PO BEDTIME PRN (Reason: anxiety) Qty: 10 0RF semaglutide 1 mg/dose (4 mg/3 mL) pen injector 1 mg subcut QWEEK 30 Days Qty: 3.75 3RF Patient Comments: patient takes on Sundays Rx Instructions: for 4 doses mirtazapine 7.5 mg tablet 7.5 mg PO BEDTIME PRN (Reason: Insomnia) Qty: 90 1RF gabapentin 300 mg capsule 300 mg PO BID Qty: 180 1RF amlodipine 2.5 mg tablet 2.5 mg PO DAILY acetaminophen 325 mg Tablet 650 mg PO Q6H PRN (Reason: Pain, Mild (Pain Scale 1-3)) 30 Days Qty: 240 0RF melatonin 10 mg capsule 10 mg PO BEDTIME PRN (Reason: Insomnia) duloxetine [Cymbalta] 60 mg capsule,delayed release(DR/EC) 60 mg PO DAILY 90 Days Qty: 90 2RF lisinopril 40 mg tablet 40 mg PO DAILY Qty: 90 3RF metformin 1,000 mg tablet 1,000 mg PO DAILY omeprazole 20 mg capsule,delayed release(DR/EC) 20 mg PO DAILY 90 Days Qty: 90 3RF atorvastatin 20 mg tablet 20 mg PO DAILY 90 Days Qty: 90 1RF metoprolol tartrate 100 mg tablet 100 mg PO BID 90 Days Qty: 180 2RF (DME) blood-glucose meter [FreeStyle Lite Meter] Kit See Rx Instructions .ROUTE .MEDSUPPLY Qty: 1 0RF Rx Instructions: As directed (DME) FreeStyle Lite Strips Strip See Rx Instructions .ROUTE .MEDSUPPLY Qty: 100 3RF Rx Instructions: As directed check the BS QD (DME) lancets [FreeStyle Lancets] 28 gauge misc See Rx Instructions .ROUTE .MEDSUPPLY Qty: 100 3RF Rx Instructions: As directed check BS QD indomethacin 50 mg capsule 50 mg PO BID Qty: 20 0RF Rx Instructions: administer with food or milk hydrochlorothiazide 25 mg tablet 12.5 mg PO DAILY Referrals: Po,Lesly Puckett MD [Primary Care Provider] - (Abnormal vaginal bleeding, abdominal pains) Sudeep Haddad MD [Physician] - (Abnormal vaginal bleeding, intermittent right lower abdominal or pelvic discomfort) Print Language: Gambian
--- NOTE | 2024-02-15 22:59 | PC.NURSE ---
Provider with pt Plan of care ongoing.
--- NOTE | 2024-02-15 23:44 | PC.NURSE ---
Provider with pt Plan of care ongoing.
[2024-02-15 23:51] VITALS: BP 145/72; PULSE 75; RESP 16; TEMP 36.6; O2SAT 96
[2024-02-16 01:40] VITALS: BP 140/74; PULSE 80; RESP 14; TEMP 36.7; O2SAT 98
== END 2024-02-16 01:43 | disposition home or self-care (01) ==
PROVIDERS: Emergency Provider Emergency Medicine; PCP Internal Medicine
DX: N93.8 Other specified abnormal uterine and vaginal bleeding (principal); R10.31 Right lower quadrant pain; R10.2 Pelvic and perineal pain; Z79.899 Other long term (current) drug therapy
CPT/HCPCS: 36415; 74176; 80053; 85027; 85610; 86850; 86900; 86901; 99284

== ENCOUNTER 2024-03-15 10:45 | Outpatient (AMB) | payer OTHER, MEDICARE, SELFPAY ==
--- NOTE | 2024-03-15 10:50 | MHC.PC.OV ---
Vital Signs 03/15/24 10:51 Height 5 ft 2 in Weight 192 lb 2 oz BMI 35.1 BP 130/70 Blood Pressure Location Lt brachial Position Sitting Pulse 93 Pulse Source Pulse Oximeter Pulse Oximetry (%) 97 Oxygen Delivery Method Room Air Intake Visit Reasons: gout Intake Note: Patient is here to follow up on Gout, DM. Need medication refill. Hand Weaver Required: No Bolt Maker: Not Required per policy Accompanied by: Self / Same As Patient Allergies No Known Allergies Allergy (Verified 03/15/24 10:50) Tobacco use date assessed: 03/15/24 Fall risk assessment: No Falls in past year Last assessed Fall Risk: 03/15/24 Dental Screening Dental Screen Date: 08/06/23 HPI gout HPI Details 69-year-old obese female with controlled diabetes mellitus GERD bipolar disorder hypercholesterolemia hypertension last seen in 10/30/2023. Patient is reminded about colonoscopy. Up-to-date with mammogram and bone density. 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 Note here received advised rescheduling of colonoscopy. Patient also follows up with orthopedics seen in October following left total knee arthroplasty [id number]. - will be having another endometrial scrapings D and C [facility] colon test to reschedule [facility] Medical History (Updated 03/15/24 @ 11:10 by Lesly Pinto MD) Type 2 diabetes mellitus with hyperglycemia Cervical cancer screening Hypercholesterolemia Hypertension Osteoarthritis of left knee Diabetes Numbness Age-related osteoporosis without current pathological fracture Knee pain, bilateral Left leg pain Annual physical exam Preop exam for internal medicine Cataract BMI 37.0-37.9, adult Bipolar 2 disorder Arthritis Diverticulosis BMI 38.0-38.9,adult Obesity Carpal tunnel syndrome Anxiety Insomnia Vitamin D deficiency GERD (gastroesophageal reflux disease) Fibromyalgia Surgical History H/O left knee surgery History of cataract surgery H/O ovarian cystectomy History of colonoscopy History of discectomy History of carpal tunnel release History of tonsillectomy History of cholecystectomy History of appendectomy Family History Father Hypertension CVD (cardiovascular disease) Cancer Mother Hypertension Diabetes Maternal Aunt Colon cancer Father No problems noted. Sister Diabetes Sister Diabetes Sister Diabetes Brother Diabetes Son No problems noted. Son No problems noted. Social History Household Members: Spouse Housing: House Are you a primary ambulatory care nurse to a significant other at home: No Do you presently have visiting nurse or other home services: No Alcohol intake: current Alcohol intake frequency: holidays/special occasions only Patient Tobacco Use Status: Never used Tobacco e-Cigarette/Vaping Use: Never Used Second Hand Smoke Exposure: No service: No Current occupational status: employed Cognitive needs: No Hearing needs: No Vision needs: Yes (glasses) Questionnaire Thrive Questionnaire Date Thrive assessed: 06/30/23 Are you currently unemployed and looking for a job?: No AUDIT C Alcohol Use Questionnaire (AUDIT-C) 2. How many drinks containing alcohol do you have on a typical day when you are drinking?: 1 or 2 3. How often do you have six or more drinks on one occasion?: Never Total Score: 0 PABLO-7 AMB Questionnaire PABLO-7 Date PABLO - 7 assessed: 06/30/23 Source: Developed by Drs. Jf Marcelo, Negar Lundy, Bradley Garcia and colleagues, with an educational jada from [employer]. Physical exam (Primary Care) Vital Signs: Last Vital Signs Pulse 93 03/15/24 10:51 BP 130/70 03/15/24 10:51 Pulse Ox 97 03/15/24 10:51 Oxygen Delivery Method Room Air 03/15/24 10:51 BMI result Body Mass Index 35.1 Tobacco/Smoking Status: Tobacco use Status Tobacco use date assessed 03/15/24 03/15/24 11:04 Patient Tobacco Use Status Never used Tobacco 03/15/24 11:04 e-Cigarette/Vaping Use Never Used 03/15/24 11:04 Thrive Assessment: Date of Thrive Assessment Date Thrive assessed 06/30/23 03/15/24 11:04 Const General: alert; No acute distress Eyes Conjunctivae: conjunctivae normal Resp Auscultation: clear to auscultation bilaterally Cardio Rate: regular rate Rhythm: regular rhythm GI Inspection: Yes normal to inspection Extrem General: Yes normal to inspection and No edema Office Procedures Flu Questionnaire Does the patient have a severe egg allergy?: No Does the patient have severe life threatening allergies?: No Does the patient have a fever or illness today?: No Has the patient ever had Guillain-St[place] Syndrome?: No Has the patient ever had any past reaction to a flu shot?: No Results AMB Hemoglobin A1c AMB Hemoglobin A1c 6.1 % Last Edit by RICKIE Early on 03/15/24 11:12 Immunizations Fluarix Triv [id number] (PF) 45 mcg (15 mcg x 3)/0.5 mL IM syringe Performing Provider: Lesly Pinto MD [place] [facility] Administered by: RICKIE Kaur on 03/15/24 11:10 Dose Route Admin Location Dispensed Lot Number Expiration Date [facility] Clinical Coordinator 0.5 mL IM Left Deltoid 0.5 mL [id number] 11/22/24 48841-460-30 [employer] VIS Given Date VIS Provided VIS Publication Date 03/15/24 Single Vaccine 20 Eligibility Eligibility Date Funding Source Not [facility] Eligible 03/15/24 Private Coding Level of Care Code Est Pt Level 4 (11495) Diagnoses Endometrial intraepithelial neoplasia (EIN) N85.02 Essential hypertension I10 Hypertension type: essential hypertension Hypercholesterolemia E78.00 Gastroesophageal reflux disease without esophagitis K21.9 Esophagitis presence: without esophagitis Type 2 diabetes mellitus with hyperglycemia, without long-term current use of insulin E11.65 Diabetes mellitus longterm insulin use: without filler leaf cutter long use Colon cancer screening Z12.11 Assessment & Plan Assessment & Plan (1) Endometrial intraepithelial neoplasia (EIN): Comment: February 2024 Code(s): N85.02 - Endometrial intraepithelial neoplasia [EIN] Category: Medical Plan: Patient is being followed up by gynecology (2) Hypertension: Code(s): I10 - Essential (primary) hypertension Category: Medical Qualifiers: Hypertension type: essential hypertension Qualified Code(s): I10 - Essential (primary) hypertension Plan: Continue with blood pressure medication. Decrease salt intake and exercise takes amlodipine 2.5 mg once a day lisinopril 40 mg once a day metoprolol 100 mg twice a day. (3) Hypercholesterolemia: Code(s): E78.00 - Pure hypercholesterolemia, unspecified Category: Medical Plan: Avoid fried foods, chicken skin, eggs, butter margarine, pastries and meat. Be it pork or beef they have a lot of cholesterol LDL goal of less than 100 on atorvastatin 20 mg once a day (4) GERD (gastroesophageal reflux disease): Code(s): K21.9 - Gastro-esophageal reflux disease without esophagitis Category: Medical Qualifiers: Esophagitis presence: without esophagitis Qualified Code(s): K21.9 - Gastro-esophageal reflux disease without esophagitis Plan: Avoid the foods that causes that usually spicy foods, tomato products, juices, coffee, soda and foods that your sensitive to. After eating do not lie down, allow 3-4 hours before in lie down. And keep the head of bed above 30 degrees to avoid the acid from going up. (5) Type 2 diabetes mellitus with hyperglycemia: Comment: [facility] Code(s): E11.65 - Type 2 diabetes mellitus with hyperglycemia Category: Medical Qualifiers: Diabetes mellitus filler leaf cutter long insulin use: without filler leaf cutter long use Qualified Code(s): E11.65 - Type 2 diabetes mellitus with hyperglycemia Plan: Decrease the amount of carbohydrate intake, pasta, bread, rice and potatoes are all sugar and that is aside from all the sweet stuff, remember that fruits are good but they are Sweet also. Hemoglobin A1c goal of less than 7.0 patient is taking metformin a 1000 mg once a day and semaglutide once a week. (6) Colon cancer screening: Code(s): Z12.11 - Encounter for screening for malignant neoplasm of colon Category: Medical Plan: Patient is going to be scheduled by Gastroenterology Orders: Orders Free T4 (Free Thyroxine) 3 Months - Type 2 diabetes mellitus with hyperglycemia UA CC w/rflx Micro + Cult 3 Months - Type 2 diabetes mellitus with hyperglycemia, R30.0 - Dysuria Thyroid Stimulating Hormone 3 Months - Type 2 diabetes mellitus with hyperglycemia Vitamin B12 and Folate 3 Months - Type 2 diabetes mellitus with hyperglycemia Hemoglobin A1c 3 Months - Type 2 diabetes mellitus with hyperglycemia Uric Acid 3 Months - Type 2 diabetes mellitus with hyperglycemia Influenza [id number] Immunization Today Z23 - Encounter for immunization Complete Blood Count Auto Diff 3 Months - Type 2 diabetes mellitus with hyperglycemia Comprehensive Met. Panel 3 Months - Type 2 diabetes mellitus with hyperglycemia Lipid Panel 3 Months - Type 2 diabetes mellitus with hyperglycemia, E78.00 - Pure hypercholesterolemia, unspecified Vitamin D 25-OH Total 3 Months E11.65 - Type 2 diabetes mellitus with hyperglycemia AMB Hemoglobin A1c Today Z13.9 - Encounter for screening, unspecified Medications: Refilled alprazolam 0.25 mg PO BEDTIME PRN 10 tabs 0RF anxiety F31.32 - Bipolar disorder, current episode depressed, moderate
[2024-03-15 10:51] VITALS: BP 130/70; PULSE 93; O2SAT 97; BMI 35.1
== END 2024-03-15 11:21 | disposition home or self-care (01) ==
PROVIDERS: PCP Internal Medicine; Visit Provider Internal Medicine
DX: I10 Essential (primary) hypertension (principal); E78.00 Pure hypercholesterolemia, unspecified; E11.65 Type 2 diabetes mellitus with hyperglycemia; N85.02 Endometrial intraepithelial neoplasia [EIN]; K21.9 Gastro-esophageal reflux disease without esophagitis; Z12.11 Encounter for screening for malignant neoplasm of colon

== ENCOUNTER → 2024-03-15 10:45 | Outpatient (BNVA) | payer OTHER, MEDICARE, SELFPAY | PROVIDERS: PCP Internal Medicine; Visit Provider Internal Medicine | DX: N85.02 Endometrial intraepithelial neoplasia [EIN] (principal); I10 Essential (primary) hypertension; E78.00 Pure hypercholesterolemia, unspecified; K21.9 Gastro-esophageal reflux disease without esophagitis; E11.65 Type 2 diabetes mellitus with hyperglycemia; Z79.84 Long term (current) use of oral hypoglycemic drugs; Z79.85 Long-term (current) use of injectable non-insulin antidiabetic drugs; Z79.899 Other long term (current) drug therapy; Z23 Encounter for immunization | CPT/HCPCS: 83036; 90471; 90656 ==

== ENCOUNTER 2024-07-06 13:23 | Outpatient (REF) | payer OTHER, MEDICARE, SELFPAY ==
[2024-07-06 13:44] LABS: MANUAL DIFF FLAG NO
--- OUTSIDE RECORDS SUMMARY | 2024-07-06 14:31 | XMS_ITS ---
Author Organization [facility] Address [address] [place] [address] Care Team Providers Care Public Welfare Director Name Role Phone Lesly Pinto MD Primary Care Provider Jf Renee [phone] REASON FOR VISIT R/S procedure Encounters Encounter Location Date Provider Diagnosis [facility] [address] [place] [address] 10/28/2023 Jf Mercado PLAN OF TREATMENT No Information
--- OUTSIDE RECORDS SUMMARY | 2024-07-06 14:31 | XMS_ITS ---
Author Organization [facility] Address [address] [place] [address] Care Team Providers Care Bone Drier Name Role Phone Po Lesly BAKER Primary Care Provider Jf Renee [phone] REASON FOR VISIT colonoscopy,diarrhea Encounters Encounter Location Date Provider Diagnosis [facility] [place] [address] [place], [place] [phone] 10/24/2023 Jf Mercado PLAN OF TREATMENT No Information
--- OUTSIDE RECORDS SUMMARY | 2024-07-06 14:31 | XMS_ITS ---
Author Organization [facility] Address [address] [place] [address] Care Team Providers Care Apprentice Painter Brush Name Role Phone Lesly Pinto MD Primary Care Provider Jf Renee [phone] REASON FOR VISIT diarrhea, colonoscopy, satiety, gerd Encounters Encounter Location Date Provider Diagnosis [facility] [address] [place], [place] [phone] 06/20/2023 Jf Mercado PLAN OF TREATMENT No Information
--- OUTSIDE RECORDS SUMMARY | 2024-07-06 14:31 | XMS_ITS | Patient Health Record ---
Author Organization [facility] Address [address] [place] [address] Care Team Providers Care Product Grader Name Role Phone Lesly Pinto MD Primary Care Provider Jf Renee Unavailable [phone] ALLERGIES No Known Allergies RESULTS Component Value Reference Range Notes Glucose, Whole Blood Reviewed date:10/24/2023 04:37:02 PM Interpretation: Performing Lab:[facility], [address] [place] [phone] Notes/Report: Glucose, Whole Blood 114 60-115 mg/dL METER # : [id number] REASON FOR REFERRAL No Information MEDICATIONS Medication SIG (Take, Route, Frequency, Duration) Notes Start Date End Date Status Meloxicam 15 MG TAKE 1 TABLET BY ADRY TH DAILY Diagnosis Unavailable Oral for 90 Active Atorvastatin Calcium 20 MG TAKE 1 TABLET BY MOUTH DAILY Diagnosis Unavailable Oral for 90 Active Pregabalin 50 MG Oral for 30 A ctive ALPRAZolam 0.25 MG Oral for 10 Active Omeprazole 20 MG Oral for 90 A ctive Mirtazapine 7.5 MG Oral for 30 Active Lisinopril 40 MG TAKE 1 TABLET BY ADRY TH DAILY Diagnosis Unavailable Oral for 90 Active Dicyclomine HCl 10 MG TAKE 1 CAPSULE BY MOUTH FOUR TIMES DAILY NEEDED FOR ABDOMINAL DISCOMFORT Diagnosis Unavailable Oral for 3 Active metFORMIN HCl 1000 MG TAKE 1 TABLET BY M OUTH TWICE DAILY Diagnosis Unavailable Oral for 90 Active Vitamin D 25 MCG (1000 UT) 1 tablet Oral ly Once a day for 30 day(s) Active hydroCHLOROthiazide 25 MG Oral for 30 Active Metoprolol Tartrate 50 MG TAKE 1 AND 1/2 TABLETS BY MOUTH TWICE DAILY Diagnosis Unavailable Oral for 90 Active Cholestyramine 4 GM/DOSE use anywhere fr 1/4 up to 1 scoop in at least 8 ounces of water or orange juice Orally Once or twice a day to help with diarrhea for 30 day(s) 10/31/2022 Active Ondansetron 4 MG Oral for 3 Ac tive DULoxetine HCl 60 MG TAKE 1 CAPSULE BY M OUTH DAILY Diagnosis Unavailable Oral for 90 Active SOCIAL HISTORY Tobacco Use: Social History Observation Description Date Details (start date - stop date) Never Smoker NA - NA Sex Assigned At : Social History Observation Description Sex Assigned At Unknown Tobacco Use/Smoking Question Answer Notes Patient is a nonsmoker Alcohol Screen Question Answer Notes Did you have a drink contain ing alcohol in the past year? Yes How often did you have a dri nk containing alcohol in the past year? Never (0 point) How many drinks did you have on a typical day when you were drinking in the past year? 1 or 2 drinks (0 point) How often did you have 6 or more drinks on one occasion in the past year? Never (0 point) Points 0 Interpretation Negative PROBLEMS Problem Type ICD Code Onset Dates Problem Status W/U Status Risk SNOMED Code Notes Problem Diarrhea, unspecified type (R19.7) Active confirmed 29889893 Problem Early satiety (R68.81) Active confirmed 012217764 Problem Colon cancer screening (Z12.11) Active confirmed 245565932 Problem Gastroesophageal reflux disease, unspecified whether esophagitis present (K21.9) Active confirmed [id number] Encounters Encounter Location Date Provider Diagnosis [facility] [place] [address] [place], [place] [phone] 10/24/2023 Jf Mercado [facility] [address] [place] [address] 10/28/2023 Jf Mercado PLAN OF TREATMENT Future Test Test Name Order Date UPPER GI ENDOSCOPY 10/29/2022 COLONOSCOPY 10/29/2022 Insurance Providers Payer Name Payer Address Payer Phone Subscriber Number Group Number Insured Name Patient Relationship to Insured Coverage Start Date Coverage End Date [facility] [address] [place] [phone] [id number] MYLENE GARCIA Self - patient is the insured MEDICAL (GENERAL) HISTORY Medical History History ICD Code fibromyalgia Arthritis hypertension hypercholesterolemia type II diabetes Surgical History Surgery Date(Month/Year) Tonsillectomy Appendectomy Cyst removal on ovaries CCY
[2024-07-06 15:27] LABS: Basophils Absolute Auto 0.1 X10*3/uL (0.0-0.2); Basophils Percent Auto 0.8 % (0-2); Eosinophils Absolute Auto 0.7 X10*3/uL (0.0-0.4); Hematocrit 43.7 % (37.0-47.0); Hemoglobin 14.4 g/dl (12.0-16.0); Imm Gran Abs Auto 0.04 X10*3/uL (0.00-0.03); Imm Gran Pct Auto 0.5 % (0.0-0.4); Lymphocytes Absolute Auto 1.3 X10*3/uL (1.2-4.9); Lymphocytes Percent Auto 18.2 % (20-40); Mean Corpuscular Hemoglobin 29.1 pg (27.0-33.0); Mean Corpuscular Volume 88.5 fL (80.0-98.0); Mean Platelet Volume 11.4 fL (9.4-12.3); Monocytes Absolute Auto 0.6 X10*3/uL (0.1-1.2); Monocytes Percent Auto 7.7 % (2-11); Neutrophils Absolute Auto 4.7 x10*3/uL (2.0-8.3); Neutrophils Percent Auto 63.8 % (45-73); Platelet Count 305 X10*3/uL (160-400); Red Blood Count 4.94 X10*6/uL (4.20-5.50); Red Cell Distribution Width 15.2 % (11.0-16.0); White Blood Count 7.4 X10*3/uL (4.8-10.8)
[2024-07-06 15:27] LABS: Appearance Urine Turbid; Color Urine Yellow; Glucose Urine UA Negative (Negative); Leukocyte Esterase Urine Small (1+) (Negative); Nitrite Urine Negative (Negative); PH 5.5 (5.0-9.0); Specific Gravity - Urine 1.025 (1.005-1.025); UMIC TRIGGER UACC YES; Urine Blood Large (3+) (Negative); Urine Ketones Negative (Negative); Urine Protein Trace mg/dL (Neg-Trace)
[2024-07-06 15:43] LABS: Bacteria Urine 4+ (None Seen); Hyaline Casts Urine 0-2 /LPF (0-2); RBC Urine >20 /HPF (0-2); Squamous Epithelial Cell Urine >20 /HPF (0-2); UACC Culture Trigger YES; WBC Urine 21-50 /HPF (0-5)
[2024-07-06 16:13] LABS: Estimated Average Glucose 120 mg/dL; Hemoglobin A1C 147.9653 umol/L; Hemoglobin A1c % 5.8 % (<6.0); Total Hemoglobin (HGBA1C) 3691.6295 umol/L
[2024-07-06 16:29] LABS: Folate 11.7 ng/mL (> or = 4.0); Vitamin B12 381 pg/mL (200-900)
[2024-07-06 17:58] LABS: Alanine Aminotransferase 19 U/L (0-31); Albumin Level 4.3 g/dL (3.5-5.0); Alkaline Phosphatase 115 U/L (39-117); Anion Gap 11 (12-20); Aspartate Amino Transferase 19 U/L (5-31); Bilirubin Total 0.6 mg/dL (0.0-1.0); Blood Urea Nitrogen 24 mg/dL (9-16); Calcium 9.7 mg/dL (8.4-10.2); Carbon Dioxide 24 mmol/L (22-29); Chloride 109 mmol/L (96-108); Cholesterol 175 mg/dL (<200); Estimated Glomerular Filt Rate > 60; Glucose Random 114 mg/dL (60-115); HDL Cholesterol 47 mg/dL (>40); LDL Cholesterol Calculated 96 mg/dL (<100); Potassium 4.3 mmol/L (3.3-5.1); Sodium 140 mmol/L (135-145); Total Protein 8.4 g/dL (6.5-8.0); Triglycerides 160 mg/dL (<150); Uric Acid 8.7 mg/dL (2.4-5.7)
[2024-07-06 18:19] LABS: Free T4 (Free Thyroxine) 1.03 ng/dL (0.71-1.85); Thyroid Stimulating Hormone 0.63 uIU/mL (0.32-4.0); Vitamin D 25-OH Total 29.5 ng/mL (>30)
== END 2024-07-06 13:24 | disposition home or self-care (01) ==
LOC: HO.LAB 13:23
PROVIDERS: PCP Internal Medicine; Visit Provider Internal Medicine
DX: M79.675 Pain in left toe(s) (principal); E11.65 Type 2 diabetes mellitus with hyperglycemia; E78.00 Pure hypercholesterolemia, unspecified
CPT/HCPCS: 36415; 80053; 80061; 81001; 82306; 82607; 82746; 83036; 84439; 84443; 84550; 85025; 87086

== ENCOUNTER 2024-07-07 08:45 | Outpatient (AMB) | payer OTHER, MEDICARE, SELFPAY ==
[2024-07-07 08:50] VITALS: BP 130/82; PULSE 75; O2SAT 96; BMI 35.5
--- NOTE | 2024-07-07 08:50 | A.OFFPC_ITS ---
Vital Signs 07/07/24 08:50 Height 5 ft 2 in Weight 194 lb BMI 35.5 BP 130/82 Blood Pressure Location Lt brachial Position Sitting Pulse 75 Pulse Source Pulse Oximeter Pulse Oximetry (%) 96 Oxygen Delivery Method Room Air Intake Visit Reasons: DM Allergies No Known Allergies Allergy (Verified 07/07/24 08:50) Tobacco use date assessed: 07/07/24 Fall risk assessment: No Falls in past year Last assessed Fall Risk: 07/07/24 Dental Screening Dental Screen Date: 07/07/24 Did you have a dental visit in the last 12 months?: Yes Did you have a dental problem in the last 6 months where you did not have access to dental care?: No Was dental information given to patient?: Patient has dentist HPI DM HPI Details The patient is a 69-year-old female presenting for follow-up post-total hysterectomy and bilateral salpingo-oophorectomy, performed in May 2024 for endometrial carcinoma. The patient has a complex medical history, including obesity, GERD, bipolar disorder, peripheral neuropathy, hypercholesterolemia, and essential hypertension. Her diabetes mellitus is managed with metformin 1000 mg daily and semaglutide 1 mg weekly. Her blood glucose is stable, with recent hemoglobin A1c at 5.8%. Hypercholesterolemia is controlled with atorvastatin 20 mg daily, with LDL at 96 mg/dL. The patient reported elevated uric acid and mildly elevated triglycerides. She is experiencing symptoms suggestive of a urinary tract infection, corroborated by urinalysis indicating 21 to 50 white blood cells. She is currently awaiting antibiotics to manage this condition. Additionally, she experiences peripheral neuropathic symptoms, describing it as electric sen sations similar to prior carpal tunnel issues, though she opts against further surgical interventions. Recent imaging revealed lumbar multilevel degenerative disc disease with facet arthropathy and L3-L4 and L4-L5 suspected canal stenosis, contributing to potential back-related discomfort. Her postoperative recovery includes controlled blood counts, and kidney and liver functions are stable. [facility] Medical History (Updated 06/22/24 @ 18:00 by Lesly Pinto MD) Type 2 diabetes mellitus with hyperglycemia Cervical cancer screening Hypercholesterolemia Hypertension Osteoarthritis of left knee Diabetes Numbness Age-related osteoporosis without current pathological fracture Knee pain, bilateral Left leg pain Annual physical exam Preop exam for internal medicine Cataract BMI 37.0-37.9, adult Bipolar 2 disorder Arthritis Diverticulosis BMI 38.0-38.9,adult Obesity Carpal tunnel syndrome Anxiety Insomnia Vitamin D deficiency GERD (gastroesophageal reflux disease) Fibromyalgia Surgical History H/O left knee surgery History of cataract surgery H/O ovarian cystectomy History of colonoscopy History of discectomy History of carpal tunnel release History of tonsillectomy History of cholecystectomy History of appendectomy Family History Father Hypertension CVD (cardiovascular disease) Cancer Mother Hypertension Diabetes Maternal Aunt Colon cancer Father No problems noted. Sister Diabetes Sister Diabetes Sister Diabetes Brother Diabetes Son No problems noted. Son No problems noted. Social History Household Members: Spouse Housing: House Are you a primary congregational care pastor to a significant other at home: No Do you presently have visiting nurse or other home services: No Alcohol intake: current Alcohol intake frequency: holidays/special occasions only Patient Tobacco Use Status: Never used Tobacco Tobacco use type: Cigarette e-Cigarette/Vaping Use: Never Used Second Hand Smoke Exposure: No service: No Current occupational status: employed Cognitive needs: No Hearing needs: No Vision needs: Yes (glasses) Questionnaire PHQ-9 Over the last 2 weeks, how often have you been bothered by any of the following problems? 1. Little interest or pleasure in doing things: several days 2. Feeling down, depressed, or hopeless: several days 3. Trouble falling or staying asleep, or sleeping too much: not at all 4. Feeling tired or having little energy: not at all 5. Poor appetite or overeating: several days 6. Feeling bad about yourself - or that you are a failure or have let yourself or your family down: not at all 7. Trouble concentrating on things, such as reading the newspaper or watching television: not at all 8. Moving or speaking so slowly that other people could have noticed. Or the opposite - being so fidgety or restless that you have been moving around a lot more than usual: not at all 9. Thoughts that you would be better off or of hurting yourself in some way: not at all Total score: 3 Depression Screening Interpretation: Negative Depression Screening Done: Yes Source: Developed by Drs. Jf Marcelo, Bradley Henning and colleagues, with an educational jada from [employer]. Thrive Questionnaire Date Thrive assessed: 06/30/23 I am a: Patient What is your living situation today?: I have a steady place to live Within the past 12 months, did the food you bought not last and you didn't have the money to get more?: Never true Within the past 12 months, did you worry whether your food would run out before you got money to buy more?: Never true Do you have trouble paying for medicines?: No Do you have trouble getting transportation to medical appointments?: No Do you have trouble paying your heating and electricity bill?: No Do you have trouble taking care of your child, family member or friend?: No Do you have trouble with day-to-day activities such as bathing, preparing meals, shopping, managing finances, etc.?: No Are you currently unemployed and looking for a job?: No Are you interested in more education?: No Currently or been in a relationship where the following occur: No concerns reported THRIVE Score: 0 AUDIT C Alcohol Use Questionnaire (AUDIT-C) 1. How often do you have a drink containing alcohol?: Monthly or less 2. How many drinks containing alcohol do you have on a typical day when you are drinking?: 1 or 2 3. How often do you have six or more drinks on one occasion?: Never Total Score: 1 PABLO-7 AMB Questionnaire PABLO-7 Date PABLO - 7 assessed: 07/07/24 Feeling nervous, anxious, or on edge: 0 = Not at all Not being able to stop or control worryin = Not at all Worrying too much about different things: 0 = Not at all Trouble relaxin = Not at all Being so restless that it is hard to sit still: 0 = Not at all Becoming easily annoyed or irritable: 0 = Not at all Feeling afraid as if something awful might happen: 0 = Not at all Total PABLO-7 score (0-4 normal; 5-9 mild; 10-14 moderate; 15-21 severe): 0 Source: Developed by Drs. Jf Marcelo, Bradley Henning and colleagues, with an educational jada from [employer]. Physical exam (Primary Care) Vital Signs: Last Vital Signs Pulse 75 07/07/24 08:50 BP 130/82 07/07/24 08:50 Pulse Ox 96 07/07/24 08:50 Oxygen Delivery Method Room Air 07/07/24 08:50 BMI result Body Mass Index 35.5 Tobacco/Smoking Status: Tobacco use Status Tobacco use date assessed 07/07/24 07/07/24 09:00 Patient Tobacco Use Status Never used Tobacco 07/07/24 09:00 Tobacco use type Cigarette 07/07/24 09:00 e-Cigarette/Vaping Use Never Used 07/07/24 09:00 PHQ-9: PHQ-9 Score PHQ-9: Total score 3 07/07/24 09:00 Depression Screening Interpretation: Negative Thrive Assessment: Date of Thrive Assessment Date Thrive assessed 06/30/23 07/07/24 09:00 Currently or been in a relationship where the following occur: No concerns reported Const General: alert; No acute distress Eyes Conjunctivae: conjunctivae normal Resp Auscultation: clear to auscultation bilaterally Cardio Rate: regular rate Rhythm: regular rhythm GI Inspection: Yes normal to inspection Extrem General: Yes normal to inspection and No edema Coding Level of Care Code Est Pt Level 4 (39063) Complex EM visit Add On G2211 Diagnoses Endometrial intraepithelial neoplasia (EIN) N85.02 Type 2 diabetes mellitus with hyperglycemia, without long-term current use of insulin E11.65 Diabetes mellitus remote computer terminal operator insulin use: without fpc use Hypercholesterolemia E78.00 Essential hypertension I10 Hypertension type: essential hypertension Gastroesophageal reflux disease without esophagitis K21.9 Esophagitis presence: without esophagitis Assessment & Plan Assessment & Plan (1) Endometrial intraepithelial neoplasia (EIN): Comment: February 2024 Total abdominal hysterectomy with bilateral salpingo-oophorectomy May 2024 Code(s): N85.02 - Endometrial intraepithelial neoplasia [EIN] Category: Medical Plan: Continue to follow-up with Oncology and Gynecology. Status post TAHBSO. (2) Type 2 diabetes mellitus with hyperglycemia: Comment: [facility] Code(s): E11.65 - Type 2 diabetes mellitus with hyperglycemia Category: Medical Qualifiers: Diabetes mellitus remote computer terminal operator insulin use: without remote computer terminal operator use Qualified Code(s): E11.65 - Type 2 diabetes mellitus with hyperglycemia Plan: Decrease the amount of carbohydrate intake, pasta, bread, rice and potatoes are all sugar and that is aside from all the sweet stuff, remember that fruits are good but they are Sweet also. Hemoglobin A1c goal of less than 6.5. Patient is on metformin 1000 mg once a day and semaglutide 1 mg once a week. (3) Hypercholesterolemia: Code(s): E78.00 - Pure hypercholesterolemia, unspecified Category: Medical Plan: Avoid fried foods, chicken skin, eggs, butter margarine, pastries and meat. Be it pork or beef they have a lot of cholesterol LDL goal of less than 100 and triglyceride of less than 150. On atorvastatin 20 mg once a day (4) Hypertension: Code(s): I10 - Essential (primary) hypertension Category: Medical Qualifiers: Hypertension type: essential hypertension Qualified Code(s): I10 - Essential (primary) hypertension Plan: Continue with blood pressure medication. Decrease salt intake and exercise patient takes metoprolol 100 mg twice a day lisinopril 40 mg once a day hydrochlorothiazide 12.5 mg once a day and amlodipine 2.5 mg once a day. (5) GERD (gastroesophageal reflux disease): Code(s): K21.9 - Gastro-esophageal reflux disease without esophagitis Category: Medical Qualifiers: Esophagitis presence: without esophagitis Qualified Code(s): K21.9 - Gastro-esophageal reflux disease without esophagitis Plan: Avoid the foods that causes that usually spicy foods, tomato products, juices, coffee, soda and foods that your sensitive to. After eating do not lie down, allow 3-4 hours before in lie down. And keep the head of bed above 30 degrees to avoid the acid from going up. Plan - Continue diabetes management with metformin and increase semaglutide from 1 mg to 2 mg weekly to achieve optimal weight loss and glycemic control. - Maintain current hypercholesterolemia management with atorvastatin, reassess lipid levels regularly. - Monitor essential hypertension; adjust antihypertensive regimen if blood pressure consistently falls below acceptable thresholds 110 systolic). - Initiate antibiotic treatment for the urinary tract infection; monitor symptoms and adjust treatment based on response. - Follow up with oncology and gynecology to monitor for potential spread of endometrial carcinoma; maintain regular oncological assessments. - Encourage lifestyle modifications, focusing on weight management through diet and exercise. - Provide patient-reported symptoms of peripheral neuropathy with non-surgical management, including potential physical therapy or conservative measures. - Monitor bone density and ensure continuation of osteoporosis prevention measures. - Recommend continued cancer screenings commensurate with personal and familial health history. Medications: Changed From semaglutide for 4 doses 1 mg (0.75 mL) subcut QWEEK 30 days 3.75 mL 3RF E11.65 - Type 2 diabetes mellitus with hyperglycemia To semaglutide for 4 doses 2 mg (0.75 mL) subcut QWEEK 30 days 3.75 mL 3RF E11.65 - Type 2 diabetes mellitus with hyperglycemia
--- OUTSIDE RECORDS SUMMARY | 2024-07-07 09:40 | XMS_ITS ---
Author Organization [facility] Address [address] [place] [address] Care Team Providers Care Casing Material Weigher Name Role Phone Lesly Pinto MD Primary Care Provider Jf Renee [phone] REASON FOR VISIT R/S procedure Encounters Encounter Location Date Provider Diagnosis [facility] [address] [place] [address] 10/28/2023 Jf Mercado PLAN OF TREATMENT No Information
--- OUTSIDE RECORDS SUMMARY | 2024-07-07 09:40 | XMS_ITS | Patient Health Record ---
Author Organization [facility] Address [address] [place] [address] Care Team Providers Care Hat Presser Name Role Phone Lesly Pinto MD Primary Care Provider Jf Renee Unavailable [phone] ALLERGIES No Known Allergies RESULTS Component Value Reference Range Notes Glucose, Whole Blood Reviewed date:10/24/2023 04:37:02 PM Interpretation: Performing Lab:[facility], [address] [place] [phone] Notes/Report: Glucose, Whole Blood 114 60-115 mg/dL METER # : [id number] REASON FOR REFERRAL No Information MEDICATIONS Medication [...] Problem Diarrhea, unspecified type (R19.7) Active confirmed 60748838 Problem Early satiety (R68.81) Active confirmed 735011855 Problem Colon cancer screening (Z12.11) Active confirmed 936637143 Problem Gastroesophageal reflux disease, unspecified whether esophagitis present (K21.9) Active confirmed 427443940 Encounters Encounter Location Date Provider Diagnosis [facility] [place] [address] [place], [place] [phone] 10/24/2023 Jf Mercado [facility] [address] [place] [address] 10/28/2023 Jf Mercado PLAN OF TREATMENT Future Test Test Name Order Date UPPER GI ENDOSCOPY 10/29/2022 COLONOSCOPY 10/29/2022 Insurance Providers Payer Name Payer Address Payer Phone Subscriber Number Group Number Insured Name Patient Relationship to Insured Coverage Start Date Coverage End Date [facility] [address] [place] [phone] [id number] MYLENE GARCIA Self - patient is the insured MEDICAL (GENERAL) HISTORY Medical History History ICD Code fibromyalgia Arthritis hypertension hypercholesterolemia type II diabetes Surgical History Surgery Date(Month/Year) Tonsillectomy Appendectomy Cyst removal on ovaries CCY
--- OUTSIDE RECORDS SUMMARY | 2024-07-07 09:40 | XMS_ITS ---
Author Organization [facility] Address [address] [place] [address] Care Team Providers Care Fumigator And Sterilizer Name Role Phone Po Lesly BAKER Primary Care Provider Jf Renee [phone] REASON FOR VISIT colonoscopy,diarrhea Encounters Encounter Location Date Provider [place] [facility] [place] [address] [place], [place] [phone] 10/24/2023 Jf Mercado PLAN OF TREATMENT No Information
--- OUTSIDE RECORDS SUMMARY | 2024-07-07 09:40 | XMS_ITS ---
Author Organization [facility] Address [address] [place] [address] Care Team Providers Care Loop Puller Name Role Phone Lesly Pinto MD Primary Care Provider Jf Renee [phone] REASON FOR VISIT diarrhea, colonoscopy, satiety, gerd Encounters Encounter Location Date Provider Diagnosis [facility] [place] [address] [place], [place] [phone] 06/20/2023 Jf Mercado PLAN OF TREATMENT No Information
== END 2024-07-07 09:27 | disposition home or self-care (01) ==
PROVIDERS: PCP Internal Medicine; Visit Provider Internal Medicine
DX: N85.02 Endometrial intraepithelial neoplasia [EIN] (principal); E11.65 Type 2 diabetes mellitus with hyperglycemia; E78.00 Pure hypercholesterolemia, unspecified; I10 Essential (primary) hypertension; K21.9 Gastro-esophageal reflux disease without esophagitis

== ENCOUNTER 2024-10-07 14:06 | Outpatient (AMB) | payer OTHER, MEDICARE, SELFPAY ==
[2024-10-07 14:23] VITALS: BP 134/78; PULSE 76; O2SAT 97; BMI 36.8
--- NOTE | 2024-10-07 14:23 | MHC.PC.OV ---
Vital Signs 10/07/24 14:23 Height 5 ft 2 in Weight 201 lb BMI 36.8 BP 134/78 Blood Pressure Location Lt brachial Position Sitting Pulse 76 Pulse Source Pulse Oximeter Pulse Oximetry (%) 97 Oxygen Delivery Method Room Air Intake Visit Reasons: 3 MON FUP- see comments Allergies No Known Allergies Allergy (Verified 10/07/24 14:23) Medication List - Last Reconciled 10/07/24 by Lesly Pinto MD acetaminophen 650 mg (2 x 325 mg) PO Q6H PRN 30 days alprazolam 0.25 mg PO BEDTIME PRN amlodipine 2.5 mg PO DAILY atorvastatin 20 mg PO DAILY 90 days blood sugar diagnostic (FreeStyle Lite Strips) As directed check the BS QD blood-glucose meter (FreeStyle Lite Meter kit) As directed duloxetine (Cymbalta) 60 mg PO DAILY 90 days gabapentin 300 mg PO BID hydrochlorothiazide 12.5 mg PO DAILY indomethacin 50 mg PO BID lancets (FreeStyle Lancets) As directed check BS QD lisinopril 40 mg PO DAILY melatonin 10 mg PO BEDTIME PRN metformin 1,000 mg PO DAILY metoprolol tartrate 100 mg PO BID 90 days mirtazapine 7.5 mg PO BEDTIME PRN nitrofurantoin monohyd/m-cryst 100 mg (Macrobid) 100 mg PO Q12H 7 days omeprazole 20 mg PO DAILY 90 days semaglutide 2 mg (0.75 mL) subcut QWEEK 30 days tranexamic acid 1,300 mg (2 x 650 mg) PO TID 5 days Tobacco use date assessed: 07/07/24 Fall risk assessment: 1 Fall in past year Last assessed Fall Risk: 10/07/24 Dental Screening Dental Screen Date: 07/07/24 HPI 3 MON FUP- see comments HPI Details radiation done- [place] cancer screening [facility] Medical History (Updated 10/07/24 @ 15:37 by Lesly Pinto MD) Type 2 diabetes mellitus with hyperglycemia Cervical cancer screening Hypercholesterolemia Hypertension Osteoarthritis of left knee Diabetes Numbness Age-related osteoporosis without current pathological fracture Knee pain, bilateral Left leg pain Annual physical exam Preop exam for internal medicine Cataract BMI 37.0-37.9, adult Bipolar 2 disorder Arthritis Diverticulosis BMI 38.0-38.9,adult Obesity Carpal tunnel syndrome Anxiety Insomnia Vitamin D deficiency GERD (gastroesophageal reflux disease) Fibromyalgia Surgical History H/O left knee surgery History of cataract surgery H/O ovarian cystectomy History of colonoscopy History of discectomy History of carpal tunnel release History of tonsillectomy History of cholecystectomy History of appendectomy Family History Father Hypertension CVD (cardiovascular disease) Cancer Mother Hypertension Diabetes Maternal Aunt Colon cancer Father No problems noted. Sister Diabetes Sister Diabetes Sister Diabetes Brother Diabetes Son No problems noted. Son No problems noted. Social History Household Members: Spouse Housing: House Are you a primary home visit field care manager to a significant other at home: No Do you presently have visiting nurse or other home services: No Alcohol intake: current Alcohol intake frequency: holidays/special occasions only Patient Tobacco Use Status: Never used Tobacco Tobacco use type: Cigarette e-Cigarette/Vaping Use: Never Used Second Hand Smoke Exposure: No service: No Current occupational status: employed Cognitive needs: No Hearing needs: No Vision needs: Yes (glasses) Questionnaire PHQ-9 Over the last 2 weeks, how often have you been bothered by any of the following problems? 1. Little interest or pleasure in doing things: not at all 2. Feeling down, depressed, or hopeless: several days 3. Trouble falling or staying asleep, or sleeping too much: nearly every day 4. Feeling tired or having little energy: more than half the days 5. Poor appetite or overeating: more than half the days 6. Feeling bad about yourself - or that you are a failure or have let yourself or your family down: not at all 7. Trouble concentrating on things, such as reading the newspaper or watching television: not at all 8. Moving or speaking so slowly that other people could have noticed. Or the opposite - being so fidgety or restless that you have been moving around a lot more than usual: not at all 9. Thoughts that you would be better off or of hurting yourself in some way: not at all Total score: 8 Depression Screening Interpretation: Positive Depression Screening Done: Yes Source: Developed by Ángel Dooleyet B.W. Kamron, Bradley Garcia and colleagues, with an educational jada from [employer]. Thrive Questionnaire Date Thrive assessed: 09/30/24 I am a: Patient What is your living situation today?: I have a steady place to live Within the past 12 months, did the food you bought not last and you didn't have the money to get more?: Never true Within the past 12 months, did you worry whether your food would run out before you got money to buy more?: Never true Do you have trouble paying for medicines?: No Do you have trouble getting transportation to medical appointments?: No Do you have trouble paying your heating and electricity bill?: No Do you have trouble taking care of your child, family member or friend?: No Do you have trouble with day-to-day activities such as bathing, preparing meals, shopping, managing finances, etc.?: No Are you currently unemployed and looking for a job?: No Are you interested in more education?: No Please select the resources that you would like help with: None Currently or been in a relationship where the following occur: No concerns reported THRIVE Score: 0 AUDIT C Alcohol Use Questionnaire (AUDIT-C) 1. How often do you have a drink containing alcohol?: Monthly or less Total Score: 1 PABLO-7 AMB Questionnaire PABLO-7 Date PABLO - 7 assessed: 07/07/24 Feeling nervous, anxious, or on edge: 1 = Several days Not being able to stop or control worryin = Not at all Worrying too much about different things: 0 = Not at all Trouble relaxin = Not at all Being so restless that it is hard to sit still: 0 = Not at all Becoming easily annoyed or irritable: 0 = Not at all Feeling afraid as if something awful might happen: 0 = Not at all Total PABLO-7 score (0-4 normal; 5-9 mild; 10-14 moderate; 15-21 severe): 1 Source: Developed by Drs. Jf Marcelo, Negar Lundy, Bradley Garcia and colleagues, with an educational jada from [employer]. Physical exam (Primary Care) Vital Signs: Last Vital Signs Pulse 76 10/07/24 14:23 BP 134/78 10/07/24 14:23 Pulse Ox 97 10/07/24 14:23 Oxygen Delivery Method Room Air 10/07/24 14:23 BMI result Body Mass Index 36.8 Tobacco/Smoking Status: Tobacco use Status Tobacco use date assessed 07/07/24 10/07/24 14:24 Patient Tobacco Use Status Never used Tobacco 10/07/24 14:24 Tobacco use type Cigarette 10/07/24 14:24 e-Cigarette/Vaping Use Never Used 10/07/24 14:24 PHQ-9: PHQ-9 Score PHQ-9: Total score 8 10/07/24 15:30 Depression Screening Interpretation: Positive Thrive Assessment: Date of Thrive Assessment Date Thrive assessed 09/30/24 10/07/24 14:24 Currently or been in a relationship where the following occur: No concerns reported Const General: alert; No acute distress Eyes Conjunctivae: conjunctivae normal Resp Auscultation: clear to auscultation bilaterally Cardio Rate: regular rate Rhythm: regular rhythm GI Inspection: Yes normal to inspection Extrem General: Yes normal to inspection and No edema Coding Level of Care Code Est Pt Level 4 (33454) Complex EM visit Add On G2211 Diagnoses Endometrial intraepithelial neoplasia (EIN) 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.02 Type 2 diabetes mellitus with hyperglycemia, without long-term current use of insulin E11.65 Diabetes mellitus extermination supervisor insulin use: without halfway use Essential hypertension I10 Hypertension type: essential hypertension Hypercholesterolemia E78.00 Bipolar affective disorder, currently depressed, moderate F31.32 Active/Remission status: currently active Current bipolar episode type: depressed Current episode severity: moderate Gastroesophageal reflux disease without esophagitis K21.9 Esophagitis presence: without esophagitis Assessment & Plan Assessment & Plan (1) Endometrial intraepithelial neoplasia (EIN): Comment: February 2024 Total abdominal hysterectomy with bilateral salpingo-oophorectomy May 2024 s/p radiation treatment [facility] cancer screening Code(s): N85.02 - Endometrial intraepithelial neoplasia [EIN] Category: Medical Plan: Status post hysterectomy patient continue to follow-up with gynecology. (2) Type 2 diabetes mellitus with hyperglycemia: Comment: [facility] Code(s): E11.65 - Type 2 diabetes mellitus with hyperglycemia Category: Medical Qualifiers: Diabetes mellitus halfway insulin use: without extermination supervisor use Qualified Code(s): E11.65 - Type 2 diabetes mellitus with hyperglycemia Plan: Decrease the amount of carbohydrate intake, pasta, bread, rice and potatoes are all sugar and that is aside from all the sweet stuff, remember that fruits are good but they are Sweet also. Hemoglobin A1c goal of less than 7.0. Patient is on metformin a 1000 mg once a day also on semaglutide 2 mg once a week (3) Hypertension: Code(s): I10 - Essential (primary) hypertension Category: Medical Qualifiers: Hypertension type: essential hypertension Qualified Code(s): I10 - Essential (primary) hypertension Plan: Continue with blood pressure medication. Decrease salt intake and exercise on metoprolol 100 mg twice a day lisinopril 40 mg once a day hydrochlorothiazide 12.5 mg once a and amlodipine 2.5 mg once a day (4) Hypercholesterolemia: Code(s): E78.00 - Pure hypercholesterolemia, unspecified Category: Medical Plan: Avoid fried foods, chicken skin, eggs, butter margarine, pastries and meat. Be it pork or beef they have a lot of cholesterol LDL goal of less than 100 and triglyceride of less than 150 on atorvastatin 20 mg once a day (5) Bipolar disorder: Code(s): F31.9 - Bipolar disorder, unspecified Category: Medical Qualifiers: Active/Remission status: currently active Current bipolar episode type: depressed Current episode severity: moderate Qualified Code(s): F31.32 - Bipolar disorder, current episode depressed, moderate Plan: Continue with present medication and discussed about counseling (6) GERD (gastroesophageal reflux disease): Code(s): K21.9 - Gastro-esophageal reflux disease without esophagitis Category: Medical Qualifiers: Esophagitis presence: without esophagitis Qualified Code(s): K21.9 - Gastro-esophageal reflux disease without esophagitis Plan: Avoid the foods that causes that usually spicy foods, tomato products, juices, coffee, soda and foods that your sensitive to. After eating do not lie down, allow 3-4 hours before in lie down. And keep the head of bed above 30 degrees to avoid the acid from going up. Plan History of Present Illness The patient is a 69-year-old female presenting with a follow-up visit for the management of chronic conditions and evaluation of a sleep disorder. She reports persistent difficulty with weight management, notably a 7-pound weight gain while on semaglutide, which has been a long-standing concern. She has been managing Type 2 Diabetes Mellitus with metformin and semaglutide, achieving a well-controlled HbA1c of 5.8%. Her regimen for hypertension and hyperlipidemia includes metoprolol, lisinopril, amlodipine, and atorvastatin, with stable values reported in recent tests, including an LDL of 96 mg/dL. Additionally, the patient has a history of endometrial adenocarcinoma, managed with a total abdominal hysterectomy and demonstrated negative surgical margins. Currently, she is experiencing exacerbation of fibromyalgia symptoms exacerbated by climate changes, specifically rain. These symptoms have led to reduced mobility and increased reliance on a cane for movement. The primary sleep concern is difficulty in maintaining sleep, with episodes of awakening around 12:30 AM, managed with mirtazapine without significant improvement. The patient reports starting her nights at 10:00 PM, but seldom achieves restful sleep exceeding 5 hours in summary, impacting daily function. Discussions included adjusting mirtazapine dosage and exploring alternative therapeutic interventions. Health Maintenance - Colonoscopy last performed in 2011. - Mammogram up to date. - Bone Density Assessment conducted in December 2022 indicates no current concerns. - Consideration for Shingles vaccination due to patient?s age and risk factors. - Digital Camera Technician regarding exercise and weight management, plans to increase activity with new sneakers. - Consistent monitoring of diabetes with a goal for HbA1c <7.0. - LDL goal of <100 mg/dL; currently managed with atorvastatin. - Updated vaccinations status, pending decision on shingles vaccine. Social History - Reports daughter living with the patient, concerning about caregiving and living conditions. - Reports using a cane for mobility due to fibromyalgia-associated discomfort. - Desires increased physical activity and has plans to walk more. - Expresses concerns about sleep quality and the ineffectiveness of current sleep aids. Review of Systems - Musculoskeletal: Reports pain in thighs, legs, neck, attributed to fibromyalgia symptoms; associated with weather changes. - Sleep: Reports difficulty maintaining sleep, frequent nocturnal awakenings. - Neurological: Denies dizziness or significant adverse effects related to pharmacotherapy. - Endocrine: Denies hypoglycemic episodes, recent HbA1c checks indicate control. - Cardiovascular: Denies new or changing symptoms related to hypertension management. Physical Exam Results - Labs: HbA1c 5.8% (June), LDL 96 mg/dL, normal liver and kidney function tests. - Tests and Diagnostics: Bone Density performed December 2022, showing normal results. Plan We will initiate Mounjaro for obesity management following noted weight gain on semaglutide and monitor the patient's response over the next three weeks, adjusting the dosage as needed. Her diabetes is well-controlled currently, and efforts to maintain the HbA1c target continue with current metformin management. The hypertension and hypercholesterolemia therapy with metoprolol, lisinopril, amlodipine, and atorvastatin remains unchanged, ensuring LDL goals remain below 100 mg/dL. The patient's sleep treatment plan includes increasing mirtazapine dosage to evaluate sleep maintenance improvements; alternatives will be considered depending on therapeutic response. We discussed retaining fibromyalgia management strategies with emphasis on exercise and mobility support. Routine health maintenance interventions were addressed, including a possible shingles vaccine, given risk factors and age. Monitoring of living conditions prompted dialogues on caregiving adequacy and health deterioration due to mobility challenges, emphasizing reinstated home safety and support. Patient was informed and verbally consented to the use of an ambient scribe for clinic note documentation during this visit. Discussion Notes I discussed the weight management plan, which involves transitioning from semaglutide to Mounjaro, explaining the expectations and proposed three-week evaluation period. We covered diabetes management's successes, emphasizing the importance of maintaining HbA1c <7.0. The patient is informed of her cholesterol and blood pressure targets, ensured continuity with atorvastatin and antihypertensive agents. We explored increasing mirtazapine dosing from 7.5 mg to 15 mg due to insufficient sleep maintenance, outlining the steps if further treatment changes are necessary. The patient was apprised of lifestyle adaptation recommendations for fibromyalgia, alongside discussing potential resources such as a disability license plate for mobility. The necessity of continued screenings, including the consideration of her status with up-to-date bone density and a pending shingles vaccine, was reiterated. Living situation concerns were discussed, with implied caregiver dynamics and potential interventions to address these conditions should further services be necessary. Patient Instructions - Take Mounjaro (tirzepatide) once weekly as newly prescribed. - Continue metformin and all current medications as directed. - Aim for maintaining blood pressure and cholesterol levels at recommended targets. - Increase mirtazapine to 15 mg at bedtime for better sleep. - Try to engage in daily exercises and mobility-friendly activities. - Monitor sleep pattern and report any enduring difficulties. - Discuss caregiver and living situation concerns with family members, evaluate necessary changes. - Consider the shingles vaccine and discuss it during the next visit. - Plan for follow-up monitoring of all medical conditions and routine screenings. Orders: Orders AMB Hemoglobin A1c Today Z13.9 - Encounter for screening, unspecified Medications: New tirzepatide (Mounjaro) 7.5 mg (0.5 mL) subcut QWEEK 2 mL 3RF E11.65 - Type 2 diabetes mellitus with hyperglycemia Changed From mirtazapine 7.5 mg PO BEDTIME PRN 90 tabs 1RF Insomnia E11.65 - Type 2 diabetes mellitus with hyperglycemia To mirtazapine 15 mg PO BEDTIME PRN 30 tabs 2RF Insomnia E11.65 - Type 2 diabetes mellitus with hyperglycemia Discontinued melatonin Discontinued Reason: Change Referral Type 10 mg PO BEDTIME PRN Insomnia semaglutide for 4 doses Discontinued Reason: Doctor's Order 2 mg (0.75 mL) subcut QWEEK 30 days 3.75 mL 3RF E11.65 - Type 2 diabetes mellitus with hyperglycemia
--- OUTSIDE RECORDS SUMMARY | 2024-10-07 14:49 | XMS_ITS | Patient Health Record ---
Author Organization [facility] Address [address] [place] [address] Care Team Providers Care Sales Development Coordinator Name Role Phone Lesly Pinto MD Primary Care Provider Jf Renee Unavailable [phone] Allergies No Known Allergies Results Component Value Reference Range Notes Glucose, Whole Blood Reviewed date:10/24/2023 04:37:02 PM Interpretation: Performing Lab:[facility], [address] [place] [id number] Notes/Report: Glucose, Whole Blood 114 60-115 mg/dL METER # : [id number] Reason For Referral No Information Medications Medication SIG (Take, Route, Frequency, Duration) Notes [...] DAILY Diagnosis Unavailable Oral for 90 Active Social History Tobacco Use: Social History Observation Description Date Details (start date - stop date) Never Smoker NA - NA Tobacco Use/Smoking Question Answer Notes Patient is [...] Never (0 point) Points 0 Interpretation Negative Problems Problem Type SNOMED Code ICD Code Onset Dates Problem Status W/U Status Risk Notes Problem 361418517 Colon cancer screening (Z12.11) Active confirmed Problem 341619939 Early satiety (R68.81) Active confirmed Problem 56929147 Diarrhea, unspecified type (R19.7) Active confirmed Problem 968118091 Gastroesophageal reflux disease, unspecified whether esophagitis present (K21.9) Active confirmed Encounters Encounter Location Date Provider Diagnosis [facility] [address] [place] [address] 10/28/2023 Jf Mercado Plan Of Treatment Future Test Test Name Order Date UPPER GI ENDOSCOPY 10/29/2022 COLONOSCOPY 10/29/2022 Insurance Providers Payer Name Payer Address Payer Phone Subscriber Number Group Number Insured Name Patient Relationship to Insured Coverage Start Date Coverage End Date [facility] [address] [place] [phone] [id number] MYLENE GARCIA Self - patient is the insured Medical (General) History Medical History History ICD Code fibromyalgia Arthritis hypertension hypercholesterolemia type II diabetes Surgical History Surgery Date(Month/Year) Tonsillectomy Appendectomy Cyst removal on ovaries [facility]Y
--- OUTSIDE RECORDS SUMMARY | 2024-10-07 14:49 | XMS_ITS ---
Author Organization [facility] Address [address] [place] [phone] Care Team Providers Care Commercial Stripper Name Role Phone Lesly Pinto MD Primary Care Provider Jf Renee [phone] REASON FOR VISIT R/S procedure Encounters Encounter Location Date Provider Diagnosis [facility] [address] [place] [address] 10/28/2023 Jf Mercado Plan Of Treatment No Information Progress Notes * MYLENE GARCIADOB:1955 (68 yo F)Acc No.[id number]:10/28/2023 Patient:?MYLENE GARCIA :1955???Age:68 Y???Sex:Female Address:[address] [place] [address] , [place], [address] * true * Date:? Generated for Axel gardner/Becca/eTransmitting on:?10/07/2024 02:49 PM EDT
--- OUTSIDE RECORDS SUMMARY | 2024-10-07 14:49 | XMS_ITS ---
Author Organization [facility] Address [address] [place] [address] Care Team Providers Care Agent Ticketing Gate Name Role Phone Lesly Pinto MD Primary Care Provider Jf Renee [phone] REASON FOR VISIT colonoscopy,diarrhea Encounters Encounter Location Date Provider Diagnosis [facility] [address] [place], [place] [phone] 10/24/2023 Jf Mercado Plan Of Treatment No Information Progress Notes * MYLENE GARCIADOB:1955 (69 yo F)Acc No.[id number]:10/24/2023 EGD and COL/MAC Patient:?MYLENE GARCIA Provider:?Jf Mercado MD :1955???Age:68 Y???Sex:Female D ate:10/24/2023 Address:[address] [place], [place] [id number] Pcp:Lesly Pinto MD Subjective: * Chief Complaints: * ???1. Colonoscopy,diarrhea. * Medical History:? Objective: * Vitals:? Assessment: Plan: * Treatment: * * The named appointment provid er may or may not be the originator of this progress note, and it is not deemed complete until electronically signed by the appointment provider. Sign off status: Pending * Provider:?Jf Mercado MD Date:? 024 Generated for Printi ng/Farheag/eTransmitting on:?10/07/2024 02:49 PM EDT
--- OUTSIDE RECORDS SUMMARY | 2024-10-07 14:49 | XMS_ITS ---
Author Organization [facility] Address [address] [place] [phone] Care Team Providers Care Milling/Polishing Operator Name Role Phone Lesly Pinto MD Primary Care Provider Jf Renee [phone] REASON FOR VISIT diarrhea, colonoscopy, satiety, gerd Encounters Encounter Location Date Provider Diagnosis [facility] [address] [place] [phone] 06/20/2023 Jf Mercado Plan Of Treatment No Information Progress Notes * MYLENE GARCIADOB:1955 (69 yo F)Acc No.[id number]:06/20/2023 EGD and COL/MAC Patient:?MYLENE GARCIA Provider:?Jf Mercado MD :1955???Age:68 Y???Sex:Female D ate:06/20/2023 Address:[address] [place], [place] [phone] Pcp:Lesly Pinto MD Subjective: * Chief Complaints: * ???1. Diarrhea, colonoscopy, satiety, gerd. * Medical History:? Objective: * Vitals:? Assessment: [...]
== END 2024-10-07 15:48 | disposition home or self-care (01) ==
LOC: HO.HMCH 14:06
PROVIDERS: PCP Internal Medicine; Visit Provider Internal Medicine
DX: E11.65 Type 2 diabetes mellitus with hyperglycemia (principal); N85.02 Endometrial intraepithelial neoplasia [EIN]; F31.32 Bipolar disorder, current episode depressed, moderate; I10 Essential (primary) hypertension; E78.00 Pure hypercholesterolemia, unspecified; K21.9 Gastro-esophageal reflux disease without esophagitis

== ENCOUNTER → 2024-10-07 14:06 | Outpatient (BNVA) | payer OTHER, MEDICARE, SELFPAY | PROVIDERS: PCP Internal Medicine; Visit Provider Internal Medicine | DX: Z13.89 Encounter for screening for other disorder (principal) ==

== ENCOUNTER 2025-02-07 10:41 | Outpatient (REF) | payer OTHER, MEDICARE, SELFPAY ==
--- OUTSIDE RECORDS SUMMARY | 2023-10-24 03:30 | XMS_ITS ---
Author Organization [facility] Address [address] [place] [id number] Care Team Providers Care Gas Station Supervisor Name Role Phone Lesly Pinto MD Primary Care Provider Jf Renee [phone] REASON FOR VISIT colonoscopy,diarrhea Encounters Encounter Location Date Provider Diagnosis [facility] Outpatient [address] [place] [id number] 10/24/2023 Jf Mercado Plan Of Treatment No Information Progress Notes * MYLENE GARCIADOB:1955 (69 yo F)Acc No.[id number]:10/24/2023 EGD and COL/MAC Patient: MYLENE RESTREPO Provider: Brianna Mercado MD :1955 A ge:68 Y S ex:Female Date:10/24/2023 Address:[address] [place], [place] [phone] Pcp:Lesly Pinto MD Subjective: * Chief Complaints: * 1 . Colonoscopy,diarrhea. * Medical History: Objective: * Vitals: Assessment: Plan: * Treatment: * * The named appointment provid er may or may not be the originator of this progress note, and it is not deemed complete until electronically signed by the appointment provider. Sign off status: Pending * Provider: Brianna Mercado MD Date: 0 10/24/2023 Generated for Kettyi ng/Farheag/eTransmitting on: 0 02/07/2025 01:56 PM EDT
[2025-02-07 10:55] LABS: MANUAL DIFF FLAG NO
[2025-02-07 11:15] LABS: Hematocrit 43.1 % (37.0-47.0); Hemoglobin 14.6 g/dl (12.0-16.0); Imm Gran Abs Auto 0.02 X10*3/uL (0.00-0.03); Imm Gran Pct Auto 0.3 % (0.0-0.4); Lymphocytes Absolute Auto 1.0 X10*3/uL (1.2-4.9); Mean Corpuscular HGB Conc 33.9 g/dl (31.0-35.0); Mean Corpuscular Hemoglobin 29.4 pg (27.0-33.0); Mean Corpuscular Volume 86.9 fL (80.0-98.0); NRBC Abs Auto 0.000 X10*3/uL (0.0-0.012); NRBC Pct Auto 0.0 /100WBC (0.0-0.2); Platelet Count 168 X10*3/uL (160-400); Red Blood Count 4.96 X10*6/uL (4.20-5.50); White Blood Count 5.8 X10*3/uL (4.8-10.8)
[2025-02-07 12:09] LABS: Alanine Aminotransferase 17 U/L (0-31); Albumin Level 4.3 g/dL (3.5-5.0); Alkaline Phosphatase 97 U/L (39-117); Anion Gap 14 (12-20); Aspartate Amino Transferase 21 U/L (5-31); Blood Urea Nitrogen 21 mg/dL (9-16); Calcium 10.3 mg/dL (8.4-10.2); Carbon Dioxide 23 mmol/L (22-29); Chloride 106 mmol/L (96-108); Estimated Glomerular Filt Rate 50; Potassium 3.9 mmol/L (3.3-5.1); Sodium 139 mmol/L (135-145); Total Protein 7.4 g/dL (6.5-8.0); Uric Acid 9.2 mg/dL (2.4-5.7)
--- OUTSIDE RECORDS SUMMARY | 2025-02-07 13:57 | XMS_ITS | Encounter Summary ---
Author Organization [facility] Address [address] [place] [address] Phone Care Team Providers Care Healthcare Marketer Name Role Phone Lesly Pinto MD Primary Care Provider [phone] Encounter Details Date Type Department Care Team ([facility] st Contact Info) Description 06/17/2024 Procedure Pass OR Admitting Dept - Virtual Department [address] [place] [address] Social History Tobacco Use Types Packs/Day Years Used Date Smoking Tobacco: Never Smokeless Tobacco: Never Alcohol Use Standard Drinks/Week Comments Never 0 (1 standard drink = 0.6 oz pur e alcohol) Education Answer Date Recorded Are you interested in more education? Not on mary grace e 08/14/2023 Are you concerned about learning? Not on file 08/14/2023 No 08/14/2023 No 08/14/2023 Food Answer Date Recorded Within the past 6 months we worried whether our food would run out before we got money to buy more. Never True 06/17/2024 Within the past 6 months the food we bought just didn't last and we didn't have enough money to get more. Never True Residential Stability Answer Date Recor ded What is your housing situation today? I have rozina sing 06/17/2024 How many times have you move d in the past 12 months? Zero (I did not move) 06/17/2024 Paying for Meds Answer Date Recorded Do you have trouble paying for medicines? No 06/17/2024 Paying Utility Bills Answer Date Record ed Do you have trouble paying your heating or elect ricity bill? No 06/17/2024 Transportation Answer Date Recorded Has the lack of transportati on kept you from medical appointments or from getting medications? No 06/17/2024 Digital Access Answer Date Recorded No 06/17/2024 Yes 06/17/2024 Do you have reliable internet access at home? Ye s 06/17/2024 Do you have a device (e.g., phone, tablet, computer) with a working camera? Yes 06/17/2024 Intimate Partner Violence Answer Date R ecorded Are you denied basic needs s uch as food, clothing, or medical care? No 06/17/2024 In the past 12 months have y ou been in a relationship with a person who hurts, threatens, or tries to control you? No 06/17/2024 Are you denied basic needs s uch as food, clothing, or medical care? No 06/17/2024 In the past 12 months have y ou been in a relationship with a person who hurts, threatens, or tries to control you? No 06/17/2024 Comments No Sex and Gender Information Value Date Recorded Sex Assigned at Not on file Legal Sex Female 10:35 PM EDT Gender Identity Not on file Sexual Orientation Not on file documented as of this encounter Functional Status * Calculated C-SSRS Risk Score (Lifetime/Recent) Answer Date of Assessment Author No Risk Indicated 06/17/2024 12:54 PM Sofia Tong RN * [place] Suicide Severity Rating Scale (Screener/Recent Self-Report) Question Answer Date of Assessment Author 1. Wish to be (Past 1 Month) No 06/17/2024 12:54 PM Sofia Yanes RN 2. Non-Specific Active Suicidal Thoughts (Past 1 Month) No 06/17/2024 12:54 PM Sofia Yanes RN 6. Suicidal Behavior (Lifetime) No 06/17/2024 12:54 PM Sofia Yanes RN documented as of this encounter Plan of Treatment Not on file documented as of this encounter Visit Diagnoses Not on filedocumented in this encounter Care Teams Healthcare Marketer Relationship Specialty Start Date End Date Lesly Pinto MD [address] [place] [address] Drive [address] [place] [phone] PCP - General Internal Medicine 02/17/24 documented as of this encounter Additional Source Comments The information contained in this document represents components of the legal health record. It is not the complete legal health record.[facility]
--- OUTSIDE RECORDS SUMMARY | 2025-02-07 13:57 | XMS_ITS | Encounter Summary ---
Author Organization [facility] Address [address] [place] [address] Phone Care Team Providers Care Ship Scaler Name Role Phone Lesly Pinto MD Primary Care Provider [phone] Encounter Details Date Type Department Care Team ([facility] st Contact Info) Description 04/01/2024 Procedure Pass OR Admitting Dept - Virtual Department [address] [place] [address] Social History Tobacco Use Types Packs/Day Years Used Date Smoking Tobacco: Never Smokeless Tobacco: Never Alcohol Use Standard Drinks/Week Comments Never 0 (1 standard drink = 0.6 oz pur e alcohol) Education Answer Date Recorded Are you interested in more education? Not on mary grace e 08/14/2023 Are you concerned about learning? Not on file 08/14/2023 No 08/14/2023 No 08/14/2023 Digital Access Answer Date Recorded No 08/14/2023 No 08/14/2023 Reliable internet access at home? Not on file 08/14/2023 Device with a working camera? Not on file Comments No Sex and Gender Information Value Date Recorded Sex Assigned at Not on file Legal Sex Female 10:35 PM EDT Gender Identity Not on file Sexual Orientation Not on file documented as of this encounter Functional Status * Calculated C-SSRS Risk Score (Lifetime/Recent) Answer Date of Assessment Author No Risk Indicated 04/01/2024 11:44 AM Mildred Ferro nd RN * [place] Suicide Severity Rating Scale (Screener/Recent Self-Report) Question Answer Date of Assessment Author 2. Non-Specific Active Suicidal Thoughts (Past 1 Month) No 04/01/2024 11:44 AM Vishnu Graff RN documented as of this encounter Plan of Treatment Not on file documented as of this encounter Visit Diagnoses Not on filedocumented in this encounter Care Teams Ship Scaler Relationship Specialty Start Date End Date Lesly Pinto MD [address] [place] [address] [place] [phone] PCP - General Internal Medicine 02/17/24 documented as of this encounter Additional Source Comments The information contained in this document represents components of the legal health record. It is not the complete legal health record.[facility]
--- OUTSIDE RECORDS SUMMARY | 2025-02-07 13:57 | XMS_ITS | Clinical Summary ---
Author Organization [facility] Address [address] [place] [address] Phone Care Team Providers Care Single Resource Boss Name Role Phone Lesly Pinto MD Primary Care Provider [phone] Allergies No known active allergies Medications DULoxetine (CYMBALTA) 60 MG capsule Take 1 capsule by mouth every morning. 02/17/20 24 Active gabapentin (NEURONTIN) 300 MG capsule Take 1 capsule by mouth 2 (two) times a day. 02/05/20 24 Active metFORMIN (GLUCOPHAGE) 1000 MG tablet Take 1 tablet by mouth 2 (two) times a day. 02/05/20 24 Active metoprolol tartrate (LOPRESSOR) 100 MG tablet Take 1 tablet by mouth 2 (two) times a day. 02/05/20 24 Active mirtazapine (REMERON) 7.5 MG tablet Take 7.5 mg by mouth nightly at bedtime as needed. 02/05/20 24 Active OZEMPIC 1 mg/dose (4 mg/3 mL) subcutaneous injection pen INJECT 1MG SUBCUTANEOUSLY ONCE EVERY WEEK 02/06/20 24 Active lisinopril (PRINIVIL,ZESTRI L) 40 MG tablet Take 40 mg by mouth every morning. 12/13/19 24 Active acetaminophen (TYLENOL) 325 mg tablet Take 2 tablets (650 mg total) by mouth every 6 (six) hours as needed. 04/01/20 24 Active ibuprofen (ADVIL,MOTRIN) 200 MG tablet Take 3 tablets (600 mg total) by mouth every 6 (six) hours as needed for pain (specific location in comments). 04/01/20 24 Active ALPRAZolam (XANAX) 0.25 MG tablet Take 0.25 mg by mouth nightly at bedtime as needed for anxiety. 03/15/20 Active acetaminophen (TYLENOL) 325 mg tablet Take 2 tablets (650 mg total) by mouth every 6 (six) hours as needed. 06/17/19 Active Active Problems Problem Noted Date Diagnosed Date Endometrial adenocarcinoma 02/26/2024 Overview (07/20/2024): On office bx and D&C path Hysterectomy pathology EAC Assessment & Plan (04/26/2024 8:20 AM EST): Pathology reviewed. Recommend TLH/BSO for definitive management. Surgical procedure reviewed including associated risks. Discussed potential for malignancy diagnosis at time of surgery with subsequent need for referral to [facility] ONC. Discussed recovery time/post op activity restrictions. All questions answered, case request submitted. Will start Aygestin to suppress additional bleeding prior to surgery. Assessment & Plan (03/10/2024 2:46 PM EDT): Discussed EIN as precancerous, and there is up to 40% chance of finding an endometrial cancer with a larger tissue sample, such as with a D&C. Rylee does have several risk factors Explained the role of a D&C to get a larger tissue sample, because if there is endometrial cancer, a referral to [facility] MANAGER oncology would be made Most definitive treatment is hysterectomy; medical management with either daily oral progesterone or levonorgestrel IUD (Mirena (are also acceptable treatment options, though these require monitoring with repeat endometrial sampling etc. Discussed D&C hysteroscopy with risks of infection bleeding pain injury to internal organs. Resolved Problems Problem Noted Date Diagnosed Date Resolved Date S/P hysterectomy 06/17/2024 07/20/2024 Postmenopausal bleeding 02/24/2024 0209/2024 Overview (02/24/2024): Multiple EIN risk factors Not on anti-coagulants Assessment & Plan (02/24/2024 11:15 AM EDT): Endometrial bx sent; US ordered ? EIN Social History Tobacco Use Types Packs/Day Years Used Date Smoking Tobacco: Never Smokeless Tobacco: Never Tobacco Cessation:Counseling Given: Not Answered Alcohol Use Standard Drinks/Week Comments Never 0 [...] on file Sexual Orientation Not on file Last Filed Vital Signs Vital Sign Reading Time Taken Comments Blood Pressure 128/78 07/16/2024 11:30 AM EST Pulse 69 06/17/2024 3:31 PM EST Temperature 36.4 C (97.5 F) 06/17/2024 3:31 PM EST Respiratory Rate 16 06/17/2024 3:31 PM EST Oxygen Saturation 97% 06/17/2024 3:31 PM EST Inhaled Oxygen Concentration - - Weight 89.7 kg (197 lb 12.8 oz) 025 11:30 AM EST Height 154.9 cm (5' 1 ) 06/17/2024 7:20 AM EST Body Mass Index 37.37 06/17/2024 7:20 AM EST Plan of Treatment Health Maintenance Due Date Last Done Comments CREATININE LEVEL 1957 LIPID PANEL 1957 POTASSIUM LEVEL 1957 DEPRESSION SCREENING 1969 HEPATITIS C SCREENING 1975 ZOSTER VACCINES (1 of 2) 1976 SCREENING FOR DIABETES 1992 MAMMOGRAM 1997 COLOGUARD 2002 COLONOSCOPY 2002 COLORECTAL CANCER SCREENING 2002 FIT TEST 2002 FOBT 2002 SIGMOIDOSCOPY 2002 VIRTUAL COLONOSCOPY 2002 OSTEOPOROSIS SCREENING INITIAL (ONE-TIME) 2022 INFLUENZA VACCINE (#1) 2024 4, 05/16/2021, 04/10/2020, Additional history exists COVID-19 VACCINE ( - 2024- season) 2025 05/14/2022, 07/13/2020, 06/16/2020 RSV VACCINE (1 - 1-dose 75+ series) 2032 Adult Td,Tdap Booster 10/16/2032 10/16/2022 PNEUMOCOCCAL VACCINES (50+ years) Completed 06/17/2022 SMOKING STATUS SCREENING (Once After 26 Yrs) Completed 07/16/2024 HEPATITIS A VACCINES Aged Out No long er eligible based on patient's age to complete this topic HIB VACCINES Aged Out No longer eligi ble based on patient's age to complete this topic MENINGOCOCCAL VACCINES (ACWY) Aged Out No longer eligible based on patient's age to complete this topic MENINGOCOCCAL VACCINES (B) Aged Out N o longer eligible based on patient's age to complete this topic Medical Devices Implanted Type Area Editor Map Device Identifier Shelf Expiration Date Model / Serial / Lot Lens Lens Bilateral: Eye Insurance O MEDICARE PART A & B HMO MEDICARE PART A & B O MEDICARE PART A & B O MEDICARE PART A & B O MEDICARE PART A & B O MEDICARE PART A & B Advance Directives For more information, please contact: [phone] (9AM - 5PM Anika/[facility], Friday-Friday) * Full Code (Latest Code Status on File) Date Activated Date Inactivated Comments 04/01/2024 1:02 PM Question Answer Comments Code Status Confirmed With: Patient Care Teams Single Resource Boss Relationship Specialty Start Date End Date Lesly Pinto MD [address] [place] [phone] PCP - General Internal Medicine 02/17/24 Additional Source Comments The information contained in this document represents components of the legal health record. It is not the complete legal health record.[facility]
--- OUTSIDE RECORDS SUMMARY | 2025-02-07 13:57 | XMS_ITS | Patient Health Record ---
Author Organization [facility] Address [address] [place] [address] Care Team Providers Care Marker Maker Name Role Phone Lesly Pinto MD Primary Care Provider Jf Renee Unavailable [phone] Allergies No Known Allergies Reason For Referral No Information Medications Medication [...] Active Cholestyramine 4 GM/DOSE use anywhere fr om 1/4 up to 1 scoop in at [...] Problem Status W/U Status Risk Notes Problem 733556568 Colon cancer screening (Z12.11) Active confirmed Problem 470905669 Early satiety (R68.81) Active confirmed Problem 29796564 Diarrhea, unspecified type (R19.7) Active confirmed Problem 558266576 Gastroesophageal reflux disease, unspecified whether esophagitis present (K21.9) Active confirmed Plan Of Treatment Future Test Test Name Order Date UPPER GI ENDOSCOPY 10/29/2022 COLONOSCOPY 10/29/2022 Insurance Providers Payer Name Payer Address Payer Phone Subscriber Number Group Number Insured Name Patient Relationship to Insured Coverage Start Date Coverage End Date [facility] [address] [place] [facility] [id number] MYLENE GARCIA Self - patient is the insured Medical (General) History Medical History History ICD Code fibromyalgia Arthritis hypertension hypercholesterolemia type II diabetes Surgical History Surgery Date(Month/Year) Tonsillectomy Appendectomy Cyst removal on ovaries CCY
== END 2025-02-07 10:42 | disposition home or self-care (01) ==
LOC: HO.LAB 10:41
PROVIDERS: PCP Internal Medicine; Visit Provider Internal Medicine
DX: E11.65 Type 2 diabetes mellitus with hyperglycemia (principal)
CPT/HCPCS: 36415; 80053; 84550; 85025

== ENCOUNTER 2025-02-08 09:22 | Outpatient (AMB) | payer OTHER, MEDICARE, SELFPAY ==
--- OUTSIDE RECORDS SUMMARY | 2023-10-24 03:30 | XMS_ITS ---
Author Organization [facility] Address [address] [place] [id number] Care Team Providers Care Vendette Name Role Phone Lesly Pinto MD Primary Care Provider Jf Renee [phone] REASON FOR VISIT colonoscopy,diarrhea Encounters Encounter Location Date Provider Diagnosis [facility] [address] [place], [place] [phone] 10/24/2023 Jf Mercado Plan Of Treatment No Information Progress Notes * MYLENE GARCIADOB:1955 (69 yo F)Acc No.[id number]:10/24/2023 EGD and COL/MAC Patient: MYLENE RESTREPO Provider: Brianna Mercado MD :1955 A ge:68 Y S ex:Female Date:10/24/2023 Address:[address] [place], [place] [id number] Pcp:Lesly Pinto MD Subjective: * Chief Complaints: * 1 . Colonoscopy,diarrhea. * Medical History: Objective: * Vitals: Assessment: Plan: * Treatment: * * The named appointment provid er may or may not be the originator of this progress note, and it is not deemed complete until electronically signed by the appointment provider. Sign off status: Pending * Provider: Brianna eMrcado MD Date: 0 10/24/2023 Generated for Kettyi ng/Farheag/eTransmitting on: 0 02/08/2025 11:53 AM EDT
[2025-02-08 09:32] VITALS: BP 158/82; PULSE 98; TEMP 36.2; O2SAT 96; BMI 34.8
--- NOTE | 2025-02-08 09:32 | MHC.PC.OV ---
Vital Signs 02/08/25 09:32 Height 5 ft 2 in Weight 190 lb 2 oz BMI 34.8 BP 158/82 H Blood Pressure Location Lt brachial Position Sitting Pulse 98 Pulse Source Pulse Oximeter Temp 97.1 F Temp Source Temporal Artery Scan Pulse Oximetry (%) 96 Oxygen Delivery Method Room Air Intake Visit Reasons: DM Allergies No Known Allergies Allergy (Verified 02/08/25 09:35) Medication List - Last Reconciled 02/08/25 by Lesly Pinto MD acetaminophen 650 mg (2 x 325 mg) PO Q6H PRN 30 days alprazolam 0.25 mg PO BEDTIME PRN amlodipine 2.5 mg PO DAILY atorvastatin 20 mg PO DAILY 90 days blood sugar diagnostic (FreeStyle Lite Strips) As directed check the BS QD blood-glucose meter (FreeStyle Lite Meter kit) As directed duloxetine (Cymbalta) 60 mg PO DAILY 90 days gabapentin 300 mg PO BID hydrochlorothiazide 12.5 mg (1/2 x 25 mg) PO DAILY lancets (FreeStyle Lancets) As directed check BS QD lisinopril 40 mg PO DAILY metformin 1,000 mg PO DAILY metoprolol tartrate 100 mg PO BID 90 days mirtazapine 15 mg PO BEDTIME PRN omeprazole 20 mg PO DAILY 90 days tirzepatide (Mounjaro) 7.5 mg (0.5 mL) subcut QWEEK Tobacco use date assessed: 02/08/25 Fall risk assessment: 2 + Falls in past year Last assessed Fall Risk: 02/08/25 Dental Screening Dental Screen Date: 02/08/25 Did you have a dental visit in the last 12 months?: Yes Did you have a dental problem in the last 6 months where you did not have access to dental care?: No Was dental information given to patient?: Patient has dentist [facility] Medical History Type 2 diabetes mellitus with hyperglycemia Cervical cancer screening Hypercholesterolemia Hypertension Osteoarthritis of left knee Diabetes Numbness Age-related osteoporosis without current pathological fracture Knee pain, bilateral Left leg pain Annual physical exam Preop exam for internal medicine Cataract BMI 37.0-37.9, adult Bipolar 2 disorder Arthritis Diverticulosis BMI 38.0-38.9,adult Obesity Carpal tunnel syndrome Anxiety Insomnia Vitamin D deficiency GERD (gastroesophageal reflux disease) Fibromyalgia Surgical History H/O left knee surgery History of cataract surgery H/O ovarian cystectomy History of colonoscopy History of discectomy History of carpal tunnel release History of tonsillectomy History of cholecystectomy History of appendectomy Family History Father Hypertension CVD (cardiovascular disease) Cancer Mother Hypertension Diabetes Maternal Aunt Colon cancer Father No problems noted. Sister Diabetes Sister Diabetes Sister Diabetes Brother Diabetes Son No problems noted. Son No problems noted. Social History Household Members: Spouse Housing: House Are you a primary dialysis patient care technician to a significant other at home: No Do you presently have visiting nurse or other home services: No Alcohol intake: current Alcohol intake frequency: holidays/special occasions only Patient Tobacco Use Status: Never used Tobacco Tobacco use type: Cigarette e-Cigarette/Vaping Use: Never Used Second Hand Smoke Exposure: No service: No Current occupational status: employed Cognitive needs: No Hearing needs: No Vision needs: Yes (glasses) Questionnaire PHQ-9 Over the last 2 weeks, how often have you been bothered by any of the following problems? 1. Little interest or pleasure in doing things: not at all 2. Feeling down, depressed, or hopeless: several days 3. Trouble falling or staying asleep, or sleeping too much: nearly every day 4. Feeling tired or having little energy: more than half the days 5. Poor appetite or overeating: more than half the days 6. Feeling bad about yourself - or that you are a failure or have let yourself or your family down: not at all 7. Trouble concentrating on things, such as reading the newspaper or watching television: not at all 8. Moving or speaking so slowly that other people could have noticed. Or the opposite - being so fidgety or restless that you have been moving around a lot more than usual: not at all 9. Thoughts that you would be better off or of hurting yourself in some way: not at all Total score: 8 Depression Screening Interpretation: Positive Depression Screening Done: Yes Source: Developed by Drs. Jf Marcelo, Negar LundyBradley and colleagues, with an educational jada from [employer]. Thrive Questionnaire Date Thrive assessed: 09/30/24 I am a: Patient What is your living situation today?: I have a steady place to live Within the past 12 months, did the food you bought not last and you didn't have the money to get more?: Never true Within the past 12 months, did you worry whether your food would run out before you got money to buy more?: Never true Do you have trouble paying for medicines?: No Do you have trouble getting transportation to medical appointments?: No Do you have trouble paying your heating and electricity bill?: No Do you have trouble taking care of your child, family member or friend?: No Do you have trouble with day-to-day activities such as bathing, preparing meals, shopping, managing finances, etc.?: No Are you currently unemployed and looking for a job?: No Are you interested in more education?: No Please select the resources that you would like help with: None Currently or been in a relationship where the following occur: No concerns reported THRIVE Score: 0 AUDIT C Alcohol Use Questionnaire (AUDIT-C) 1. How often do you have a drink containing alcohol?: Monthly or less 2. How many drinks containing alcohol do you have on a typical day when you are drinking?: 1 or 2 3. How often do you have six or more drinks on one occasion?: Never Total Score: 1 PABLO-7 AMB Questionnaire PABLO-7 Date PABLO - 7 assessed: 07/07/24 Feeling nervous, anxious, or on edge: 1 = Several days Not being able to stop or control worryin = Not at all Worrying too much about different things: 0 = Not at all Trouble relaxin = Not at all Being so restless that it is hard to sit still: 0 = Not at all Becoming easily annoyed or irritable: 0 = Not at all Feeling afraid as if something awful might happen: 0 = Not at all Total PABLO-7 score (0-4 normal; 5-9 mild; 10-14 moderate; 15-21 severe): 1 Source: Developed by Drs. Jf Marcelo, Bradley Henning and colleagues, with an educational jada from [employer]. Physical exam (Primary Care) Vital Signs: Last Vital Signs Temp 97.1 F 02/08/25 09:32 Pulse 98 02/08/25 09:32 BP 158/82 H 02/08/25 09:32 Pulse Ox 96 02/08/25 09:32 Oxygen Delivery Method Room Air 02/08/25 09:32 BMI result Body Mass Index 34.8 Tobacco/Smoking Status: Tobacco use Status Tobacco use date assessed 02/08/25 02/08/25 09:38 Patient Tobacco Use Status Never used Tobacco 02/08/25 09:38 Tobacco use type Cigarette 02/08/25 09:38 e-Cigarette/Vaping Use Never Used 02/08/25 09:38 PHQ-9: PHQ-9 Score PHQ-9: Total score 8 02/08/25 10:01 Depression Screening Interpretation: Positive Thrive Assessment: Date of Thrive Assessment Date Thrive assessed 09/30/24 02/08/25 09:38 Currently or been in a relationship where the following occur: No concerns reported Const General: alert; No acute distress Eyes Conjunctivae: conjunctivae normal Resp Auscultation: clear to auscultation bilaterally Cardio Rate: regular rate Rhythm: regular rhythm GI Inspection: Yes normal to inspection Extrem General: Yes normal to inspection and No edema Results AMB Hemoglobin A1c AMB Hemoglobin A1c 6.7 % Last Edit by Zee Field CMA on 02/08/25 09:44 Results Reviewed Results Reviewed: Laboratory Last Values Hgb A1c (Clinic) 6.7 % (4.0-6.0) H 02/08/25 09:38 Coding Level of Care Code Est Pt Level 4 (03877) Complex EM visit Add On G2211 Diagnoses Type 2 diabetes mellitus with hyperglycemia, without long-term current use of insulin E11.65 Diabetes mellitus group home insulin use: without medicaid billing specialist use Essential hypertension I10 Hypertension type: essential hypertension Hypercholesterolemia E78.00 Gastroesophageal reflux disease without esophagitis K21.9 Esophagitis presence: without esophagitis Obesity (BMI 30-39.9) E66.9 Assessment & Plan Assessment & Plan (1) Type 2 diabetes mellitus with hyperglycemia: Comment: [facility] Code(s): E11.65 - Type 2 diabetes mellitus with hyperglycemia Category: Medical Qualifiers: Diabetes mellitus group home insulin use: without medicaid billing specialist use Qualified Code(s): E11.65 - Type 2 diabetes mellitus with hyperglycemia Plan: Decrease the amount of carbohydrate intake, pasta, bread, rice and potatoes are all sugar and that is aside from all the sweet stuff, remember that fruits are good but they are Sweet also. Hemoglobin A1c goal of less than 7.0. Patient is on metformin a 1000 mg once a day and Mounjaro 7.5 mg once a week (2) Hypertension: Code(s): I10 - Essential (primary) hypertension Category: Medical Qualifiers: Hypertension type: essential hypertension Qualified Code(s): I10 - Essential (primary) hypertension Plan: Continue with blood pressure medication. Decrease salt intake and exercise patient on metoprolol 100 mg twice a day lisinopril 40 mg once a day hydrochlorothiazide 12.5 mg once a day and amlodipine 2.5 mg once a day (3) Hypercholesterolemia: Code(s): E78.00 - Pure hypercholesterolemia, unspecified Category: Medical Plan: Avoid fried foods, chicken skin, eggs, butter margarine, pastries and meat. Be it pork or beef they have a lot of cholesterol LDL goal of less than 100 and triglyceride of less than 150 on atorvastatin 20 mg once a day (4) GERD (gastroesophageal reflux disease): Code(s): K21.9 - Gastro-esophageal reflux disease without esophagitis Category: Medical Qualifiers: Esophagitis presence: without esophagitis Qualified Code(s): K21.9 - Gastro-esophageal reflux disease without esophagitis Plan: Avoid the foods that causes that usually spicy foods, tomato products, juices, coffee, soda and foods that your sensitive to. After eating do not lie down, allow 3-4 hours before in lie down. And keep the head of bed above 30 degrees to avoid the acid from going up. (5) Obesity (BMI 30-39.9): Code(s): E66.9 - Obesity, unspecified Category: Medical Plan: Diet and exercise Plan History of Present Illness The patient is a 69-year-old female presenting for a follow-up visit to manage multiple chronic conditions including diabetes mellitus, hypertension, and hypercholesterolemia. The patient has a history of obesity and has recently achieved an 11-pound weight loss through weight management efforts. She has been diagnosed with gastroesophageal reflux disease (GERD) and experiences diarrhea, which she associates with parasalt intake. The patient has a history of bipolar disorder, which is currently managed with medication. She also has a history of endometrial intraepithelial neoplasia, for which she underwent a total abdominal hysterectomy with bilateral salpingo-oophorectomy in May 2024, followed by radiation therapy. The patient has been diagnosed with diabetes mellitus, with a recent hemoglobin A1c of 6.7, indicating suboptimal control. She is currently on metformin and Mounjaro, with plans to increase the Mounjaro dose to improve glycemic control and aid in further weight loss. The patient has hypertension, managed with multiple antihypertensive medications including metoprolol, lisinopril, hydrochlorothiazide, and amlodipine. Her blood pressure was recorded at 144 mmHg during the visit, and she reports home measurements typically around 135-140/80 mmHg. The patient has hypercholesterolemia, with a recent LDL cholesterol level of 96 mg/dL, managed with atorvastatin. Her goal is to maintain LDL levels below 100 mg/dL. The patient has osteopenia, identified during a bone density assessment in December 2022. She is also noted to have vitamin D deficiency, which is being monitored. The patient reports allergies, with an elevated eosinophil count of 7.4%, down from 9% in June. Health Maintenance - Mammogram is up to date, next due in December 2023 - Bone density assessment conducted in December 2022, showing osteopenia - Colonoscopy pending, referral to Dr. Mercado for scheduling - Vitamin D levels are being monitored due to deficiency - Flu vaccine recommended for February - Shingles vaccine discussed, available at pharmacy Social History - The patient is actively involved in weight management and has achieved an 11-pound weight loss. - The patient plans to increase physical activity to sustain weight loss. - The patient is planning travel to [place], [place], and [place], indicating an active lifestyle. Review of Systems - Gastrointestinal: Reports diarrhea associated with parasalt intake, frequent burping, denies nausea. - Cardiovascular: Denies chest pain, reports blood pressure readings at home typically 135-140/80 mmHg. - Endocrine: Reports weight loss of 11 pounds, denies symptoms of hypoglycemia. - Allergic/Immunologic: Reports elevated eosinophil count, denies symptoms of allergies. Physical Exam - Cardiovascular: Blood pressure measured at 144 mmHg, indicating hypertension. Results - Labs: Normal blood count and electrolytes, renal function at 1.1, blood sugar at 125, hemoglobin A1c at 6.7, uric acid at 9.2, liver function normal, LDL cholesterol at 96, low vitamin D, normal thyroid function, no proteinuria. Plan Patient was informed and verbally consented to the use of an ambient scribe for clinic note documentation during this visit. 1. Diabetes Mellitus The patient's diabetes mellitus is currently managed with metformin and Mounjaro, with a recent hemoglobin A1c of 6.7 indicating suboptimal control. The plan includes increasing the Mounjaro dose to 10 mg to improve glycemic control and support further weight loss. 2. Hypertension The patient's hypertension is managed with metoprolol, lisinopril, hydrochlorothiazide, and amlodipine. Blood pressure was recorded at 144 mmHg during the visit, and the patient reports home readings of 135-140/80 mmHg. No changes to the current medication regimen were discussed, pending further home monitoring. 3. Hypercholesterolemia The patient's hypercholesterolemia is managed with atorvastatin, with a recent LDL cholesterol level of 96 mg/dL. The goal is to maintain LDL levels below 100 mg/dL. 4. Obesity The patient has achieved an 11-pound weight loss through weight management efforts. The plan includes increasing physical activity to sustain weight loss and considering an increased dose of Mounjaro to aid in further weight reduction. 5. Gastroesophageal Reflux Disease (Gerd) The patient experiences diarrhea and frequent burping, which may be associated with GERD and parasalt intake. Management includes dietary modifications to avoid fried foods, which exacerbate symptoms. 6. Endometrial Intraepithelial Neoplasia The patient underwent a total abdominal hysterectomy with bilateral salpingo-oophorectomy in May 2024, followed by radiation therapy. No current issues were discussed related to this condition. 7. Osteopenia The patient has osteopenia, identified during a bone density assessment in December 2022. Vitamin D levels are being monitored due to deficiency. Discussion Notes During the visit, we discussed the management of the patient's diabetes mellitus, including the potential increase in Mounjaro dosage to improve glycemic control and support weight loss. We also reviewed the patient's hypertension management, noting the current medication regimen and the importance of home blood pressure monitoring. The patient's hypercholesterolemia is well-managed with atorvastatin, and we aim to maintain LDL levels below 100 mg/dL. We emphasized the importance of lifestyle modifications, including increased physical activity and dietary changes to manage GERD symptoms and support weight loss. Preventative care measures, including mammogram, bone density assessment, and colonoscopy, were reviewed, and the patient was advised on the timing of these screenings. Patient Instructions - Monitor blood pressure at home regularly and report any significant changes. - Continue with current diabetes medications and increase Mounjaro dose as discussed. - Maintain a healthy diet and increase physical activity to support weight loss. - Avoid fried foods to manage GERD symptoms. - Schedule a colonoscopy with Dr. Mercado. - Consider getting the flu vaccine in February and discuss shingles vaccine with the pharmacy. Orders: Orders AMB Hemoglobin A1c Today Z13.9 - Encounter for screening, unspecified Referrals Gastroenterology Referral Z12.11 - Encounter for screening for malignant neoplasm of colon Medications: Changed From tirzepatide (Mounjaro) 7.5 mg (0.5 mL) subcut QWEEK 2 mL 3RF E11.65 - Type 2 diabetes mellitus with hyperglycemia To tirzepatide 10 mg (0.5 mL) subcut QWEEK 2.5 mL 3RF 30 days E11.65 - Type 2 diabetes mellitus with hyperglycemia From omeprazole 20 mg PO DAILY 90 days 90 caps 3RF To omeprazole 20 mg PO DAILY 30 caps 6RF 30 days From atorvastatin 20 mg PO DAILY 90 days 90 tabs 1RF E78.00 - Pure hypercholesterolemia, unspecified To atorvastatin 20 mg PO DAILY 30 tabs 10RF 30 days E78.00 - Pure hypercholesterolemia, unspecified Refilled alprazolam 0.25 mg PO BEDTIME PRN 10 tabs 0RF anxiety F31.32 - Bipolar disorder, current episode depressed, moderate
--- OUTSIDE RECORDS SUMMARY | 2025-02-08 11:53 | XMS_ITS | Encounter Summary ---
Author Organization [facility] Address [address] [place] [id number] Phone Care Team Providers Care Celebrity Manager Name Role Phone Lesly Pinto MD Primary Care Provider [phone] Encounter Details Date Type Department Care Team ([facility] st Contact Info) Description 06/17/2024 Procedure Pass OR Admitting Dept - Virtual Department [address] [place] [address] Social History Tobacco Use Types Packs/Day Years [...] 06/17/2024 12:54 PM Sofia Tong RN * [place] Suicide Severity Rating Scale (Screener/Recent Self-Report) Question [...] on filedocumented in this encounter Care Teams Celebrity Manager Relationship Specialty Start Date End Date Lesly Pinto MD [address] [place] [address] [address] [place] [phone] PCP - General Internal Medicine 02/17/24 documented as of this encounter Additional Source Comments The information contained in this document represents components of the legal health record. It is not the complete legal health record.[facility]
--- OUTSIDE RECORDS SUMMARY | 2025-02-08 11:53 | XMS_ITS | Clinical Summary ---
Author Organization Located Within [facility] Address [address] [facility] [address] [place] [address] Phone Care Team Providers Care Front End Assistant Name Role Phone Lesly Pinto MD Primary Care Provider [phone] Allergies No known active allergies Medications DULoxetine [...] surgery with subsequent need for referral to [facility]. Discussed recovery time/post op activity restrictions. [...] there is endometrial cancer, a referral to [facility]ology would be made Most definitive treatment [...] this topic Medical Devices Implanted Type Area Office Support Assistant Device Identifier Shelf Expiration Date Model / Serial / Lot Lens Lens Bilateral: Eye Insurance O MEDICARE PART A & B HMO MEDICARE PART A & B O MEDICARE PART A & B O MEDICARE PART A & B O MEDICARE PART A & B O MEDICARE PART A & B Advance Directives For more information, please contact: [phone] (9AM - 5PM Anika/[facility], Friday-Friday) * Full Code (Latest Code Status on File) Date Activated Date Inactivated Comments 04/01/2024 1:02 PM Question Answer Comments Code Status Confirmed With: Patient Care Teams Front End Assistant Relationship Specialty Start Date End Date Lesly Pinto MD [address] [place] [address] PCP - General Internal Medicine 02/17/24 Additional Source Comments The information contained in this document represents components of the legal health record. It is not the complete legal health record.[facility]
--- OUTSIDE RECORDS SUMMARY | 2025-02-08 11:53 | XMS_ITS | Patient Health Record ---
Author Organization [facility] Address [address] [place] [address] Care Team Providers Care Pump Room Operator Name Role Phone Lesly Pinto MD Primary Care Provider Jf Renee Unavailable [phone] Allergies No Known Allergies Reason For Referral [...] Problem Status W/U Status Risk Notes Problem [id number] Colon cancer screening (Z12.11) Active confirmed Problem [id number] Early satiety (R68.81) Active confirmed Problem [id number] Diarrhea, unspecified type (R19.7) Active confirmed Problem [id number] Gastroesophageal reflux disease, unspecified whether esophagitis present (K21.9) Active confirmed Plan Of Treatment Future Test Test Name Order Date UPPER GI ENDOSCOPY 10/29/2022 COLONOSCOPY 10/29/2022 Insurance Providers Payer Name Payer Address Payer Phone Subscriber Number Group Number Insured Name Patient Relationship to Insured Coverage Start Date Coverage End Date [facility] [address] [place] [id number] [phone] [id number] MYLENE GARCIA Self - patient is the insured Medical (General) History Medical History History ICD Code fibromyalgia Arthritis hypertension hypercholesterolemia type II diabetes Surgical History Surgery Date(Month/Year) Tonsillectomy Appendectomy Cyst removal on ovaries [facility]
--- OUTSIDE RECORDS SUMMARY | 2025-02-08 11:53 | XMS_ITS | Encounter Summary ---
Author Organization [facility] Address [address] [place] [phone] Phone Care Team Providers Care Scheduling Agent Name Role Phone Lesly Pinto MD Primary Care Provider [phone] Encounter Details Date Type Department Care Team ([facility] st Contact Info) Description 04/01/2024 Procedure Pass OR Admitting Dept - Virtual Department [address] [place] [address] Social History Tobacco Use Types Packs/Day Years [...] 11:44 AM Mildred Ferro nd RN * [place] Suicide Severity Rating Scale (Screener/Recent Self-Report) Question Answer Date of Assessment Author 2. Non-Specific Active Suicidal Thoughts (Past 1 Month) No 04/01/2024 11:44 AM Vishnu Graff RN documented as of this encounter Plan of Treatment Not on file documented as of this encounter Visit Diagnoses Not on filedocumented in this encounter Care Teams Scheduling Agent Relationship Specialty Start Date End Date Lesly Pinto MD [address] [place] [address] [place] [phone] PCP - General Internal Medicine 02/17/24 documented as of this encounter Additional Source Comments The information contained in this document represents components of the legal health record. It is not the complete legal health record.[facility]
== END 2025-02-08 10:05 | disposition home or self-care (01) ==
LOC: HO.HMCH 09:23
PROVIDERS: PCP Internal Medicine; Visit Provider Internal Medicine
DX: E11.65 Type 2 diabetes mellitus with hyperglycemia (principal); I10 Essential (primary) hypertension; E66.9 Obesity, unspecified; Z68.34 Body mass index [BMI] 34.0-34.9, adult; E78.00 Pure hypercholesterolemia, unspecified; K21.9 Gastro-esophageal reflux disease without esophagitis

== ENCOUNTER → 2025-02-08 09:22 | Outpatient (BNVA) | payer OTHER, MEDICARE, SELFPAY | PROVIDERS: PCP Internal Medicine; Visit Provider Internal Medicine | DX: E11.65 Type 2 diabetes mellitus with hyperglycemia (principal); I10 Essential (primary) hypertension; E78.00 Pure hypercholesterolemia, unspecified; K21.9 Gastro-esophageal reflux disease without esophagitis; E66.9 Obesity, unspecified; F31.9 Bipolar disorder, unspecified; M85.80 Other specified disorders of bone density and structure, unspecified site; F31.32 Bipolar disorder, current episode depressed, moderate; Z68.34 Body mass index [BMI] 34.0-34.9, adult | CPT/HCPCS: 83036; 96127 ==

== ENCOUNTER 2025-03-17 14:00 | Emergency (ER) | payer OTHER, MEDICARE, SELFPAY ==
--- OUTSIDE RECORDS SUMMARY | 2023-10-24 03:30 | XMS_ITS ---
Author Organization [facility] Address [address] [place] [phone] Care Team Providers Care Automobile Contract Clerk Name Role Phone Lesly Pinto MD Primary Care Provider Jf Renee [phone] REASON FOR VISIT colonoscopy,diarrhea Encounters Encounter Location Date Provider Diagnosis [facility] Out[facility] [address] [place], [place] [phone] 10/24/2023 Jf Mercado Plan Of Treatment Next Appt Details Provider Name:Jf Mercado , 06/03/2025 01:40:00 PM, [address] [place] [address], Suite [facility], [place], [address], Progress Notes * MYLENE GARCIADOB:1955 (70 yo F)Acc No.[id number]:10/24/2023 EGD and COL/MAC Patient: MYLENE RESTREPO Provider: Brianna Mercado MD :1955 A ge:68 Y S ex:Female Date:10/24/2023 Address:[address] [place], [place] [id number] Pcp:Lesly Pinto MD Subjective: * Chief Complaints: [...] Mercado MD Date: 0 10/24/2023 Generated for Axel gardner/Becca/Tami on: 1 07:07 PM EDT
--- NOTE | ~2025-03-17 | XR_ITS ---
EXAMINATION: XR FOOT 3 OR MORE VIEWS RIGHT, XR ANKLE 3 OR MORE VIEWS RIGHT HISTORY: pain COMPARISON: There are no prior studies available for comparison. FINDINGS: Six views of the right foot and ankle are submitted. Osseous mineralization is normal. There is no fracture or dislocation. There is moderate osteoarthritis of the tarsometatarsal joints with joint space narrowing and osteophyte formation. There are prominent calcaneal spurs at the plantar aspect and at the insertion of the Achilles tendon. There are vascular calcifications. XR/XR foot RT min 3V IMPRESSION: Moderate osteoarthritis of the tarsometatarsal joints. Calcaneal spurs as described. Electronically signed by: Jf Lopez MD 03/17/2025 02:37 PM EDT
--- NOTE | ~2025-03-17 | XR_ITS ---
EXAMINATION: XR FOOT 3 OR MORE VIEWS RIGHT, XR ANKLE 3 OR MORE VIEWS RIGHT HISTORY: pain COMPARISON: There are no prior studies available for comparison. FINDINGS: Six views of the right foot and ankle are submitted. Osseous mineralization is normal. There is no fracture or dislocation. There is moderate osteoarthritis of the tarsometatarsal joints with joint space narrowing and osteophyte formation. There are prominent calcaneal spurs at the plantar aspect and at the insertion of the Achilles tendon. There are vascular calcifications. XR/XR ankle RT min 3V IMPRESSION: Moderate osteoarthritis of the tarsometatarsal joints. Calcaneal spurs as described. Electronically signed by: Jf Lopez MD 03/17/2025 02:37 PM EDT
[2025-03-17 14:04] VITALS: BP 149/77; PULSE 94; RESP 16; TEMP 36.6; O2SAT 97; BMI 34.4
--- NOTE | 2025-03-17 14:08 | ED.GENADULT ---
HPI - General Adult General Chief complaint: Skin/Abscess/Foreign Body Stated complaint: sepsis? sent from urgent care Time Seen by Provider: 03/17/25 15:03 Source: patient and old records reviewed Mode of arrival: ambulatory Limitations: no limitations History of Present Illness ED Provider: ÁLVARO MCALLISTER narrative: 70 yo female with IDDM, HTN, HLD, bipolar here with c/o R heel pain after mowing the lawn on Friday. She has no fevers, no chills, no injury to this area before. She was wearing socks and shoes and denies FB or puncture. She has no bite or itchiness. She cannot bear weight due to the pain. She has mild localized redness to posterior heel. MD complaint: heel pain Onset (ago): day(s) (Friday) Location: right and lower extremity Radiation: non-radiation Severity: moderate Quality: stabbing Pain Consistency: constant Relieving factors: immobilization Exacerbating factors: movement Associated symptoms: other Treatments prior to arrival: none Related Data Home Medications ?Medication ?Instructions ?Recorded ?Confirmed metformin 1,000 mg tablet 1,000 mg PO DAILY 06/30/23 02/08/25 amlodipine 2.5 mg tablet 2.5 mg PO DAILY 08/13/23 02/08/25 Previous Rx's ?Medication ?Instructions ?Recorded blood sugar diagnostic (FreeStyle #100 ea 02/06/23 Lite Strips) blood-glucose meter (FreeStyle #1 ea 02/06/23 Lite Meter kit) lancets 28 gauge (FreeStyle #100 ea 02/06/23 Lancets) metoprolol tartrate 100 mg tablet 100 mg PO BID 90 days #180 tabs 02/06/23 acetaminophen 325 mg tablet 650 mg (2 x 325 mg) PO Q6H PRN 08/14/23 Pain, Mild (Pain Scale 1-3) 30 days #240 tabs lisinopril 40 mg tablet 40 mg PO DAILY #90 tabs 05/24/24 gabapentin 300 mg capsule 300 mg PO BID #180 caps 09/02/24 duloxetine 60 mg capsule,delayed 60 mg PO DAILY 90 days #90 caps 12/09/24 release (Cymbalta) hydrochlorothiazide 25 mg tablet 12.5 mg (1/2 x 25 mg) PO DAILY #90 01/21/25 tabs mirtazapine 15 mg tablet 15 mg PO BEDTIME PRN Insomnia #90 01/25/25 tabs alprazolam 0.25 mg tablet 0.25 mg PO BEDTIME PRN anxiety #10 02/08/25 tabs atorvastatin 20 mg tablet 20 mg PO DAILY 30 days #30 tabs 02/08/25 omeprazole 20 mg capsule,delayed 20 mg PO DAILY 30 days #30 caps 02/08/25 release tirzepatide 10 mg/0.5 mL 10 mg (0.5 mL) subcut QWEEK 30 02/08/25 subcutaneous pen injector days #2.5 mL cephalexin 500 mg capsule 500 mg PO QID 7 days #28 caps 03/17/25 oxycodone 5 mg tablet 5 mg PO Q4H PRN pain 3 days #16 03/17/25 tabs Allergies Allergy/AdvReac Type Severity Reaction Status Date / Time No Known Allergies Allergy Verified 03/17/25 14:06 Review of Systems Review of Systems: Constitutional : No Fever, No Chills ENT/Mouth : No sore throat, No Rhinorrhea Eyes: No Eye Pain, No Swelling, No Redness Cardiovascular : No Chest Pain, No SOB Respiratory : No Cough, No Sputum Gastrointestinal : No Nausea, No Vomiting, No Diarrhea, No abdominal Pain Genitourinary : No Dysuria, No Hematuria Musculoskeletal : pos joint pain, No Myalgias, No Joint Swelling Skin : No Skin Lesions, positive skin rash All other systems reviewed and are negative [facility] Past Medical History Attestation statement: The following information was validated with the patient. Source: old records reviewed Medical History Type 2 diabetes mellitus with hyperglycemia Cervical cancer screening Hypercholesterolemia Hypertension Osteoarthritis of left knee Diabetes Numbness Age-related osteoporosis without current pathological fracture Knee pain, bilateral Left leg pain Annual physical exam Preop exam for internal medicine Cataract BMI 37.0-37.9, adult Bipolar 2 disorder Arthritis Diverticulosis BMI 38.0-38.9,adult Obesity Carpal tunnel syndrome Anxiety Insomnia Vitamin D deficiency GERD (gastroesophageal reflux disease) Fibromyalgia Surgical History H/O left knee surgery History of cataract surgery H/O ovarian cystectomy History of colonoscopy History of discectomy History of carpal tunnel release History of tonsillectomy History of cholecystectomy History of appendectomy Family History Family History Father Hypertension CVD (cardiovascular disease) Cancer Mother Hypertension Diabetes Maternal Aunt Colon cancer Father No problems noted. Sister Diabetes Sister Diabetes Sister Diabetes Brother Diabetes Son No problems noted. Son No problems noted. Social History Social History Household Members: Spouse Housing: House Are you a primary foster care social worker to a significant other at home: No Do you presently have visiting nurse or other home services: No Alcohol intake: current Alcohol intake frequency: holidays/special occasions only Patient Tobacco Use Status: Never used Tobacco Tobacco use type: Cigarette e-Cigarette/Vaping Use: Never Used Second Hand Smoke Exposure: No Advance Directives Date on File: 08/22/23 service: No Current occupational status: employed Cognitive needs: No Hearing needs: No Vision needs: Yes (glasses) Physical Exam ED Vital Signs: Vital Signs - 24 hr 03/17/25 14:04 Temperature 97.9 F Pulse Rate 94 Respiratory Rate 16 Blood Pressure 149/77 H Pulse Oximetry 97 Oxygen Delivery Method Room Air BMI result Body Mass Index 34.4 Appearance: Alert. Oriented X3. No acute distress. Eyes: Pupils equal, round and reactive to light. ENT: Pharynx normal. Neck: Normal inspection. CVS: Pulses normal. Respiratory: No respiratory distress. Abdomen: atraumatic Skin: Skin warm and dry. Normal skin color. Extremities: No lower extremity edema. R posterior calcaneous localized to achills insertion is mild erythema mild warmth but it is tender no fluctuance felt, no joint effusion she can passively and actively plantar/dorsiflex without pain. 2+ DP and PT pulses, no extension of redness. She has homans intact no signs of achilles rupture Neuro: Oriented X 3. No motor deficit. No sensory deficit. Course Course Course Narrative: This is an RME: Additional HPI, ROS, PE not included below will be deferred to primary provider. RME assessment and note performed by: Qiana Davis PA-C This is a 35-ospv-blu-female, with a hx of HTN, who presents to the ER with concerns of right ankle pain, redness, swelling x 3 days. No injury or trauma. No fevers. No hx of gout. Posterior ankle with erythema and TTP. achilles tendon is intact. Unable to bear weight on ankle/foot secondary to the pain. Pt was sent in as an expect to r/o septic joint. Plan: Labs, xray, further ER eval needed Medical Decision Making Medical Decision Making [facility] Narrative: 70 yo female with IDDM, HTN, HLD, bipolar here with c/o R posterior heel pain on Friday after mowing lawn Friday - on exam it appears to be a bursitis. She is diabetic and has some erythema. I am going to obtain labs and xray. She has normal ROM and no pain with moving joint, on exam her achilles appears intact. At this time will do one time dose of dexamethasone for inflammatoin and start on pain control, walking boot, oral cephalexin. Differential Diagnosis Differential Diagnoses: The differential diagnosis associated with the presentation includes cellulitis, bursitis, tendonitis Admission/Observation Consideration of admission/observation: Escalation of care including admission/observation considered labs reaassuring and area is isolated to achilles insertion on calcaneous this is not a septic joint she has pulses intact start in boot, one time dose of dexa, cephalosporin and pain control at home Lab Data [facility] Lab Attestation statement: I reviewed the patient's lab results. 03/17/25 14:16 03/17/25 14:16 Labs: Lab Results 03/17/25 Range/Units 14:16 WBC 10.1 (4.8-10.8) X10*3/uL RBC 5.04 (4.20-5.50) X10*6/uL Hgb 14.7 (12.0-16.0) g/dl Hct 44.4 (37.0-47.0) % MCV 88.1 (80.0-98.0) fL MCH 29.2 (27.0-33.0) pg MCHC 33.1 (31.0-35.0) g/dl RDW 14.0 (11.0-16.0) % Plt Count 214 D (160-400) X10*3/uL MPV 11.5 (9.4-12.3) fL Immature Gran % (Auto) 0.4 (0.0-0.4) % Neut % (Auto) 72.3 (45-73) % Lymph % (Auto) 14.4 L (20-40) % Cavalier % (Auto) 7.8 (2-11) % Eos % (Auto) 4.4 H (0-4) % Baso % (Auto) 0.7 (0-2) % Lymph # (Auto) 1.5 (1.2-4.9) X10*3/uL Cavalier # (Auto) 0.8 (0.1-1.2) X10*3/uL Eos # (Auto) 0.4 (0.0-0.4) X10*3/uL Baso # (Auto) 0.1 (0.0-0.2) X10*3/uL Abs Immat Gran (auto) 0.04 H (0.00-0.03) X10*3/uL Absolute Neuts (auto) 7.3 (2.0-8.3) x10*3/uL Absolute Nucleated RBC 0.000 (0.0-0.012) X10*3/uL Nucleated RBC % (auto) 0.0 (0.0-0.2) /100WBC ESR 24 H (0-20) MM/HR Sodium 139 (135-145) mmol/L Potassium 4.2 (3.3-5.1) mmol/L Chloride 105 (96-108) mmol/L Carbon Dioxide 24 (22-29) mmol/L Anion Gap 14 (12-20) BUN 20 H (9-16) mg/dL Creatinine 1.27 (0.5-1.4) mg/dL Estim Creat Clear Calc 42.9 Estimated GFR 42 Random Glucose 100 (60-115) mg/dL Uric Acid 9.5 H (2.4-5.7) mg/dL Calcium 9.7 (8.4-10.2) mg/dL Total Bilirubin 0.5 (0.0-1.0) mg/dL AST 21 (5-31) U/L ALT 20 (0-31) U/L Alkaline Phosphatase 117 (39-117) U/L C-Reactive Protein 1.79 H (< or = 0.50) mg/dL Total Protein 7.6 (6.5-8.0) g/dL Albumin 4.4 (3.5-5.0) g/dL Independent Interpretation I performed an independent interpretation of an: Plain X-Ray (spur no effusion, no fracture) Radiology Impression Discussion of test interpretation with radiology: I have reviewed the radiologist's reading. External Record Review External record reviewed: Outpatient record Prescription Management I considered prescription management with: Pain Medication, Antibiotic and Other Discharge Plan Discharge Clinical Impression: Retrocalcaneal bursitis Qualifiers: Laterality: right Qualified Code(s): M77.51 - Other enthesopathy of right foot and ankle Patient Disposition: Home, Self-Care Instructions: Heel Spur (ED) Additional Instructions: labs reassuring you were given a one time dose of steroids to get the inflammation down - monitor your blood sugars your last hemoglobin A1c was 5.8 I am going to start you on pain control and given the redness an antibiotics use boot as needed for comfort not more than 1 week return for numbness, worsening pain, increased swelling, cold blue foot or any other concerns I would follow up with your doctor in the next one week to reassess keep elevated On a cephalosporin?antibiotic, softer bowel movements are to be expected. Call your provider if you move your bowels more than 4 times a day, your bowel movements are almost all liquid, or you get a rash.?? Six views of the right foot and ankle are submitted. Osseous mineralization is normal. There is no fracture or dislocation. There is moderate osteoarthritis of the tarsometatarsal joints with joint space narrowing and osteophyte formation. There are prominent calcaneal spurs at the plantar aspect and at the insertion of the Achilles tendon. Prescriptions: New cephalexin 500 mg capsule 500 mg PO QID 7 Days Qty: 28 0RF oxycodone 5 mg tablet 5 mg PO Q4H PRN (Reason: pain) 3 Days Qty: 16 0RF Rx Instructions: Partial Fill upon patient request. No Action lisinopril 40 mg tablet 40 mg PO DAILY Qty: 90 3RF gabapentin 300 mg capsule 300 mg PO BID Qty: 180 2RF duloxetine [Cymbalta] 60 mg capsule,delayed release(DR/EC) 60 mg PO DAILY 90 Days Qty: 90 2RF hydrochlorothiazide 25 mg tablet 12.5 mg PO DAILY Qty: 90 0RF mirtazapine 15 mg tablet 15 mg PO BEDTIME PRN (Reason: Insomnia) Qty: 90 0RF amlodipine 2.5 mg tablet 2.5 mg PO DAILY acetaminophen 325 mg Tablet 650 mg PO Q6H PRN (Reason: Pain, Mild (Pain Scale 1-3)) 30 Days Qty: 240 0RF metformin 1,000 mg tablet 1,000 mg PO DAILY metoprolol tartrate 100 mg tablet 100 mg PO BID 90 Days Qty: 180 2RF (DME) blood-glucose meter [FreeStyle Lite Meter] Kit See Rx Instructions .ROUTE .MEDSUPPLY Qty: 1 0RF Rx Instructions: As directed (DME) FreeStyle Lite Strips Strip See Rx Instructions .ROUTE .MEDSUPPLY Qty: 100 3RF Rx Instructions: As directed check the BS QD (DME) lancets [FreeStyle Lancets] 28 gauge misc See Rx Instructions .ROUTE .MEDSUPPLY Qty: 100 3RF Rx Instructions: As directed check BS QD tirzepatide 10 mg/0.5 mL pen injector 10 mg subcut QWEEK 30 Days Qty: 2.5 3RF omeprazole 20 mg capsule,delayed release(DR/EC) 20 mg PO DAILY 30 Days Qty: 30 6RF atorvastatin 20 mg tablet 20 mg PO DAILY 30 Days Qty: 30 10RF alprazolam 0.25 mg tablet 0.25 mg PO BEDTIME PRN (Reason: anxiety) Qty: 10 0RF Print Language: Andorran
[2025-03-17 14:23] LABS: MANUAL DIFF FLAG NO
[2025-03-17 14:26] LABS: Hematocrit 44.4 % (37.0-47.0); Hemoglobin 14.7 g/dl (12.0-16.0); Imm Gran Abs Auto 0.04 X10*3/uL (0.00-0.03); Imm Gran Pct Auto 0.4 % (0.0-0.4); Lymphocytes Absolute Auto 1.5 X10*3/uL (1.2-4.9); Mean Corpuscular HGB Conc 33.1 g/dl (31.0-35.0); Mean Corpuscular Hemoglobin 29.2 pg (27.0-33.0); Mean Corpuscular Volume 88.1 fL (80.0-98.0); NRBC Abs Auto 0.000 X10*3/uL (0.0-0.012); NRBC Pct Auto 0.0 /100WBC (0.0-0.2); Platelet Count 214 X10*3/uL (160-400); Red Blood Count 5.04 X10*6/uL (4.20-5.50); White Blood Count 10.1 X10*3/uL (4.8-10.8)
[2025-03-17 14:42] LABS: Alanine Aminotransferase 20 U/L (0-31); Albumin Level 4.4 g/dL (3.5-5.0); Alkaline Phosphatase 117 U/L (39-117); Anion Gap 14 (12-20); Aspartate Amino Transferase 21 U/L (5-31); Blood Urea Nitrogen 20 mg/dL (9-16); Calcium 9.7 mg/dL (8.4-10.2); Carbon Dioxide 24 mmol/L (22-29); Chloride 105 mmol/L (96-108); Creatinine Clr Calc Pharmacy 42.9; Estimated Glomerular Filt Rate 42; Potassium 4.2 mmol/L (3.3-5.1); Sodium 139 mmol/L (135-145); Total Protein 7.6 g/dL (6.5-8.0); Uric Acid 9.5 mg/dL (2.4-5.7)
[2025-03-17] MEDS: oxyCODONE HCl Immed Release 5 MG TABLET PO (15:16)
[2025-03-17 16:32] VITALS: BP 149/77; PULSE 94; RESP 16; TEMP 36.6; O2SAT 97
--- OUTSIDE RECORDS SUMMARY | 2025-03-17 19:07 | XMS_ITS | Patient Health Record ---
Author Organization [facility] Address [address] [place] [address] Care Team Providers Care Operations Support Coordinator Name Role Phone Po Lesly BAKER Primary Care Provider Jf Renee Unavailable [phone] Allergies No Known Allergies Reason For Referral No Information Medications Medication SIG (Take, Route, Frequency, Duration) Notes Start Date End Date Status Meloxicam 15 MG TAKE 1 TABLET BY ADRY TH DAILY Diagnosis Unavailable Oral; Duration: 90 Active Atorvastatin Calcium 20 MG TAKE 1 TABLET BY MOUTH DAILY Diagnosis Unavailable Oral; Duration: 90 Active Pregabalin 50 MG Oral; Duration: 30 Active ALPRAZolam 0.25 MG Oral; Duration: 10 Active Omeprazole 20 MG Oral; Duration: 90 Active Mirtazapine 7.5 MG Oral; Duration: 30 Active Lisinopril 40 MG TAKE 1 TABLET BY ADRY TH DAILY Diagnosis Unavailable Oral; Duration: 90 Active Dicyclomine HCl 10 MG TAKE 1 CAPSULE BY MOUTH FOUR TIMES DAILY NEEDED FOR ABDOMINAL DISCOMFORT Diagnosis Unavailable Oral; Duration: 3 Active metFORMIN HCl 1000 MG TAKE 1 TABLET BY M OUTH TWICE DAILY Diagnosis Unavailable Oral; Duration: 90 Active Vitamin D 25 MCG (1000 UT) 1 tablet Oral ly Once a day; Duration: 30 day(s) Active hydroCHLOROthiazide 25 MG Oral; Duration: 30 Active Metoprolol Tartrate 50 MG TAKE 1 AND 1/2 TABLETS BY MOUTH TWICE DAILY Diagnosis Unavailable Oral; Duration: 90 Active Cholestyramine 4 GM/DOSE use anywhere fr om 1/4 up to 1 scoop in at least 8 ounces of water or orange juice Orally Once or twice a day to help with diarrhea; Duration: 30 day(s) 10/31/2022 Active Ondansetron 4 MG Oral; Duration: 3 Active DULoxetine HCl 60 MG TAKE 1 CAPSULE BY M OUTH DAILY Diagnosis Unavailable Oral; Duration: 90 Active Social History Tobacco Use: Social [...] Problem Status W/U Status Risk Notes Problem Colon cancer screening (386644830) Colon cancer screening (Z12.11) Active confirmed Problem Early satiety (336963316) Early satiety (R68.81) Active confirmed Problem Diarrhea (85122631) Diarrhea, unspecified type (R19.7) Active confirmed Problem Gastroesophageal reflux disease (074103543) Gastroesophageal reflux disease, unspecified whether esophagitis present (K21.9) Active confirmed Plan Of Treatment Future Test Test Name Order Date UPPER GI ENDOSCOPY 10/29/2022 COLONOSCOPY 10/29/2022 Next Appt Details Provider Name:Jf Mercado , 06/03/2025 01:40:00 PM, [address] [place] [address], [address], [place], [address], Insurance Providers Payer Name Payer Address Payer Phone Subscriber Number Group Number Insured Name Patient Relationship to Insured Coverage Start Date Coverage End Date [facility] [address] [place] [phone] [id number] MYLENE GARCIA Self - patient is the insured Medical (General) History Medical History History ICD Code fibromyalgia Arthritis hypertension hypercholesterolemia type II diabetes Surgical History Surgery Date(Month/Year) Tonsillectomy Appendectomy Cyst removal on ovaries CCY
--- OUTSIDE RECORDS SUMMARY | 2025-03-17 19:07 | XMS_ITS | Encounter Summary ---
Author Organization [facility] Address [address] [place] [address] Phone Care Team Providers Care Mattress Packer Name Role Phone Lesly Pinto MD Primary Care Provider [phone] Encounter Details Date Type Department Care Team ([facility] st Contact Info) Description 06/17/2024 Procedure Pass OR Admitting Dept - Virtual Department [address] [place] [address] Social History Tobacco Use Types Packs/Day Years [...] 06/17/2024 12:54 PM Sofia Tong RN * Manning Suicide Severity Rating Scale (Screener/Recent Self-Report) Question [...] on filedocumented in this encounter Care Teams Mattress Packer Relationship Specialty Start Date End Date Lesly Pinto MD [address] [place] [address] [address] [place] [id number] PCP - General Internal Medicine 02/17/24 documented as of this encounter Additional Source Comments The information contained in this document represents components of the legal health record. It is not the complete legal health record.[facility]
--- OUTSIDE RECORDS SUMMARY | 2025-03-17 19:07 | XMS_ITS | Encounter Summary ---
Author Organization [facility] Address [address] [place] [address] Phone Care Team Providers Care Director Of Math Name Role Phone Lesly Pinto MD Primary Care Provider [phone] Encounter Details Date Type Department Care Team ([facility] st Contact Info) Description 04/01/2024 Procedure Pass OR Admitting Dept - Virtual Department [address] [place] [address] Social History Tobacco Use Types Packs/Day Years [...] 11:44 AM Mildred Ferro nd RN * Diggs Suicide Severity Rating Scale (Screener/Recent Self-Report) Question Answer Date of Assessment Author 2. Non-Specific Active Suicidal Thoughts (Past 1 Month) No 04/01/2024 11:44 AM Vishnu Graff RN documented as of this encounter Plan of Treatment Not on file documented as of this encounter Visit Diagnoses Not on filedocumented in this encounter Care Teams Director Of Math Relationship Specialty Start Date End Date Lesly Pinto MD [address] [place] [address] [place] [phone] PCP - General Internal Medicine 02/17/24 documented as of this encounter Additional Source Comments The information contained in this document represents components of the legal health record. It is not the complete legal health record.[facility]
--- OUTSIDE RECORDS SUMMARY | 2025-03-17 19:07 | XMS_ITS | Clinical Summary ---
Author Organization [facility] Address [address] [place] [phone] Phone Care Team Providers Care Property Investor Name Role Phone Lesly Pinto MD Primary Care Provider [phone] Allergies No known active allergies Medications DULoxetine [...] surgery with subsequent need for referral to [facility]. Discussed recovery time/post op activity restrictions. [...] there is endometrial cancer, a referral to [facility] would be made Most definitive treatment [...] this topic Medical Devices Implanted Type Area Multiple Cut Off Saw Operator Device Identifier Shelf Expiration Date Model / Serial / Lot Lens Lens Bilateral: [employer] [facility] [place] Address: [place] [address] [place]ICARE PART [place] [facility] [place] Address: [place] [address] [place]ICARE [place] [facility] [place] [place] [address] MEDICARE PART A & B [facility] MEDICARE [place] [facility] Address: [place] [address] MEDICARE PART A & B O MEDICARE PART A & B Advance Directives For more information, please contact: [phone] (9AM - 5PM [facility], Friday-Friday) * Full Code (Latest Code Status on File) Date Activated Date Inactivated Comments 04/01/2024 1:02 PM Question Answer Comments Code Status Confirmed With: Patient Care Teams Property Investor Relationship Specialty Start Date End Date Lesly Pinto MD [address] [place] [address] PCP - General Internal Medicine 02/17/24 Additional Source Comments The information contained in this document represents components of the legal health record. It is not the complete legal health record.[facility]
== END 2025-03-17 16:34 | disposition home or self-care (01) ==
PROVIDERS: Physician Assistant Medical; Emergency Provider Emergency Medicine; PCP Internal Medicine
DX: M77.51 Other enthesopathy of right foot and ankle (principal); M79.671 Pain in right foot; E11.9 Type 2 diabetes mellitus without complications; I10 Essential (primary) hypertension; Z79.899 Other long term (current) drug therapy; Z79.84 Long term (current) use of oral hypoglycemic drugs
CPT/HCPCS: 36415; 73610; 73630; 80053; 84550; 85025; 85652; 86140; 99283; 99284; J1100

== ENCOUNTER → 2025-03-17 14:10 | Outpatient (BNV) | payer OTHER, MEDICARE, SELFPAY | PROVIDERS: PCP Internal Medicine; Visit Provider Radiology Diagnostic Radiology | DX: M19.071 Primary osteoarthritis, right ankle and foot (principal); M77.31 Calcaneal spur, right foot | CPT/HCPCS: 73610; 73630 ==